=== PATIENT | female | born 1960 | race Caucasian/White ===

== ENCOUNTER 2016-09-04 21:39 | Emergency (ER) | payer MEDICARE, MEDICAID ==
[~2016-09-04] VITALS: Ht 165.1 cm; Wt 83.5 kg
[~2016-09-04 21:39] MED LIST: ALLERGY MED; BENZ0.5T3 PO; CEPH500C PO; HYDR-2856 PO; HYDR-2890 PO; LAMO100T69; MTF500T; MTF500T PO; NAPR-243 PO; PARO30TA74; PRD50T PO; PRX25T PO; RISP1TAB19 PO; RISP2TAB18; RISPERDAL; TRAZ50TA67; TRAZ50TA67 PO; [UNRECOGNIZED DRUG - CODE] IM
--- NOTE | 2016-09-04 22:32 | ED General ---
General Chief Complaint: General Problems/Pain Stated Complaint: SORE ON R BREAST, LEFT LEG/BACK PAIN, FACIAL CUTS Source of Information: Patient Exam Limitations: No Limitations History of Present Illness Time Seen by Provider: 22:24 Initial Comments Patient comes in with a 1 day history of sore on her right breast where she states she was cleaning her house and felt a sharp stinging pain and later while in the bath noticed a bright red spot on her right breast where she rest on it but it did not express anything. She states last time she had a mammogram was 1-2 years ago. She does not have a PCP. However she is seen by psychiatry here in [facility] on . She also notes she has a lump over her left back that she states causes pain that shoots down her leg and a sharp, intermittent, electric manner. Thirdly she has some light abrasions over her left cheek that she states have been there for a couple weeks and she picks at them says that they grow boils and she would like something to treat them. She also admits to recently feeling pain in her right nostril and on digging at it pulled a black beetle-like bug out of her nose. Allergies and Home Medications Allergies Coded Allergies: Bee Sting Kit *RETIRED-08/09/10 (Unverified Allergy, Mild, 11/02/08) Penicillins (Unverified Allergy, Mild, 11/02/08) Home Medications Aripiprazole 400 Mg Suser.vial, #1 (Reported) Gabapentin 600 Mg Tablet, #270 (Reported) Mupirocin 22 Gm Oint...g., #22 (Reported) Mupirocin Calcium 15 Gm Cream..g., 15 GM TP BID for 7 Days, #1 Ref 0 Prescribed by: ELIAN BARAKAT on 09/04/162246 Sulfamethoxazole/Trimethoprim 1 Each Tablet, 1 EACH PO BID for 10 Days, #20 Ref 0 Prescribed by: ELIAN BARAKAT on 09/04/162246 Trazodone HCl 100 Mg Tablet, #30 (Reported) Constitutional: No chills, No fever Respiratory: No phlegm, No short of breath, No wheezing Cardiovascular: No chest pain, No edema, No palpitations Gastrointestinal: No abdominal pain, No constipation Genitourinary: No discharge, No dysuria Skin: No pruritus, No rash Past Tchzjar-Kllcuj-Ggiyso Hx Patient Social History Alcohol Use: Occasionally Uses Recreational Drug Use: No Smoking Status: Current Everyday Smoker (3/4) Recent Foreign Travel: No Contact w/Someone Who Travel: No Surgeries HX Surgeries: Yes (perforated uterus, eye surgery) Respiratory Hx Respiratory Disorders: No Cardiovascular Hx Cardiac Disorders: No Physical Exam Vital Signs Vital Sign - Last 12Hours 09/04/16 22:20 Temp 97.9 Pulse 101 Resp 16 B/P (MAP) 117/106 Pulse Ox 96 Capillary Refill : General Appearance: No Apparent Distress, WD/WN Eyes: Bilateral Eye Normal Inspection, Bilateral Eye PERRL Neck: Full Range of Motion, Normal Inspection Respiratory: Chest Non Tender, Lungs Clear, Normal Breath Sounds Cardiovascular: Regular Rate, Rhythm, No Edema Gastrointestinal: Normal Bowel Sounds, No Organomegaly Back: Normal Inspection, No Vertebral Tenderness, Other (small 1 x 2 cm round mobile rubbery mass above left buttock consistent with lipoma) Neurologic/Psychiatric: Alert, Oriented x3, Normal Mood/Affect Skin: Warm/Dry, Other (12:00 position 3-4 cm superior to the areola there is a erythematous patch with a scab and scant purulent drainage without induration, orange peeling or retraction. No mass palpable) Lymphatic: No Adenopathy Progress/Results/Core Measures Results/Orders Vital Signs/I&O Vital Sign - Last 12Hours 09/04/16 09/04/16 22:20 23:00 Temp 97.9 Pulse 101 88 Resp 16 16 B/P (MAP) 117/106 Pulse Ox 96 96 Progress Note : Progress Note Bedside ultrasound probe applied to the right breast did not find loculation, fluid collection, cysts, mass. Departure Impression Impression: Primary Impression: Abscess of breast Additional Impressions: Sciatica Qualified Codes: M54.32 - Sciatica, left side Lipoma of buttock Impetigo Disposition: HOME, SELF-CARE Condition: Stable Departure-Patient Inst. Decision time for Depature: 22:41 Referrals: NO,LOCAL PHYSICIAN (PCP) Primary Care Physician Patient Instructions: ABSCESS Add. Discharge Instructions: You appear to have an abscess on right breast but it is still very [place] to establish with a primary care physician and get set up to do mammography this week if possible. You should apply warm compresses to the affected area 4 times a day until it resolves. You should also take the antibiotics twice daily until they are completed. You should return to the ER or establish with a primary care physician if you are not getting better or have new or worrisome symptoms such as nausea, fever, vomiting. All discharge instructions reviewed with patient and/or family. Voiced understanding. Scripts Mupirocin Calcium (Mupirocin) 15 Gm Cream..g. 15 GM TP BID for 7 Days, #1 TUBE 0 Refills Prov: ELIAN BARAKAT 09/04/16 Sulfamethoxazole/Trimethoprim (Bactrim Ds Tablet) 1 Each Tablet 1 EACH PO BID for 10 Days, #20 TAB 0 Refills Prov: ELIAN BARAKAT 09/04/16 ELIAN BARAKAT Sep 04, 2016 22:32
[2016-09-04] MEDS ORDERED: MUPI22OI2 (22:44)
[2016-09-04] MEDS ORDERED: TRAZ100T92 (22:44)
[2016-09-04] MEDS ORDERED: ARIP400S2 (22:44)
[2016-09-04] MEDS ORDERED: GABA600T2 (22:44)
[2016-09-04] MEDS ORDERED: SULF1TAB35 PO (22:47)
[2016-09-04] MEDS ORDERED: MUPI15CR11 TP (22:47)
[2016-09-04 23:00] VITALS: BP 118/84
== END 2016-09-04 23:00 | disposition home or self-care (01) ==
LOC: EDUNIT# 21:39 → ER 21:42
DX: N61.1 Abscess of the breast and nipple (principal); M54.42 Lumbago with sciatica, left side; L01.00 Impetigo, unspecified; D17.79 Benign lipomatous neoplasm of other sites; F17.210 Nicotine dependence, cigarettes, uncomplicated
CPT/HCPCS: 99281

== ENCOUNTER 2017-04-03 11:02 | Emergency (ER) | payer MEDICARE, MEDICAID ==
[~2017-04-03] VITALS: Ht 165.1 cm; Wt 83.5 kg
[~2017-04-03 11:02] MED LIST changes: +ARIP400S2; +GABA600T2; +MUPI15CR11 TP; +MUPI22OI2; +SULF1TAB35 PO; +TRAZ100T92
--- NOTE | 2017-04-03 11:12 | ED Lower Extremity ---
General Chief Complaint: Lower Extremity Stated Complaint: LT TOE PAIN, FELL OFF PORCH 1 WK AGO Source: patient Exam Limitations: no limitations History of Present Illness Time seen by provider: 11:11 Initial Comments To ER with left third fourth and fifth toe pain after falling off her porch one week ago. Onset: last week Severity: moderate Pain/Injury Location: left 3rd toe, left 4th toe, left 5th toe Method of Injury: fell Allergies and Home Medications Allergies Coded Allergies: Bee Sting Kit *RETIRED-08/09/10 (Unverified Allergy, Mild, 11/02/08) Penicillins (Unverified Allergy, Mild, 11/02/08) Home Medications Aripiprazole 400 Mg Suser.vial, #1 (Reported) Gabapentin 600 Mg Tablet, #270 (Reported) Mupirocin 22 Gm Oint...g., #22 (Reported) Mupirocin Calcium 15 Gm Cream..g., 15 GM TP BID for 7 Days, #1 Ref 0 Prescribed by: ELIAN BARAKAT on 09/04/167 Sulfamethoxazole/Trimethoprim 1 Each Tablet, 1 EACH PO BID for 10 Days, #20 Ref 0 Prescribed by: ELIAN BARAKAT on 09/04/16 2247 Trazodone HCl 100 Mg Tablet, #30 (Reported) Constitutional: see HPI EENTM: see HPI Respiratory: no symptoms reported Cardiovascular: no symptoms reported Genitourinary: no symptoms reported Musculoskeletal: see HPI Skin: no symptoms reported Psychiatric/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: No Symptoms Reported Past Ihaoakw-Ewqgzb-Qmnguc Hx Patient Social History Type Used: Cigarettes Recent Foreign Travel: No Contact w/Someone Who Travel: No Recent Hopitalizations: No Immunizations Up To Date Date of Pneumonia Vaccine: Oct 17, 2009 Psychosocial Behavioral Health Disorders: Anxiety, Bipolar, Personality Disorder Physical Exam Vital Signs Capillary Refill : General Appearance: WD/WN, no apparent distress HEENT: PERRL/EOMI, normal ENT inspection Neck: non-tender, full range of motion Respiratory: no respiratory distress, no accessory muscle use Gastrointestinal: normal bowel sounds, non tender Hips: bilateral hip non-tender, bilateral hip normal inspection, bilateral hip normal range of motion Legs: bilateral leg non-tender, bilateral leg normal inspection, bilateral leg normal range of motion Knees: bilateral knee non-tender, bilateral knee normal inspection, bilateral knee normal range of motion Ankles: bilateral ankle non-tender, bilateral ankle normal inspection, bilateral ankle normal range of motion, bilateral ankle no evidence of injury Feet: bilateral foot non-tender, bilateral foot normal inspection, bilateral foot normal range of motion, bilateral foot no evidence of injury, bilateral foot other (there is no swelling or ecchymosis or erythema or deformity) Neurologic/Psychiatric: alert, normal mood/affect, oriented x 3 Skin: normal color, warm/dry Progress/Results/Core Measures Results/Orders My Orders Orders - PEGGY JOHNSON APRN Foot, Left, 3 Views (04/03/17 11:07) Departure Impression Impression: Primary Impression: Toe fracture Disposition: HOME, SELF-CARE Condition: Stable Departure-Patient Inst. Decision time for Depature: 11:12 Referrals: [facility] (PCP) Primary Care Physician PERLA HOBSON MD (Family) Primary Care Physician Patient Instructions: Toe Fracture Add. Discharge Instructions: 1. Keep these 2 toes taped together for the next 2 weeks 2. Follow-up with your doctor 3. All discharge instructions reviewed with patient and/or family. Voiced understanding. Scripts Hydrocodone/Acetaminophen ([place] 5-325 Tablet) 1 Each Tablet 1 EACH PO Q4H Y for PAIN-SEVERE, #10 TAB Prov: PEGGY JOHNSON APRN 04/03/17 PEGGY JOHNSON APRN Apr 03, 2017 11:12
[2017-04-03] MEDS ORDERED: HYDR-757 PO (11:36)
[2017-04-03 11:45] VITALS: BP 145/89
[2017-04-03] MEDS ORDERED: HYDROcodone/APAP 5 MG/325 MG (LORTAB) TAB PO ONE (11:45)
--- NOTE | 2017-04-03 11:49 | Diagnostic Imaging Report ---
EXAMINATION: 3 views of the left foot. INDICATION: Left foot pain. FINDINGS: There is an oblique fracture through the shaft of the proximal phalanx of the little toe. The mid and distal phalanx in the little toe appears to be fused. The fracture does not have a definite extension into the proximal or distal joints which have a normal alignment. No radiopaque foreign body seen. IMPRESSION: Oblique nondisplaced fractures through the shafts of the proximal phalanx of the little toe. The findings were called to True Lindsey, the ER PA taking care of the patient at time of dictation. Dictated by: Dictated on workstation # [id number]
== END 2017-04-03 11:45 | disposition home or self-care (01) ==
LOC: EDUNIT# 11:02 → ER 11:04
DX: S92.515A Nondisplaced fracture of proximal phalanx of left lesser toe(s), initial encounter for closed fracture (principal); F41.9 Anxiety disorder, unspecified; F31.9 Bipolar disorder, unspecified; W13.8XXA Fall from, out of or through other building or structure, initial encounter
CPT/HCPCS: 73630; 99283

== ENCOUNTER 2017-06-08 21:14 | Emergency (ER) | payer MEDICARE, MEDICAID ==
[~2017-06-08] VITALS: Ht 165.1 cm; Wt 79.8 kg
[~2017-06-08 21:14] MED LIST changes: +HYDR-757 PO
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
--- OUTSIDE RECORDS SUMMARY | 2017-06-08 21:21 | XMS REPORT | Continuity of Care Document ---
Author Author [facility] Address Unknown Phone Unavailable Allergies There is no data. Medications There is no data. Problems There is no data. Procedures There is no data. Results There is no data. Encounters ACCT No. Visit Date/Time Discharge Status Pt. Type Provider Facility Loc./Unit Complaint [id number] 12/30/2011 09:34:00 12/30/2011 23:59:59 [facility] Outpatient ARCHIE BARON DDS
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
--- OUTSIDE RECORDS SUMMARY | 2017-06-08 21:21 | XMS REPORT ---
Author Author TIP VO Organization [facility] Address [address] [place] [address] Care Team Providers Care Obstetrics Teacher Name Role Phone TIP VO Unavailable PROBLEMS Type Condition ICD9-CM Code [id number] Code Onset Dates Condition Status SNOMED Code Problem Obesity (BMI 30-39.9) E66.9 Active 875733019 Problem Bipolar affective disorder in remission F31.70 Active 43895026 Problem Schizophrenia in remission F20.9 Active 8401205 Problem Chronic pain syndrome G89.4 Active 579221243 Problem Type 2 diabetes mellitus with diabetic neuropathy, without long-term current use of insulin E11.40 Active 02182611 Problem Breast pain in female N64.4 Active 75623970 ALLERGIES Substance Reaction Event Type Date Status Penicillin V Potassium anaphylaxis Drug Allergy May, Active bee stings swelling Non Drug Allergy May, Active SOCIAL HISTORY No smoking Hx information available PLAN OF CARE VITAL SIGNS MEDICATIONS Medication Instructions Dosage Frequency Start Date End Date Duration Status MetFORMIN HCl ER 500 MG Orally 2 times a day 1 tablet 12h 30 days Active Mobic 7.5 MG Orally Once a day 1 tablet 24h Active Trazodone HCl 100 MG Orally Once a day 1 tablet at bedtime 24h Active Gabapentin 100 mg Orally Once a day take with 300 mg tablet 1 tablet Active Abilify Maintena 400 MG Intramuscular every 28 days 2 ml Active Paroxetine HCl 20 MG Orally Once a day 1 tablet in the morning 24h Active RESULTS No Results PROCEDURES No Known procedures IMMUNIZATIONS No Known Immunizations
[2017-06-08] MEDS ORDERED: MELO7.5T46 (21:29)
[2017-06-08] MEDS ORDERED: DICL75TA2 (21:29)
[2017-06-08] MEDS ORDERED: METF500T4 (21:29)
[2017-06-08 21:42] LABS: BILIRUBIN,URINE NEGATIVE (NEGATIVE); CLARITY,URINE CLEAR; COLOR,URINE YELLOW; GLUCOSE, URINE (UA) NEGATIVE (NEGATIVE); KETONES,URINE NEGATIVE (NEGATIVE); LEUKOCYTE ESTERASE ,URINE 1+ (NEGATIVE); NITRITE,URINE NEGATIVE (NEGATIVE); PH,URINE 7 (5-9); PROTEIN,URINE NEGATIVE (NEGATIVE); UROBILINOGEN,URINE NORMAL (NORMAL)
[2017-06-08 21:52] LABS: BACTERIA,URINE NEGATIVE /HPF; SQUAMOUS EPITHELIAL CELL,UR 0-2 /HPF; WBC,URINE RARE /HPF
--- NOTE | 2017-06-08 21:57 | Diagnostic Imaging Report ---
INDICATION: Abdominal pain and nausea. COMPARISON: Chest radiograph performed concurrently. FINDINGS: Nonobstructive bowel gas pattern. No evidence of free intraperitoneal air. [id number] volume of colonic stool. Normal regional skeleton. IMPRESSION: Nonobstructive bowel gas pattern. Dictated by: Dictated on workstation # [id number]
--- NOTE | 2017-06-08 21:57 | Diagnostic Imaging Report ---
INDICATION: Abdominal pain and cough. COMPARISON: Abdominal radiograph performed concurrently. TECHNIQUE: Two views of the chest were obtained. FINDINGS: Retrocardiac ill-defined opacities are seen on the lateral radiograph. No pleural effusion or pneumothorax. Heart is normal in size. Normal pulmonary vasculature. IMPRESSION: Lower lobe retrocardiac opacities seen on the lateral radiograph could relate to infectious process in the appropriate setting. If patient does not have symptoms of infection, then this could represent summation shadow of normal pulmonary vasculature. Dictated by: Dictated on workstation # [id number]
[2017-06-08 22:11] LABS: BASOPHILS % (AUTO) 0 % (0-10); EOSINOPHILS # (AUTO) 0.3 10^3/uL (0.0-0.3); EOSINOPHILS % (AUTO) 2 % (0-10); HEMATOCRIT 42 % (35-52); HEMOGLOBIN 14.9 G/DL (11.5-16.0); LYMPHOCYTES # (AUTO) 3.7 X 10^3 (1.0-4.0); LYMPHOCYTES % (AUTO) 29 % (12-44); MEAN CORPUSCULAR HEMOGLOBIN 32 PG (25-34); MEAN CORPUSCULAR HGB CONC 35 G/DL (32-36); MEAN CORPUSCULAR VOLUME 92 FL (80-99); MEAN PLATELET VOLUME 9.8 FL (7.4-10.4); MONOCYTES # (AUTO) 0.9 X 10^3 (0.0-1.0); MONOCYTES % (AUTO) 7 % (0-12); NEUTROPHILS # (AUTO) 8.1 X 10^3 (1.8-7.8); NEUTROPHILS % (AUTO) 63 % (42-75); PLATELET COUNT 302 10^3/uL (130-400); RED BLOOD COUNT 4.62 10^6/uL (4.35-5.85); RED CELL DISTRIBUTION WIDTH 13.8 % (10.0-14.5); WHITE BLOOD COUNT 12.9 10^3/uL (4.3-11.0)
[2017-06-08 22:32] LABS: ALANINE AMINOTRANSFERASE 23 U/L (0-55); ALBUMIN 3.9 GM/DL (3.2-4.5); ALKALINE PHOSPHATASE 77 U/L (40-136); BILIRUBIN,TOTAL 0.2 MG/DL (0.1-1.0); BUN/CREATININE RATIO 13; CALCIUM 9.3 MG/DL (8.5-10.1); CARBON DIOXIDE 20 MMOL/L (21-32); CHLORIDE 105 MMOL/L (98-107); CREATININE SERUM 0.87 MG/DL (0.60-1.30); GFR ESTIMATED > 60; GLUCOSE 104 MG/DL (70-105); POTASSIUM 4.1 MMOL/L (3.6-5.0); SODIUM 138 MMOL/L (135-145); TOTAL PROTEIN 7.3 GM/DL (6.4-8.2)
--- NOTE | 2017-06-08 22:44 | ED General ---
General Chief Complaint: Chest Wall/Rib Pain Stated Complaint: COUGH CHEST PAIN NECK PAIN NOSE BLEED Nursing Triage Note: cough, chest wall pain, painful urination x2 weeks, nose bleed tonight. Nursing Sepsis Screen: No Definite Risk Allergies and Home Medications Allergies Coded Allergies: Bee Sting Kit *RETIRED-08/09/10 (Unverified Allergy, Mild, 11/02/08) Penicillins (Unverified Allergy, Mild, 11/02/08) Home Medications Diclofenac Sodium 75 Mg Tablet., (Reported) Gabapentin 600 Mg Tablet, #270 (Reported) Meloxicam 7.5 Mg Tablet, (Reported) Metformin HCl 500 Mg Tablet, (Reported) Trazodone HCl 100 Mg Tablet, #30 (Reported) Past Eymuofl-Hqkfrf-Vwdsoz Hx Patient Social History Alcohol Use: Denies Use Recreational Drug Use: No Type Used: Cigarettes 2nd Hand Smoke Exposure: Yes Recent Foreign Travel: No Contact w/Someone Who Travel: No Recent Infectious Disease Expo: No Recent Hopitalizations: No Immunizations Up To Date Tetanus Booster (TDap): Unknown Date of Pneumonia Vaccine: Oct 17, 2009 Seasonal Allergies Seasonal Allergies: No Surgeries History of Surgeries: Yes (perforated uterus, eye surgery) Respiratory History of Respiratory Disorde: No Cardiovascular History of Cardiac Disorders: No 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 History of 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 Disord: No 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 Genitourinary History of Genitourinary Disor: Yes Genitourinary Disorders: UTI-Chronic Gastrointestinal History of Gastrointestinal Di: No Musculoskeletal History of Musculoskeletal Dis: Yes (chronic neck pain, toe pain) Musculoskeletal Disorders: Arthritis Endocrine History of Endocrine Disorders: Yes Endocrine Disorders: Diabetes, Non-Insulin dep HEENT History of HEENT Disorders: Yes HEENT Disorders: Cataract Cancer History of Cancer: No Psychosocial History of Psychiatric Problem: Yes Behavioral Health Disorders: Anxiety, Bipolar, Personality Disorder Integumentary History of Skin or Integumenta: No Physical Exam Vital Signs Vital Sign - Last 12Hours 06/08/17 21:20 Temp 97.9 Pulse 104 Resp 18 B/P (MAP) 114/81 (92) Pulse Ox 95 O2 Delivery Room Air Capillary Refill : Less Than 3 Seconds Progress/Results/Core Measures Suspected Sepsis Recent Fever Within 48 Hours: No Infection Criteria Present: None New/Unexplained Altered Menta: No Sepsis Screen: No Definite Risk Sepsis Diagnosis: SIRS Temperature:97.9 Pulse: 104 Respiratory Rate: 18 Laboratory Tests 06/08/17 21:58: White Blood Count 12.9H Blood Pressure 114 /81 Mean: 92 Laboratory Tests 06/08/17 21:58: Creatinine 0.87, Platelet Count 302, Total Bilirubin 0.2 Results/Orders Lab Results Laboratory Tests Test 06/08/17 21:30 06/08/17 21:58 Range/Units Urine Color YELLOW Urine Clarity CLEAR Urine pH 7 5-9 Urine Specific [place] 1.010 L 1.016-1.022 Urine Protein NEGATIVE NEGATIVE Urine Glucose (UA) NEGATIVE NEGATIVE Urine Ketones NEGATIVE NEGATIVE Urine Nitrite NEGATIVE NEGATIVE Urine Bilirubin NEGATIVE NEGATIVE Urine Urobilinogen NORMAL NORMAL MG/DL Urine Leukocyte Esterase 1+ H NEGATIVE Urine RBC (Auto) NEGATIVE NEGATIVE Urine RBC NONE /HPF Urine WBC RARE /HPF Urine Squamous Epithelial Cells 0-2 /HPF Urine Crystals NONE /LPF Urine Bacteria NEGATIVE /HPF Urine Casts NONE /LPF Urine Mucus NEGATIVE /LPF Urine Culture Indicated NO White Blood Count 12.9 H 4.3-11.0 10^3/uL Red Blood Count 4.62 4.35-5.85 10^6/uL Hemoglobin 14.9 11.5-16.0 G/DL Hematocrit 42 35-52 % Mean Corpuscular Volume 92 80-99 FL Mean Corpuscular Hemoglobin 32 25-34 PG Mean Corpuscular Hemoglobin Concent 35 32-36 G/DL Red Cell Distribution Width 13.8 10.0-14.5 % Platelet Count 302 130-400 10^3/uL Mean Platelet Volume 9.8 7.4-10.4 FL Neutrophils (%) (Auto) 63 42-75 % Lymphocytes (%) (Auto) 29 12-44 % Monocytes (%) (Auto) 7 0-12 % Eosinophils (%) (Auto) 2 0-10 % Basophils (%) (Auto) 0 0-10 % Neutrophils # (Auto) 8.1 H 1.8-7.8 X 10^3 Lymphocytes # (Auto) 3.7 1.0-4.0 X 10^3 Monocytes # (Auto) 0.9 0.0-1.0 X 10^3 Eosinophils # (Auto) 0.3 0.0-0.3 10^3/uL Basophils # (Auto) 0.0 0.0-0.1 10^3/uL Sodium Level 138 135-145 MMOL/L Potassium Level 4.1 3.6-5.0 MMOL/L Chloride Level 105 98-107 MMOL/L Carbon Dioxide Level 20 L 21-32 MMOL/L Anion Gap 13 5-14 MMOL/L Blood Urea Nitrogen 11 7-18 MG/DL Creatinine 0.87 0.60-1.30 MG/DL Estimat Glomerular Filtration Rate > 60 BUN/Creatinine Ratio 13 Glucose Level 104 70-105 MG/DL Calcium Level 9.3 8.5-10.1 MG/DL Total Bilirubin 0.2 0.1-1.0 MG/DL Aspartate Amino Transf (AST/SGOT) 16 5-34 U/L Alanine Aminotransferase (ALT/SGPT) 23 0-55 U/L Alkaline Phosphatase 77 40-136 U/L Total Protein 7.3 6.4-8.2 GM/DL Albumin 3.9 3.2-4.5 GM/DL Micro Results Microbiology 06/08/17 Influenza Types A,B Antigen (VERENA) - Final, Complete My Orders Orders - RACHAEL SOTO MD Cbc With Automated Diff (06/08/17 21:21) Comprehensive Metabolic Panel (06/08/17 21:21) Ua Culture If Indicated (06/08/17 21:21) Influenza A And B Antigens (06/08/17 21:21) Saline Lock/Iv-Start (06/08/17 21:21) Chest Pa/Lat (2 View) (06/08/17 21:21) Abdomen/Kub 1view (06/08/17 21:32) Ketorolac Injection (Toradol Injection) (06/08/17 23:00) Azithromycin Tablet (Zithromax Tablet) (06/08/17 23:00) Vital Signs/I&O Vital Sign - Last 12Hours 06/08/17 21:20 Temp 97.9 Pulse 104 Resp 18 B/P (MAP) 114/81 (92) Pulse Ox 95 O2 Delivery Room Air Capillary Refill : Less Than 3 Seconds Blood Pressure Mean: 92 Progress Note : Time: 22:51 Progress Note Workup revealed leukocytosis and a left lower lobe lung infiltrate. This is suspicious for pneumonia. Patient was treated with azithromycin orally and provided a prescription to follow. Her abdominal pain and chest pain seemed to correlate with cough. However, patient describes a uterine mass identified 5 years ago for which she was to have a hysterectomy. She never followed up on that. I'm advising that she follow-up in the outpatient setting for further evaluation, possibly with outpatient imaging such as ultrasound. She was given Toradol emergency room for further treatment of her pain. I'm also recommending that she quit smoking and follow up on the chest x-ray in a week or 2 to document improvement. Diagnostic Imaging Diagonstic Imaging: Xray Plain Films/CT/US/NM/MRI: abdomen Comments Abdominal x-ray viewed by me and report reviewed. See report below: NAME: DEON URBINA [facility] REC#: [id number] PT STATUS: REG ER : 1960 PHYSICIAN: RACHAEL SOTO MD ADMIT DATE: 06/08/17/ER Signed Date of Exam:06/08/17 ABDOMEN/KUB 1VIEW INDICATION: Abdominal pain and nausea. COMPARISON: Chest radiograph performed concurrently. FINDINGS: Nonobstructive bowel gas pattern. No evidence of free intraperitoneal air. Dtjff-ru-iilvmptq volume of colonic stool. Normal regional skeleton. IMPRESSION: Nonobstructive bowel gas pattern. Dictated by: Dictated on workstation # [id number] Dict: 06/08/172151 Trans: 06/08/172157 [facility] [id number] Interpreted by: SELMA CARRERA MD Electronically signed by: SELMA CARRERA MD 06/08/172157 Diagonstic Imaging: Xray Plain Films/CT/US/NM/MRI: chest Comments Chest x-ray viewed by me and report reviewed. See report below: NAME: DEON URBINA [facility] REC#: [id number] PT STATUS: REG ER : 1960 PHYSICIAN: RACHAEL SOTO MD ADMIT DATE: 06/08/17/ER Draft Date of Exam:06/08/17 CHEST PA/LAT (2 VIEW) INDICATION: Abdominal pain and cough. COMPARISON: Abdominal radiograph performed concurrently. TECHNIQUE: Two views of the chest were obtained. FINDINGS: Retrocardiac ill-defined opacities are seen on the lateral radiograph. No pleural effusion or pneumothorax. Heart is normal in size. Normal pulmonary vasculature. IMPRESSION: Lower lobe retrocardiac opacities seen on the lateral radiograph could relate to infectious process in the appropriate setting. If patient does not have symptoms of infection, then this could represent summation shadow of normal pulmonary vasculature. Dictated on workstation # [id number] Dict: 06/08/172152 Trans: 06/08/172199 [facility] [id number] Interpreted by: SELMA CARRERA MD Departure Impression Impression: Primary Impression: Left lower lobe pneumonia Qualified Codes: J18.1 - Lobar pneumonia, unspecified organism Additional Impressions: Abdominal pain, left lower quadrant Pleuritic chest pain Disposition: HOME, SELF-CARE Condition: Improved Departure-Patient Inst. Decision time for Depature: 22:52 Referrals: [facility] (PCP) Primary Care Physician PERLA HOBSON MD (Family) Primary Care Physician Patient Instructions: Community-Acquired Pneumonia in Adults Add. Discharge Instructions: Drink plenty of clear liquids. Complete your antibiotics as prescribed. Follow -up with your primary care provider in 1 to 2 weeks. It is important that you follow-up on the chest x-ray with a repeat x-ray to document improvement. You also need to follow-up on the uterine mass you described was identified 5 years ago. Discussed this with your primary care provider. Reduce smoking is much as possible and work toward quitting. You may substitute nicotine with gum, patches, or lozenges. Do not replace with [id number] inhaled nicotine products. Return to care if symptoms worsen. For further short-term treatment of your pain, you may add ibuprofen up to 600 mg every 6 hours as needed. Ibuprofen should not be taken long-term in people with diabetes. All discharge instructions reviewed with patient and/or family. Voiced understanding. Scripts Azithromycin (Azithromycin) 250 Mg Tablet 250 MG PO DAILY, #4 TAB Prov: RACHAEL SOTO MD 06/08/17 Copy Copies To 1: PERLA HOBSON MD, JOSHUA T MD Jun 08, 2017 22:44
[2017-06-08] MEDS ORDERED: AZIT250T12 PO (22:52)
[2017-06-08] MEDS ORDERED: AZITHROMYCIN 250 MG TAB (ZITHROMAX) PO ONE (23:00)
[2017-06-08] MEDS ORDERED: KETOROLAC 30 MG/ML VIAL IVP ONE (23:00)
[2017-06-08 23:01] VITALS: BP 122/78
== END 2017-06-08 23:00 | disposition home or self-care (01) ==
LOC: EDUNIT# 21:14 → ER 21:16
DX: J18.1 Lobar pneumonia, unspecified organism (principal); R10.32 Left lower quadrant pain; E11.9 Type 2 diabetes mellitus without complications; F41.9 Anxiety disorder, unspecified; F31.9 Bipolar disorder, unspecified; F60.9 Personality disorder, unspecified; Z79.84 Long term (current) use of oral hypoglycemic drugs; Z77.22 Contact with and (suspected) exposure to environmental tobacco smoke (acute) (chronic)
CPT/HCPCS: 36415; 71046; 74018; 80053; 81000; 85025; 87804; 96374

== ENCOUNTER → 2017-06-30 | Outpatient (CLI) | payer MEDICARE, MEDICAID ==
[~2017-06-30] MED LIST changes: +AZIT250T12 PO; +DICL75TA2; +MELO7.5T46; +METF500T4
--- NOTE | 2017-06-30 15:42 | Diagnostic Imaging Report ---
INDICATION: Chronic pelvic pain. FINDINGS: Transabdominal and transvaginal pelvic sonography was performed. The uterus measures 5.3 x 3.5 x 2.4 cm. Endometrium is 3 mm in thickness. No myometrial mass is identified. The ovaries are not visualized. There is no free fluid. IMPRESSION: Nonvisualized ovaries. The study is otherwise unremarkable. Dictated by: Dictated on workstation # [id number]
--- NOTE | 2017-06-30 19:27 | Diagnostic Imaging Report ---
INDICATION: Routine screening. The current study was also evaluated with a Computer Aided Detection (CAD) system. Comparison is made with prior exam from 01/02/2005. Scattered fibroglandular densities are identified bilaterally. Overall breast density has decreased since prior examination from 2004. Small benign-appearing nodular densities are identified bilaterally. There are benign calcifications bilaterally. No malignant appearing microcalcifications are seen. The axillae are unremarkable. IMPRESSION: No mammographic features suspicious for malignancy are identified. ACR BI-RADS Category 2: Benign findings. Result letter will be mailed to the patient. Note: At least 10% of breast cancer is not imaged by mammography. Dictated by: Dictated on workstation # [id number]
== END ==
LOC: RAD 13:57
PROVIDERS: ATTEND Obstetrics & Gynecology
DX: Z12.31 Encounter for screening mammogram for malignant neoplasm of breast (principal); R10.2 Pelvic and perineal pain
CPT/HCPCS: 76830; 76856; 77067

== ENCOUNTER 2018-04-25 12:03 | Emergency (ER) | payer MEDICARE, MEDICAID ==
[~2018-04-25] VITALS: Ht 165.1 cm; Wt 83.9 kg
[~2018-04-25 12:03] MED LIST changes: +HYDR-4226 PO; -HYDR-757 PO; +METF-397; -METF500T4; +TRAZ-190; -TRAZ100T92
--- NOTE | 2018-04-25 12:33 | ED Cough/URI ---
General Chief Complaint: Cough/Cold/Flu Symptoms Stated Complaint: HOARSE THROAT/FACIAL SWELLING/COUGH Nursing Triage Note: PATIENT HERE FOR CONCERNS ABOUT THE FLU. SHE DID NOT GET HER SHOT THIS YEAR. SHE STATES SHE HAS BEEN HAVING SYMPTOMS FOR ABOUT 3 WEEKS. SHE HAS HAD A RUNNY NOSE , CHAPPED LIPS, BODY ACHES, DIARRHEA, EYE DRAINAGE AND A COUGH THAT HAS BEEN PRODUCTIVE ON AND OFF. Source: patient Exam Limitations: no limitations History of Present Illness Date Seen by Provider: Apr 25, 2018 Time Seen by Provider: 12:30 Initial Comments The patient reports that she has had upper respiratory symptoms for about 3 weeks which includes runny nose and cough and some hoarseness. There is also been body aches chapped lips. There has been no dyspnea. The cough has been productive at intervals. She denies fever or chills. She now apparently rues not getting a flu shot. Timing/Duration: other (3 weeks) Severity/Quality: moderate, severe, productive cough, sputum Associated Symptoms: muscle aches, sinus infection, sore throat Allergies and Home Medications Allergies Coded Allergies: Bee Sting Kit *RETIRED-08/09/10 (Unverified Allergy, Mild, 11/02/08) Penicillins (Unverified Allergy, Mild, 11/02/08) Home Medications Azithromycin 250 Mg Tablet, 250 MG PO DAILY Prescribed by: RACHAEL JOSEPH on 06/08/17 5935 Patient Home Medication List Home Medication List Reviewed: Yes Review of Systems Review of Systems Constitutional: see HPI EENTM: see HPI, hoarseness Respiratory: cough, dyspnea on exertion, phlegm Cardiovascular: no symptoms reported Gastrointestinal: no symptoms reported Genitourinary: no symptoms reported Musculoskeletal: no symptoms reported Skin: no symptoms reported Psychiatric/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: No Symptoms Reported Hematologic/Lymphatic: No Symptoms Reported Immunological/Allergic: no symptoms reported Past Ivrevqe-Nvbdpp-Ieyalq Hx Patient Social History Alcohol Use: Denies Use Recreational Drug Use: No Smoking Status: Current Everyday Smoker Type Used: Cigarettes 2nd Hand Smoke Exposure: Yes Recent Foreign Travel: No Contact w/Someone Who Travel: No Recent Infectious Disease Expo: No Recent Hopitalizations: No Immunizations Up To Date Tetanus Booster (TDap): Unknown Date of Pneumonia Vaccine: Oct 17, 2009 Seasonal Allergies Seasonal Allergies: No Past Medical History Surgeries: Yes (perforated uterus, eye surgery) Respiratory: No Cardiac: No 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: No 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 0oz. [id number]; 33.11 BMI Method:Stated General Appearance: mild distress, other (moderately hoarse) Eyes: Bilateral Eye Normal Inspection HEENT: normal ENT inspection Neck: non-tender, full range of motion, normal inspection Respiratory: other (basilar rhonchi in posterior lung field bilaterally) Cardiovascular: normal peripheral pulses, regular rate, rhythm, no edema, no gallop, no JVD, no murmur Gastrointestinal: normal bowel sounds, non tender, soft, no organomegaly, no pulsatile mass Extremities: normal range of motion, non-tender, normal inspection, no pedal edema, no calf tenderness, normal capillary refill, pelvis stable Neurologic/Psychiatric: 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 II-XII nml as tested, no motor/sensory deficits, alert, normal mood/affect, oriented x 3 Skin: normal color, warm/dry Lymphatic: no adenopathy Progress/Results/Core Measures Suspected Sepsis Recent Fever Within 48 Hours: No Infection Criteria Present: Suspected New Infection New/Unexplained Altered Menta: No Sepsis Screen: No Definite Risk SIRS Temperature:97.3 Pulse: 85 Respiratory Rate: 22 Laboratory Tests 04/25/18 12:34: White Blood Count 9.6 Blood Pressure 118 /75 Mean: 89 Laboratory Tests 04/25/18 12:34: Creatinine 0.81, Platelet Count 341, Total Bilirubin 0.3 Results/Orders Lab Results Laboratory Tests Test 04/25/18 12:34 Range/Units White Blood Count 9.6 4.3-11.0 10^3/uL Red Blood Count 4.86 4.35-5.85 10^6/uL Hemoglobin 15.0 11.5-16.0 G/DL Hematocrit 45 35-52 % Mean Corpuscular Volume 93 80-99 FL Mean Corpuscular Hemoglobin 31 25-34 PG Mean Corpuscular Hemoglobin Concent 33 32-36 G/DL Red Cell Distribution Width 13.2 10.0-14.5 % Platelet Count 341 130-400 10^3/uL Mean Platelet Volume 9.3 7.4-10.4 FL Neutrophils (%) (Auto) 67 42-75 % Lymphocytes (%) (Auto) 23 12-44 % Monocytes (%) (Auto) 9 0-12 % Eosinophils (%) (Auto) 2 0-10 % Basophils (%) (Auto) 0 0-10 % Neutrophils # (Auto) 6.4 1.8-7.8 X 10^3 Lymphocytes # (Auto) 2.2 1.0-4.0 X 10^3 Monocytes # (Auto) 0.8 0.0-1.0 X 10^3 Eosinophils # (Auto) 0.2 0.0-0.3 10^3/uL Basophils # (Auto) 0.0 0.0-0.1 10^3/uL Sodium Level 139 135-145 MMOL/L Potassium Level 4.5 3.6-5.0 MMOL/L Chloride Level 105 98-107 MMOL/L Carbon Dioxide Level 25 21-32 MMOL/L Anion Gap 9 5-14 MMOL/L Blood Urea Nitrogen 11 7-18 MG/DL Creatinine 0.81 0.60-1.30 MG/DL Estimat Glomerular Filtration Rate > 60 BUN/Creatinine Ratio 14 Glucose Level 74 70-105 MG/DL Calcium Level 10.0 8.5-10.1 MG/DL Corrected Calcium 9.8 8.5-10.1 MG/DL Total Bilirubin 0.3 0.1-1.0 MG/DL Aspartate Amino Transf (AST/SGOT) 17 5-34 U/L Alanine Aminotransferase (ALT/SGPT) 18 0-55 U/L Alkaline Phosphatase 76 40-136 U/L Total Protein 7.5 6.4-8.2 GM/DL Albumin 4.2 3.2-4.5 GM/DL Group A Streptococcus Screen NEGATIVE NEGATIVE Micro Results Microbiology 04/25/18 Throat Culture - Final, Complete No Beta Strep isolated 04/25/18 Influenza Types A,B Antigen (VERENA) - Final, Complete My Orders Orders - NAT CHARLES MD Cbc With Automated Diff (04/25/18 12:28) Comprehensive Metabolic Panel (04/25/18 12:28) Rapid Strep A Screen (04/25/18 12:28) Influenza A And B Antigens (04/25/18 12:28) Chest 1 View, Ap/Pa Only (04/25/18 12:28) Vital Signs/I&O Capillary Refill : Less Than 3 Seconds Blood Pressure Mean: 89 Departure Communication (Admissions) Laboratory and rapid strep are negative. Impression Primary Impression: viral URI Disposition: HOME, SELF-CARE Condition: Stable/Unchanged Departure-Patient Inst. Decision time for Depature: 12:15 Referrals: [facility] (PCP/Family) Primary Care Physician Patient Instructions: Cough, Adult (DC) Add. Discharge Instructions: All discharge instructions reviewed with patient and/or family. Voiced understanding. Symptomatic treatment which is to say plenty of rest, lots of liquids, cough medicine with guaifenesin, Tylenol 650 every 4 hours for Motrin 600 every 6 hours for fever aches and discomfort. NAT CHARLES MD Apr 25, 2018 12:33
[2018-04-25 12:44] LABS: BASOPHILS % (AUTO) 0 % (0-10); EOSINOPHILS # (AUTO) 0.2 10^3/uL (0.0-0.3); EOSINOPHILS % (AUTO) 2 % (0-10); HEMATOCRIT 45 % (35-52); LYMPHOCYTES # (AUTO) 2.2 X 10^3 (1.0-4.0); LYMPHOCYTES % (AUTO) 23 % (12-44); MEAN CORPUSCULAR HEMOGLOBIN 31 PG (25-34); MEAN CORPUSCULAR HGB CONC 33 G/DL (32-36); MEAN CORPUSCULAR VOLUME 93 FL (80-99); MEAN PLATELET VOLUME 9.3 FL (7.4-10.4); MONOCYTES # (AUTO) 0.8 X 10^3 (0.0-1.0); MONOCYTES % (AUTO) 9 % (0-12); NEUTROPHILS # (AUTO) 6.4 X 10^3 (1.8-7.8); NEUTROPHILS % (AUTO) 67 % (42-75); PLATELET COUNT 341 10^3/uL (130-400); RED BLOOD COUNT 4.86 10^6/uL (4.35-5.85); RED CELL DISTRIBUTION WIDTH 13.2 % (10.0-14.5); WHITE BLOOD COUNT 9.6 10^3/uL (4.3-11.0)
[2018-04-25 12:57] VITALS: BP 118/75
[2018-04-25 13:02] LABS: ALANINE AMINOTRANSFERASE 18 U/L (0-55); ALBUMIN 4.2 GM/DL (3.2-4.5); ALKALINE PHOSPHATASE 76 U/L (40-136); BILIRUBIN,TOTAL 0.3 MG/DL (0.1-1.0); BUN/CREATININE RATIO 14; CARBON DIOXIDE 25 MMOL/L (21-32); CHLORIDE 105 MMOL/L (98-107); CREATININE SERUM 0.81 MG/DL (0.60-1.30); GFR ESTIMATED > 60; GLUCOSE 74 MG/DL (70-105); POTASSIUM 4.5 MMOL/L (3.6-5.0); SODIUM 139 MMOL/L (135-145); TOTAL PROTEIN 7.5 GM/DL (6.4-8.2)
--- NOTE | 2018-04-25 13:17 | Diagnostic Imaging Report ---
PATIENT HISTORY: Cough. TECHNIQUE: Single frontal view of the chest. COMPARISON: 06/08/2017. FINDINGS: The lung volumes are normal. No focal consolidation is seen. No large pleural effusion or pneumothorax is seen. The cardiomediastinal silhouette is normal in size and contour. No acute osseous abnormality is seen. IMPRESSION: No acute pulmonary abnormality seen. Dictated by: Dictated on workstation # [id number]
== END 2018-04-25 12:57 | disposition left against medical advice (07) ==
LOC: EDUNIT# 12:03 → ER 12:04
DX: J06.9 Acute upper respiratory infection, unspecified (principal); E11.9 Type 2 diabetes mellitus without complications; F41.9 Anxiety disorder, unspecified; F31.9 Bipolar disorder, unspecified; F17.210 Nicotine dependence, cigarettes, uncomplicated; Z88.0 Allergy status to penicillin; Z87.440 Personal history of urinary (tract) infections
CPT/HCPCS: 36415; 71045; 80053; 85025; 87430; 87804

== ENCOUNTER 2018-11-04 21:16 | Emergency (ER) | payer MEDICARE, MEDICAID ==
[~2018-11-04] VITALS: Ht 165.1 cm; Wt 90.7 kg
[~2018-11-04 21:16] MED LIST changes: -GABA600T2; +GBPN600T
[2018-11-04] MEDS ORDERED: IBUPROFEN 800 MG (MOTRIN) TAB PO STA (22:12)
[2018-11-04] MEDS ORDERED: RX-CEPHALEXIN (KEFLEX) 250 MG CAP PPK#4 PO STA (22:12)
[2018-11-04] MEDS ORDERED: DEXAMETHASONE 10 MG/ML (DECADRON) 1 ML VIAL IM ONE (22:15)
[2018-11-04] MEDS ORDERED: CEPH500T PO (22:17)
--- NOTE | 2018-11-04 22:17 | ED General ---
General Chief Complaint: General Problems/Pain Stated Complaint: LUMPS ON HEAD Nursing Triage Note: Pt amb to triage w/o difficulty. a&ox4. c/o generalized ulcerations multile areas over bilat extremities and scalp. Pt states, "I slept on the wet grass last night, and I think something may have bit me!" Nursing Sepsis Screen: No Definite Risk History of Present Illness Date Seen by Provider: Nov 04, 2018 Time Seen by Provider: 20:00 Initial Comments 58 year old , homeless patient reports multiple areas of pruritus after sleeping in the grass and excoriated areas to her scalp. She also complains of a headache. Timing/Duration: 24 Hours Severity: Mild Associated Systoms: Denies Symptoms Allergies and Home Medications Allergies Coded Allergies: Bee Sting Kit *RETIRED-08/09/10 (Unverified Allergy, Mild, 11/02/08) Penicillins (Unverified Allergy, Mild, 11/02/08) Home Medications Azithromycin 250 Mg Tablet, 250 MG PO DAILY Prescribed by: RACHAEL JOSEPH on 06/08/172251 Cephalexin 500 Mg Tablet, 500 MG PO TID Prescribed by: MARVIN AHUMADA on 11/04/18 2217 Patient Home Medication List Home Medication List Reviewed: Yes Review of Systems Review of Systems Constitutional: no symptoms reported, see HPI Skin: lumps, pruritus, rash All Other Systems Reviewed Negative Unless Noted: Yes Past Eovwwna-Ngpvmf-Ddhrhg Hx Past Med/Social Hx: Reviewed Nursing Past Med/Soc Hx Patient Social History Alcohol Use: Rarely Uses Number of Drinks Today: 2 Alcohol Beverage of Choice: Vodka Recreational Drug Use: Yes Drug of Choice: hx: cocaine Smoking Status: Current Everyday Smoker Type Used: Cigarettes 2nd Hand Smoke Exposure: Yes Recent Foreign Travel: No Contact w/Someone Who Travel: No Recent Infectious Disease Expo: No Recent Hopitalizations: No Immunizations Up To Date Tetanus Booster (TDap): Unknown Date of Pneumonia Vaccine: Oct 17, 2009 Seasonal Allergies Seasonal Allergies: No Past Medical History Surgeries: Yes (perforated uterus, eye surgery) Respiratory: No Cardiac: No 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: No 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 0oz. 90.106383jl; 33.11 BMI Method:Estimated General Appearance: No Apparent Distress, WD/WN HEENT: TMs Normal, Normal ENT Inspection, Pharynx Normal, Other (two areas of folliculitis noted to the left occipital area and right temporal area, no induration or fluctuance noted.) Neck: Full Range of Motion, Normal Inspection, Non Tender, Supple; No Lymphadenopathy (L), No Lymphadenopathy (R) Respiratory: Chest Non Tender, Lungs Clear Cardiovascular: Regular Rate, Rhythm, Normal Peripheral Pulses Gastrointestinal: Normal Bowel Sounds, Non Tender, Soft Skin: Normal Color, Warm/Dry, Rash (Mild insect bites and excoriation noted to arms and legs, no erythema or cellulits. ) Lymphatic: No Adenopathy Progress/Results/Core Measures Suspected Sepsis Recent Fever Within 48 Hours: No Infection Criteria Present: None New/Unexplained Altered Menta: No Sepsis Screen: No Definite Risk SIRS Temperature:96.9 Pulse: 69 Respiratory Rate: 17 Blood Pressure 123 /78 Mean: 93 Results/Orders My Orders Orders - MARVIN AHUMAAD Ibuprofen Tablet (Motrin Tablet) (11/04/18 22:12) Dexamethasone Injection (Decadron Inject (11/04/18 22:15) Rx-Cephalexin Capsule (Rx-Keflex Capsule (11/04/18 22:12) Cephalexin Capsule (Keflex Capsule) (11/04/18 22:30) Medications Given in ED Current Medications Medications Dose Ordered Sig/Juanita Route Start Time Stop Time Status Last Admin Dose Admin Cephalexin HCl 500 mg ONCE ONCE PO 11/04/18 22:30 11/04/18 22:31 DC 11/04/18 22:30 500 MG Dexamethasone Sodium Phosphate 10 mg ONCE ONCE IM 11/04/18 22:15 11/04/18 22:16 DC 11/04/18 22:26 10 MG Vital Signs/I&O 11/04/18 11/04/18 21:35 22:35 Temp 96.9 96.9 Pulse 69 72 Resp 17 16 B/P (MAP) 123/78 (93) 123/78 (93) Pulse Ox 97 98 O2 Delivery Room Air Room Air Capillary Refill : Less Than 3 Seconds Blood Pressure Mean: 93 Departure Impression Primary Impression: Folliculitis Additional Impression: Head ache Qualified Codes: R51 - Headache Disposition: 01 HOME, SELF-CARE Condition: Improved Departure-Patient Inst. Decision time for Depature: 22:15 Referrals: [facility] (PCP/Family) Primary Care Physician Patient Instructions: Headache, Adult (DC), Folliculitis (DC) Add. Discharge Instructions: Take antibiotic as prescribed. Follow up at [facility]. Use Ibuprofen 600mg every 8 hours for headache. Keep skin clean and dry. Return to Emergency Dept for urgent health care needs. All discharge instructions reviewed with patient and/or family. Voiced understanding. Scripts Cephalexin (Cephalexin) 500 Mg Tablet 500 MG PO TID, #21 TAB 0 Refills Prov: MARVIN AHUMADA 11/04/18 MARVIN AHUMADA Nov 04, 2018 22:17
[2018-11-04] MEDS ORDERED: CEPHALEXIN 250 MG (KEFLEX) CAP PO ONE (22:30)
[2018-11-04 22:35] VITALS: BP 123/78
== END 2018-11-04 22:35 | disposition home or self-care (01) ==
LOC: EDUNIT# 21:16 → ER 21:17
DX: L73.9 Follicular disorder, unspecified (principal); R51 Headache; E11.9 Type 2 diabetes mellitus without complications; F41.9 Anxiety disorder, unspecified; F31.9 Bipolar disorder, unspecified; F60.9 Personality disorder, unspecified; F17.210 Nicotine dependence, cigarettes, uncomplicated; Z88.0 Allergy status to penicillin; Z87.440 Personal history of urinary (tract) infections
CPT/HCPCS: 96372; 99284

== ENCOUNTER 2018-11-22 22:00 | Emergency (ER) | payer MEDICARE, MEDICAID ==
[~2018-11-22] VITALS: Ht 165.1 cm; Wt 80.7 kg
[~2018-11-22 22:00] MED LIST changes: +CEPH500T PO
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
--- OUTSIDE RECORDS SUMMARY | 2018-11-22 22:10 | XMS REPORT | Continuity of Care Document ---
Author Organization Unknown Address Unknown Allergies There is no data. Medications There is no data. Problems There is no data. Procedures There is no data. Results Test Result Range LIPID PANEL - 02/27/17 12:04 Cholesterol, Total 195 mg/dL 100-199 Triglycerides 242 mg/dL 0-149 HDL Cholesterol 35 mg/dL >39 VLDL Cholesterol Andres 48 mg/dL 5-40 LDL Cholesterol Calc 112 mg/dL 0-99 Comment: NRG THYROID ANALYZER - 06/10/17 14:50 TSH 1.71 mIU/L 0.40-4.50 A1C - 06/10/17 14:50 HEMOGLOBIN A1c 5.7 % of total Hgb <5.7 Encounters ACCT No. Visit Date/Time Discharge Status Pt. Type Provider Facility Loc./Unit Complaint [id number] 11/05/2018 12:45:00 11/05/2018 23:59:59 CLS Outpatient MAXIMINO INIGUEZ [facility] WALK IN [facility] [id number] 06/10/2017 14:40:00 Document Registration [id number] 02/27/2017 11:20:00 Document Registration [id number] 12/30/2011 09:34:00 12/30/2011 23:59:59 CLS Outpatient ARCHIE BARON DDS
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
[2018-11-22 23:18] LABS: BILIRUBIN,URINE NEGATIVE (NEGATIVE); CLARITY,URINE CLEAR; COLOR,URINE YELLOW; GLUCOSE, URINE (UA) NEGATIVE (NEGATIVE); KETONES,URINE NEGATIVE (NEGATIVE); LEUKOCYTE ESTERASE ,URINE 2+ (NEGATIVE); NITRITE,URINE NEGATIVE (NEGATIVE); PH,URINE 6 (5-9); PROTEIN,URINE 2+ (NEGATIVE); UROBILINOGEN,URINE 1 MG/DL (NORMAL)
[2018-11-22 23:31] LABS: BACTERIA,URINE FEW /HPF; HYALINE CASTS, URINE 0-2 /LPF; WBC,URINE 0-2 /HPF
[2018-11-22 23:32] LABS: AMPHETAMINE SCREEN, URINE POSITIVE (NEGATIVE); BARBITURATE SCREEN URINE NEGATIVE (NEGATIVE); BENZODIAZEPINES SCREEN URINE NEGATIVE (NEGATIVE); CANNABINOID SCREEN, URINE NEGATIVE (NEGATIVE); COCAINE SCREEN URINE NEGATIVE (NEGATIVE); METHADONE STAT NEGATIVE (NEGATIVE); METHAMPHETAMINE SCREEN URINE S POSITIVE (NEGATIVE); OPIATE SCREEN URINE NEGATIVE (NEGATIVE); OXYCODONE STAT NEGATIVE (NEGATIVE); PROPOXYPHENE STAT NEGATIVE (NEGATIVE); TRICYCLIC ANTIDEPRESSANTS SCRE NEGATIVE (NEGATIVE)
[2018-11-23 00:40] LABS: BASOPHILS % (AUTO) 0 % (0-10); EOSINOPHILS # (AUTO) 0.2 10^3/uL (0.0-0.3); EOSINOPHILS % (AUTO) 3 % (0-10); HEMATOCRIT 40 % (35-52); HEMOGLOBIN 13.5 G/DL (11.5-16.0); LYMPHOCYTES # (AUTO) 2.2 X 10^3 (1.0-4.0); LYMPHOCYTES % (AUTO) 24 % (12-44); MEAN CORPUSCULAR HEMOGLOBIN 31 PG (25-34); MEAN CORPUSCULAR HGB CONC 34 G/DL (32-36); MEAN CORPUSCULAR VOLUME 92 FL (80-99); MEAN PLATELET VOLUME 9.7 FL (7.4-10.4); MONOCYTES # (AUTO) 0.7 X 10^3 (0.0-1.0); MONOCYTES % (AUTO) 8 % (0-12); NEUTROPHILS # (AUTO) 5.9 X 10^3 (1.8-7.8); NEUTROPHILS % (AUTO) 65 % (42-75); PLATELET COUNT 330 10^3/uL (130-400); RED CELL DISTRIBUTION WIDTH 13.5 % (10.0-14.5)
[2018-11-23 01:01] LABS: ALANINE AMINOTRANSFERASE 20 U/L (0-55); ALBUMIN 3.9 GM/DL (3.2-4.5); ALKALINE PHOSPHATASE 75 U/L (40-136); BILIRUBIN,TOTAL 0.5 MG/DL (0.1-1.0); BUN/CREATININE RATIO 7; CALCIUM 9.4 MG/DL (8.5-10.1); CARBON DIOXIDE 23 MMOL/L (21-32); CHLORIDE 106 MMOL/L (98-107); CREATININE SERUM 0.83 MG/DL (0.60-1.30); GFR ESTIMATED > 60; GLUCOSE 161 MG/DL (70-105); POTASSIUM 3.2 MMOL/L (3.6-5.0); SALICYLATE < 5.0 MG/DL (5.0-20.0); SODIUM 139 MMOL/L (135-145); TOTAL PROTEIN 6.5 GM/DL (6.4-8.2)
[2018-11-23 01:05] LABS: ACETAMINOPHEN < 10 UG/ML (10-30)
[2018-11-23] MEDS ORDERED: metFORMIN 500 MG (GLUCOPHAGE) TAB PO ONE (02:30)
[2018-11-23] MEDS ORDERED: KCL 10 MEQ TAB (MICRO K) PO ONE (02:30)
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
[2018-11-23 03:45] VITALS: BP 112/76
== END 2018-11-23 03:45 | disposition home or self-care (01) ==
LOC: EDUNIT# 22:00 → ER 22:02
DX: T14.8XXA Other injury of unspecified body region, initial encounter (principal); R45.851 Suicidal ideations; F14.10 Cocaine abuse, uncomplicated; F12.10 Cannabis abuse, uncomplicated; F17.210 Nicotine dependence, cigarettes, uncomplicated; E11.9 Type 2 diabetes mellitus without complications; F31.9 Bipolar disorder, unspecified; F60.9 Personality disorder, unspecified; Z87.440 Personal history of urinary (tract) infections; Z88.0 Allergy status to penicillin; Z91.030 Bee allergy status; Z59.0 Homelessness; W57.XXXA Bitten or stung by nonvenomous insect and other nonvenomous arthropods, initial encounter
CPT/HCPCS: 36415; 80053; 80306; 80320; 80329; 81000; 84443; 85025; 93005; 93041

== ENCOUNTER 2019-05-06 11:07 | Emergency (ER) | payer MEDICARE, MEDICAID ==
[~2019-05-06] VITALS: Ht 165.1 cm; Wt 84.7 kg
[2019-05-06] MEDS ORDERED: KETOROLAC 60 MG/2 ML VIAL IM ONE (11:45)
--- NOTE | 2019-05-06 11:48 | ED Integumentary General ---
General Chief Complaint: Skin/Wound Problems Stated Complaint: SPIDER BITE, ARM PAIN Source: patient Exam Limitations: no limitations History of Present Illness Date Seen by Provider: May 06, 2019 Time Seen by Provider: 11:35 Initial Comments Patient presents to ER by private conveyance with chief complaint of last week she has had a spot show up on her right breast that she was able to squeeze some pink fluid out of. She has a history of abscesses. She does not have a history of any constitutional symptoms weight loss weight gain. She is diabetic with good blood sugars on metformin. She also has complaints of black stools last couple days and she noted spiders crawling out of her stool today. She takes Zyprexa 5 mg up to twice a day as necessary for hallucinations secondary to her schizoaffective disorder. She has also been asked couple days on her right ear. She is followed by [facility] at [facility]. She follows with psychiatry Dr. Ibrahim. Allergies and Home Medications Allergies Coded Allergies: Bee Sting Kit *RETIRED-08/09/10 (Unverified Allergy, Mild, 11/02/08) Penicillins (Unverified Allergy, Mild, 11/02/08) Home Medications Azithromycin 250 Mg Tablet, 250 MG PO DAILY Prescribed by: RACHAEL JOSEPH on 06/08/172251 Cephalexin 500 Mg Tablet, 500 MG PO TID Prescribed by: MARVIN AHUMADA on 11/04/18 2217 Patient Home Medication List Home Medication List Reviewed: Yes Review of Systems Review of Systems Constitutional: No chills, No fever EENTM: No ear discharge, No ear pain Respiratory: No cough, No short of breath Cardiovascular: No chest pain, No edema Gastrointestinal: see HPI; No abdominal pain, No constipation, No diarrhea, No nausea, No vomiting Genitourinary: No discharge, No dysuria Musculoskeletal: No back pain, No joint pain Past Pydyzun-Ngkucx-Uvjnwr Hx Patient Social History Alcohol Use: Regular Use Alcohol Beverage of Choice: Vodka Recreational Drug Use: Yes Drug of Choice: hx: cocaine, MARIJUANA, UNSPECIFIED "UPPERS" Smoking Status: Current Everyday Smoker Type Used: Cigarettes 2nd Hand Smoke Exposure: Yes Recent Foreign Travel: No Contact w/Someone Who Travel: No Recent Hopitalizations: No Immunizations Up To Date Tetanus Booster (TDap): Unknown PED Vaccines UTD: Yes Date of Pneumonia Vaccine: Oct 17, 2009 Seasonal Allergies Seasonal Allergies: No Past Medical History Surgeries: Yes (perforated uterus, eye surgery) Respiratory: No Cardiac: No 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 Genitourinary: Yes UTI-Chronic Gastrointestinal: No Musculoskeletal: Yes (chronic neck pain, toe pain) Arthritis Endocrine: Yes Diabetes, Non-Insulin dep HEENT: Yes Cataract Cancer: No Psychosocial: Yes (Substance abuse) Anxiety, Bipolar, Personality Disorder Integumentary: No Physical Exam Vital Signs Vital Signs - First Documented 05/06/19 11:25 Temp 36.9 Pulse 88 Resp 15 B/P (MAP) 112/69 (83) Pulse Ox 100 O2 Delivery Room Air Capillary Refill : General Appearance: WD/WN, no apparent distress HEENT: normal ENT inspection, pharynx normal Neck: full range of motion, normal inspection Cardiovascular: normal peripheral pulses, regular rate, rhythm Respiratory: lungs clear, normal breath sounds, no respiratory distress, no accessory muscle use Gastrointestinal: normal bowel sounds, non tender, soft Neurologic/Psychiatric: alert, normal mood/affect, oriented x 3 Skin: other (abscess, right proximal breast approximately 9:00 erythematous with mild induration and no fluctuance. Dried drainage. Right tragus has a scaly pearlescent looking abrasion) Comments Rectal exam showed some few dried remnants of dark brown to black stool no gross blood. No arachnid's. Rectal vault with a small amount of stool formed. No mass palpated. Progress/Results/Core Measures Results/Orders My Orders Orders - ELIAN BARAKAT Fecal Occult Bedside (05/06/19 11:43) Ketorolac Injection (Toradol Injection) (05/06/19 11:45) Medications Given in ED Current Medications Medications Dose Ordered Sig/Juanita Route Start Time Stop Time Status Last Admin Dose Admin Ketorolac Tromethamine 60 mg ONCE ONCE IM 05/06/19 11:45 05/06/19 11:46 DC 05/06/19 12:03 60 MG Vital Signs/I&O 05/06/19 11:25 Temp 36.9 Pulse 88 Resp 15 B/P (MAP) 112/69 (83) Pulse Ox 100 O2 Delivery Room Air Progress Progress Note #1: Time: 12:37 Progress Note The right ear lesion has only been there for about a week according to her however she does have hallucinations of spiders coming out of her rectum so we are going to recommend she follow up with primary care as it could represent a squamous cell carcinoma. The abscess on her right breast appears to be drained and will put on Bactrim to help you. Toradol for her pain. Progress Note #2: Time: 12:43 Progress Note Fecal occult blood test negative. Departure Impression Primary Impression: Abscess Additional Impression: Earlobe lesion Qualified Codes: H61.91 - Disorder of right external ear, unspecified Disposition: HOME, SELF-CARE Condition: Stable Departure-Patient Inst. Decision time for Depature: 12:43 Referrals: NO,LOCAL PHYSICIAN (PCP/Family) Primary Care Physician Patient Instructions: Boil (DC) Add. Discharge Instructions: Warm compresses every hour as needed for pain relief of the breast. Tylenol 1000 mg every 8 hours as needed for pain. Naproxen 500 mg 1 tablet up to twice a day as needed for pain. Follow-up with your primary care doctor in the next 1-2 weeks for reexamination of the lesion on your ear. It may need to be biopsied. All discharge instructions reviewed with patient and/or family. Voiced understanding. ELIAN BARAKAT May 06, 2019 11:48
[2019-05-06 12:46] VITALS: BP 112/69
[2019-05-06] MEDS ORDERED: SULF1TAB35 PO (12:47)
[2019-05-06] MEDS ORDERED: NAPR-1071 PO (12:47)
== END 2019-05-06 12:47 | disposition home or self-care (01) ==
LOC: EDUNIT# 11:07 → ER 11:08
DX: N61.1 Abscess of the breast and nipple (principal); H61.91 Disorder of right external ear, unspecified; E11.9 Type 2 diabetes mellitus without complications; F41.9 Anxiety disorder, unspecified; F31.9 Bipolar disorder, unspecified; F60.9 Personality disorder, unspecified; F17.210 Nicotine dependence, cigarettes, uncomplicated; Z87.440 Personal history of urinary (tract) infections; Z79.84 Long term (current) use of oral hypoglycemic drugs; Z88.0 Allergy status to penicillin
CPT/HCPCS: 82274; 96372

== ENCOUNTER 2019-05-26 08:51 | Emergency (ER) | payer MEDICARE, MEDICAID ==
[~2019-05-26] VITALS: Ht 162 cm; Wt 68.0 kg
[~2019-05-26 08:51] MED LIST changes: +NAPR-1071 PO
--- NOTE | 2019-05-26 09:24 | ED General ---
General Chief Complaint: General Problems/Pain Stated Complaint: PELVIS PAIN-FELL Source of Information: Patient Exam Limitations: No Limitations History of Present Illness Date Seen by Provider: May 26, 2019 Time Seen by Provider: 09:18 Initial Comments This 58-year-old female presents with several complaints. Patient fell 2 weeks ago while practicing martial arts on her porch and hit her low back and upper pelvis. She is complaining of continued pain in the area without paresthesias or weakness to her lower extremities. She denies urinary or bowel problems. She denies saddle anesthesia. Patient is complaining of a right shoulder pain without history of trauma. The patient denies loss of sensation or range of motion of the right upper extremity. She denies other joint pain. The patient has skin lesions to the outer aspect of her right ear and scalp. She is complaining of pain in the areas. She denies evaluation by dermatology to this point. She was referred that has not had an opportunity to follow through. Patient is in need of a refill of her metformin for her diabetes. The patient takes 500 mg twice a day metformin. Allergies and Home Medications Allergies Coded Allergies: Bee Sting Kit *RETIRED-08/09/10 (Unverified Allergy, Mild, 11/02/08) Penicillins (Unverified Allergy, Mild, 11/02/08) Patient Home Medication List Home Medication List Reviewed: Yes Review of Systems Review of Systems Constitutional: No chills, No fever EENTM: ear pain Respiratory: no symptoms reported; No cough Cardiovascular: no symptoms reported Gastrointestinal: no symptoms reported Genitourinary: no symptoms reported Musculoskeletal: see HPI, back pain, joint pain Skin: see HPI, other (lesions over the outer right ear and frontal parietal region of the scalp in the midline) Psychiatric/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: No Symptoms Reported Hematologic/Lymphatic: No Symptoms Reported Immunological/Allergic: no symptoms reported Past Fofklgt-Neilyf-Baqtwa Hx Past Med/Social Hx: Reviewed Nursing Past Med/Soc Hx Patient Social History Alcohol Beverage of Choice: Vodka Drug of Choice: hx: cocaine, MARIJUANA, UNSPECIFIED "UPPERS" Type Used: Cigarettes 2nd Hand Smoke Exposure: Yes Recent Foreign Travel: No Contact w/Someone Who Travel: No Recent Hopitalizations: No Immunizations Up To Date Tetanus Booster (TDap): Unknown PED Vaccines UTD: Yes Date of Pneumonia Vaccine: Oct 17, 2009 Seasonal Allergies Seasonal Allergies: No Past Medical History Surgeries: Yes (perforated uterus, eye surgery) Respiratory: No Cardiac: No 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 0oz. 80.210087sp; 31.00 BMI Method:Estimated General Appearance: No Apparent Distress, WD/WN HEENT: Other (there are lesions over the outer ear near the pinna and the parietal juncture of the scalp suggestive of pre-cancerous skin lesions.) Neck: Full Range of Motion, Normal Inspection, Supple Respiratory: Chest Non Tender, Lungs Clear, Normal Breath Sounds Cardiovascular: Regular Rate, Rhythm, No Murmur Gastrointestinal: Normal Bowel Sounds, Non Tender, Soft Back: Other (there is tenderness to palpation over the lumbar region and the right side of the pelvis posteriorly) Extremity: Normal Capillary Refill ( no crepitus or instability was noted), Normal Inspection Neurologic/Psychiatric: Oriented x3, No Motor/Sensory Deficits, Normal Mood/Affect Skin: Other (apparent precancerous skin lesions over the right ear and scalp.) Progress/Results/Core Measures Suspected Sepsis SIRS Temperature: Pulse: Respiratory Rate: Blood Pressure / Mean: Results/Orders Lab Results Laboratory Tests Test 05/26/19 09:25 Range/Units Urine Color YELLOW Urine Clarity CLEAR Urine pH 7.0 5-9 Urine Specific [place] 1.020 1.016-1.022 Urine Protein NEGATIVE NEGATIVE Urine Glucose (UA) NEGATIVE NEGATIVE Urine Ketones NEGATIVE NEGATIVE Urine Nitrite NEGATIVE NEGATIVE Urine Bilirubin NEGATIVE NEGATIVE Urine Urobilinogen 0.2 < = 1.0 MG/DL Urine Leukocyte Esterase NEGATIVE NEGATIVE Urine RBC (Auto) NEGATIVE NEGATIVE Urine RBC NONE /HPF Urine WBC NONE /HPF Urine Squamous Epithelial Cells 0-2 /HPF Urine Crystals NONE /LPF Urine Bacteria NEGATIVE /HPF Urine Casts NONE /LPF Urine Mucus NEGATIVE /LPF Urine Culture Indicated NO My Orders Orders - KUNAL GALICIA MD Lumbar Spine - 2-3 Views (05/26/19 09:17) Shoulder, Right, 3 Views (05/26/19 09:17) Ua Culture If Indicated (05/26/19 09:26) Ketorolac Injection (Toradol Injection) (05/26/19 10:00) Medications Given in ED Current Medications Medications Dose Ordered Sig/Juanita Route Start Time Stop Time Status Last Admin Dose Admin Ketorolac Tromethamine 60 mg ONCE ONCE IM 05/26/19 10:00 05/26/19 10:01 DC 05/26/19 10:11 60 MG Vital Signs/I&O 05/26/19 09:10 Temp 37.0 Pulse 91 Resp 16 B/P (MAP) 133/88 (103) Pulse Ox 96 O2 Delivery Room Air Capillary Refill : Progress Note : Time: 10:14 Progress Note X-rays of the right shoulder and lumbosacral spine demonstrate degenerative changes of the right shoulder and a compression fracture of L2. Urinalysis was unremarkable. The patient was given Toradol 60 mg IM for pain. Departure Impression Primary Impression: Arthritis Additional Impression: Compression fracture of L2 Qualified Codes: S32.020A - Wedge compression fracture of second lumbar vertebra, initial encounter for closed fracture Disposition: HOME, SELF-CARE Condition: Improved Departure-Patient Inst. Decision time for Depature: 10:15 Referrals: [facility] (PCP/Family) Primary Care Physician Patient Instructions: Vertebral Compression Fracture (DC) Add. Discharge Instructions: Toradol and Flexeril for pain and spasm. Follow-up with [facility] by calling them today. Come back for any problems or questions. All discharge instructions reviewed with patient and/or family. Voiced understanding. Scripts Tramadol HCl (Ultram) 50 Mg Tablet 100 MG PO Q6H for Pain, #30 TAB Prov: KUNAL GALICIA MD 05/26/19 Cyclobenzaprine HCl (Cyclobenzaprine HCl) 10 Mg Tablet 10 MG PO TID for Spasms, #20 TAB Prov: KUNAL GALICIA MD 05/26/19 KUNAL GALICIA MD May 26, 2019 09:23
[2019-05-26 09:39] LABS: BILIRUBIN,URINE NEGATIVE (NEGATIVE); CLARITY,URINE CLEAR; COLOR,URINE YELLOW; GLUCOSE, URINE (UA) NEGATIVE (NEGATIVE); KETONES,URINE NEGATIVE (NEGATIVE); LEUKOCYTE ESTERASE ,URINE NEGATIVE (NEGATIVE); NITRITE,URINE NEGATIVE (NEGATIVE); PROTEIN,URINE NEGATIVE (NEGATIVE)
--- NOTE | 2019-05-26 09:39 | NUR ---
NOTIFIED OF PT REQUESTING PAIN MEDS.
[2019-05-26 09:46] LABS: BACTERIA,URINE NEGATIVE /HPF; SQUAMOUS EPITHELIAL CELL,UR 0-2 /HPF
--- NOTE | 2019-05-26 09:55 | Diagnostic Imaging Report ---
INDICATION: Fall 2 weeks ago with pain in the right shoulder. Time of exam: 9:50 AM 3 views of the right shoulder were obtained. Glenohumeral and acromioclavicular alignment are normal. Acromiohumeral space is normal. No fracture or dislocation is seen. There is some minimal spurring at the humeral head neck junction. IMPRESSION: Mild degenerative changes. No acute bony abnormality is detected. Dictated by: Dictated on workstation # [id number]
--- NOTE | 2019-05-26 09:56 | Diagnostic Imaging Report ---
INDICATION: Fall and low back pain. Time of exam: 9:51 AM 3 views lumbar spine were obtained. Curvature and alignment is normal. There is some superior and inferior endplate compression involving L2 vertebral body, age indeterminate. No retropulsion is seen. Remaining lumbar vertebrae show normal stature. Generalized degenerative disc disease with variable disc space narrowing and marginal spurring is noted. IMPRESSION: Superior and inferior endplate compression of L2 vertebral body, age indeterminate. MRI would be useful to evaluate acuity. Dictated by: Dictated on workstation # [id number]
[2019-05-26] MEDS ORDERED: KETOROLAC 60 MG/2 ML VIAL IM ONE (10:00)
[2019-05-26] MEDS ORDERED: TRAM-42 PO (10:19)
[2019-05-26] MEDS ORDERED: CYCL10TA9 PO (10:19)
[2019-05-26 10:31] VITALS: BP 133/88
== END 2019-05-26 10:31 | disposition home or self-care (01) ==
LOC: EDUNIT# 08:51 → ER 08:52
DX: S32.020A Wedge compression fracture of second lumbar vertebra, initial encounter for closed fracture (principal); M19.011 Primary osteoarthritis, right shoulder; E11.9 Type 2 diabetes mellitus without complications; F41.9 Anxiety disorder, unspecified; F31.9 Bipolar disorder, unspecified; F60.9 Personality disorder, unspecified; Z87.440 Personal history of urinary (tract) infections; Z79.84 Long term (current) use of oral hypoglycemic drugs; Z91.030 Bee allergy status; Z88.0 Allergy status to penicillin; Z77.22 Contact with and (suspected) exposure to environmental tobacco smoke (acute) (chronic); W17.89XA Other fall from one level to another, initial encounter; Y93.75 Activity, martial arts
CPT/HCPCS: 72100; 73030; 81000; 96372

== ENCOUNTER 2019-06-20 16:11 | Emergency (ER) | payer MEDICARE, MEDICAID ==
[~2019-06-20] VITALS: Ht 165 cm; Wt 82.0 kg
[~2019-06-20 16:11] MED LIST changes: +CYCL10TA9 PO; +TRAM-42 PO
[2019-06-20 16:39] VITALS: BP 97/65
== END 2019-06-20 17:18 | disposition left against medical advice (07) ==
LOC: EDUNIT# 16:11 → ER 16:12
DX: M54.9 Dorsalgia, unspecified (principal); C44.202 Unspecified malignant neoplasm of skin of right ear and external auricular canal; C44.201 Unspecified malignant neoplasm of skin of unspecified ear and external auricular canal; Z87.828 Personal history of other (healed) physical injury and trauma
CPT/HCPCS: 99281

== ENCOUNTER 2019-08-26 00:09 | Emergency (ER) | payer MEDICARE, MEDICAID ==
[~2019-08-26] VITALS: Ht 165.1 cm; Wt 84.1 kg
[~2019-08-26 00:09] MED LIST changes: -TRAZ-190; +TRAZ-227
--- OUTSIDE RECORDS SUMMARY | 2019-08-26 00:17 | XMS REPORT | Continuity of Care Document ---
Author Organization Unknown Address Unknown Phone Unavailable Allergies Active Description Code Type Severity Reaction Onset Reported/Identified Relationship to Patient Clinical Status Yes Bee Sting Kit [id number] Chente g Allergy Mild N/A 11/02/2008 Yes Penicillins [id number] Drug Aller gy Mild N/A 11/02/2008 Medications There is no data. Problems Date Dx Coded Attending Type Code Diagnosis Diagnosed By 11/06/2011 Ot 784.0 HEAD ACHE 11/22/2011 Ot 698.9 PRUR ITIC DISORDER NOS 11/22/2011 Ot 791.9 ABN URINE FINDINGS NEC 06/09/2012 Ot 346.90 RUPESH DELIA UNSPECIFIED W/O INTRACT MGRN W/ 06/09/2012 Ot 784.0 HEAD ACHE 09/04/2016 ELIAN BARAKAT MD Ot D17. 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 00 IMPETIGO, UNSPECIFIED 09/04/2016 ELIAN BARAKAT MD Ot M54. 42 LUMBAGO WITH SCIATICA, LEFT SIDE 09/04/2016 ELIAN BARAKAT MD Ot N61. 1 ABSCESS OF THE BREAST AND NIPPLE 09/05/2016 ELIAN BARAKAT MD Ot D17. 79 BENIGN LIPOMATOUS NEOPLASM OF OTHER SITE 09/05/2016 ELIAN BARAKAT MD Ot F17.210 NICOTINE DEPENDENCE, CIGARETTES, UNCOMPL 09/05/2016 ELIAN BARAKAT MD Ot L01. 00 IMPETIGO, UNSPECIFIED 09/05/2016 ELIAN BARAKAT MD Ot M54. 42 LUMBAGO WITH SCIATICA, LEFT SIDE 09/05/2016 ELIAN BARAKAT MD Ot N61. 1 ABSCESS OF THE BREAST AND NIPPLE 04/03/2017 PEGGY JOHNSON APRN Ot F31 .9 BIPOLAR DISORDER, UNSPECIFIED 04/03/2017 PEGGY JOHNSON LIBRARY HISTORIAN Ot F41 .9 ANXIETY DISORDER, UNSPECIFIED 04/03/2017 PEGGY JOHNSON LIBRARY HISTORIAN Ot M79.675 PAIN IN LEFT TOE(S) 04/03/2017 PEGGY JOHNSON LIBRARY HISTORIAN Ot S92.515A NONDISP FX OF PROXIMAL PHALANX OF LEFT L 04/03/2017 PEGGY JOHNSON LIBRARY HISTORIAN Ot W13.8XXA FALL FROM, OUT OF OR THROUGH [facility] 06/08/2017 BRITTANY PINEDO, RACHAEL Lee Ot E11.9 TYPE 2 DIABETES MELLITUS WITHOUT COMPLIC 06/08/2017 RACHAEL SOTO MD Ot F31.9 BIPOLAR DISORDER, UNSPECIFIED 06/08/2017 RACHAEL SOTO MD Ot F41.9 ANXIETY DISORDER, UNSPECIFIED 06/08/2017 RACHAEL SOTO MD Ot F60.9 PERSONALITY DISORDER, UNSPECIFIED 06/08/2017 RACHAEL SOTO MD Ot J18.1 LOBAR PNEUMONIA, UNSPECIFIED ORGANISM 06/08/2017 RACHAEL SOTO MD Ot R05 COUGH 06/08/2017 RACHAEL SOTO MD Ot R10.32 LEFT LOWER QUADRANT PAIN 06/08/2017 RACHAEL SOTO MD Ot Z77.22 CNTCT W AND EXPSR TO ENVIRON TOBACCO SMO 06/08/2017 RACHAEL SOTO MD Ot Z79.84 SEAMSTRESS FITTER (CURRENT) USE OF ORAL HYPOGLYC 06/10/2017 RACHAEL SOTO MD Ot E11.9 TYPE 2 DIABETES MELLITUS WITHOUT COMPLIC 06/10/2017 RACHAEL SOTO MD Ot F31.9 BIPOLAR DISORDER, UNSPECIFIED 06/10/2017 RACHAEL SOTO MD Ot F41.9 ANXIETY DISORDER, UNSPECIFIED 06/10/2017 RACHAEL SOTO MD Ot F60.9 PERSONALITY DISORDER, UNSPECIFIED 06/10/2017 RACHAEL SOTO MD Ot J18.1 LOBAR PNEUMONIA, UNSPECIFIED ORGANISM 06/10/2017 RACHAEL SOTO MD Ot R05 COUGH 06/10/2017 RACHAEL SOTO MD Ot R10.32 LEFT LOWER QUADRANT PAIN 06/10/2017 BRITTANY PINEDO, RACHAEL Lee Ot Z77.22 CNTCT W AND EXPSR TO ENVIRON TOBACCO SMO 06/10/2017 BRITTANY PINEDO, RACHAEL Lee Ot Z79.84 SEAMSTRESS FITTER (CURRENT) USE OF ORAL HYPOGLYC 06/27/2017 FENECH DO, MONA S Ot Z12.31 ENCNTR SCREEN MAMMOGRAM FOR MALIGNANT NE 06/30/2017 FENECH DO, MONA S Ot Z12.31 ENCNTR SCREEN MAMMOGRAM FOR MALIGNANT NE 07/01/2017 FENECH DO, MONA S Ot R10.2 PELVIC AND PERINEAL PAIN 07/01/2017 FENECH DO, MONA S Ot Z12.31 ENCNTR SCREEN MAMMOGRAM FOR MALIGNANT NE 07/06/2017 FENECH DO, MONA S Ot R10.2 PELVIC AND PERINEAL PAIN 07/06/2017 FENECH DO, MONA S Ot Z12.31 ENCNTR SCREEN MAMMOGRAM FOR MALIGNANT NE 07/22/2017 FENECH DO, MONA S Ot R10.2 PELVIC AND PERINEAL PAIN 07/22/2017 FENECH DO, MONA S Ot Z12.31 ENCNTR SCREEN MAMMOGRAM FOR MALIGNANT NE 08/01/2017 FENECH DO, MONA S Ot R10.2 PELVIC AND PERINEAL PAIN 08/01/2017 FENECH DO, MONA S Ot Z12.31 ENCNTR SCREEN MAMMOGRAM FOR MALIGNANT NE 04/25/2018 NAT CHARLES MD Ot E11 .9 TYPE 2 DIABETES MELLITUS WITHOUT COMPLIC 04/25/2018 NAT CHARLES MD Ot F17.210 NICOTINE DEPENDENCE, CIGARETTES, UNCOMPL 04/25/2018 NAT CHARLES MD Ot F31 .9 BIPOLAR DISORDER, UNSPECIFIED 04/25/2018 NAT CHARLES MD Ot F41 .9 ANXIETY DISORDER, UNSPECIFIED 04/25/2018 NAT CHARLES MD Ot J06 .9 ACUTE UPPER RESPIRATORY INFECTION, UNSPE 04/25/2018 NAT CHARLES MD Ot R05 COUGH 04/25/2018 NAT CHARLES MD Ot Z87.440 PERSONAL HISTORY OF URINARY (TRACT) INFE 04/25/2018 NAT CHARLES MD Ot Z88 .0 ALLERGY STATUS TO PENICILLIN 05/20/2018 NAT CHARLES MD Ot E11 .9 TYPE 2 DIABETES MELLITUS WITHOUT COMPLIC 05/20/2018 NAT CHARLES MD Ot F17.210 NICOTINE DEPENDENCE, CIGARETTES, UNCOMPL 05/20/2018 NAT CHARLES MD Ot F31 .9 BIPOLAR DISORDER, UNSPECIFIED 05/20/2018 NAT CHARLES MD Ot F41 .9 ANXIETY DISORDER, UNSPECIFIED 05/20/2018 NAT CHARLES MD Ot J06 .9 ACUTE UPPER RESPIRATORY INFECTION, UNSPE 05/20/2018 ODNAT EM MD Ot R05 COUGH 05/20/2018 NAT CHARLES MD Ot Z87.440 PERSONAL HISTORY OF URINARY (TRACT) INFE 05/20/2018 NAT CHARLES MD Ot Z88 .0 ALLERGY STATUS TO PENICILLIN 05/20/2018 NAT CHARLES MD Ot E11 .9 TYPE 2 DIABETES MELLITUS WITHOUT COMPLIC 05/20/2018 NAT CHARLES MD Ot F17.210 NICOTINE DEPENDENCE, CIGARETTES, UNCOMPL 05/20/2018 NAT CHARLES MD Ot F31 .9 BIPOLAR DISORDER, UNSPECIFIED 05/20/2018 NAT CHARLES MD Ot F41 .9 ANXIETY DISORDER, UNSPECIFIED 05/20/2018 NAT CHARLES MD Ot J06 .9 ACUTE UPPER RESPIRATORY INFECTION, UNSPE 05/20/2018 ODNAT EM MD Ot R05 COUGH 05/20/2018 NAT CHARLES MD Ot Z87.440 PERSONAL HISTORY OF URINARY (TRACT) INFE 05/20/2018 NAT CHARLES MD Ot Z88 .0 ALLERGY STATUS TO PENICILLIN 05/30/2018 FENMONA PETERSON DO S Ot R10.2 PELVIC AND PERINEAL PAIN 05/30/2018 MONA ANDRADE DO S Ot Z12.31 ENCNTR SCREEN MAMMOGRAM FOR MALIGNANT NE 11/04/2018 FENNICHOLAS OJEDA MONA S Ot R10.2 PELVIC AND PERINEAL PAIN 11/04/2018 FENECH MONA OJEDA S Ot Z12.31 ENCNTR SCREEN MAMMOGRAM FOR MALIGNANT NE 11/04/2018 MARVIN AHUMADAP Ot E11.9 TYPE 2 DIABETES MELLITUS WITHOUT COMPLIC 11/04/2018 MARVIN AHUMADAP Ot F17.210 NICOTINE DEPENDENCE, CIGARETTES, UNCOMPL 11/04/2018 MARVIN AHUMADAP Ot F31.9 BIPOLAR DISORDER, UNSPECIFIED 11/04/2018 ZITA, MARVIN MULTI PURPOSE MACHINE OPERATOR Ot F41.9 ANXIETY DISORDER, UNSPECIFIED 11/04/2018 ZITA, MARVIN MULTI PURPOSE MACHINE OPERATOR Ot F60.9 PERSONALITY DISORDER, UNSPECIFIED 11/04/2018 ZITA, MARVIN MULTI PURPOSE MACHINE OPERATOR Ot L73.9 FOLLICULAR DISORDER, UNSPECIFIED 11/04/2018 ZITA, MARVIN MULTI PURPOSE MACHINE OPERATOR Ot R22.0 LOCALIZED SWELLING, MASS AND LUMP, HEAD 11/04/2018 ZITA, MARVIN MULTI PURPOSE MACHINE OPERATOR Ot R51 HEADACHE 11/04/2018 ZITA, MARVIN MULTI PURPOSE MACHINE OPERATOR Ot Z87.440 PERSONAL HISTORY OF URINARY (TRACT) INFE 11/04/2018 ZITA, MARVIN MULTI PURPOSE MACHINE OPERATOR Ot Z88.0 ALLERGY STATUS TO PENICILLIN 11/06/2018 ZITA, MARVIN MULTI PURPOSE MACHINE OPERATOR Ot E11.9 TYPE 2 DIABETES MELLITUS WITHOUT COMPLIC 11/06/2018 ZITA, MARVIN MULTI PURPOSE MACHINE OPERATOR Ot F17.210 NICOTINE DEPENDENCE, CIGARETTES, UNCOMPL 11/06/2018 ZITA, MARVIN MULTI PURPOSE MACHINE OPERATOR Ot F31.9 BIPOLAR DISORDER, UNSPECIFIED 11/06/2018 ZITA, MARVIN MULTI PURPOSE MACHINE OPERATOR Ot F41.9 ANXIETY DISORDER, UNSPECIFIED 11/06/2018 ZITA, MARVIN MULTI PURPOSE MACHINE OPERATOR Ot F60.9 PERSONALITY DISORDER, UNSPECIFIED 11/06/2018 ZITA, MARVIN MULTI PURPOSE MACHINE OPERATOR Ot L73.9 FOLLICULAR DISORDER, UNSPECIFIED 11/06/2018 ZITA, MARVIN MULTI PURPOSE MACHINE OPERATOR Ot R22.0 LOCALIZED SWELLING, MASS AND LUMP, HEAD 11/06/2018 ZITA, MARVIN MULTI PURPOSE MACHINE OPERATOR Ot R51 HEADACHE 11/06/2018 ZITA, MARIVN MULTI PURPOSE MACHINE OPERATOR Ot Z87.440 PERSONAL HISTORY OF URINARY (TRACT) INFE 11/06/2018 ZITA, MARVIN MULTI PURPOSE MACHINE OPERATOR Ot Z88.0 ALLERGY STATUS TO PENICILLIN 11/10/2018 ZITA, MARVIN MULTI PURPOSE MACHINE OPERATOR Ot E11.9 TYPE 2 DIABETES MELLITUS WITHOUT COMPLIC 11/10/2018 ZITA, MARVIN MULTI PURPOSE MACHINE OPERATOR Ot F17.210 NICOTINE DEPENDENCE, CIGARETTES, UNCOMPL 11/10/2018 ZITA, MARVIN MULTI PURPOSE MACHINE OPERATOR Ot F31.9 BIPOLAR DISORDER, UNSPECIFIED 11/10/2018 ZITA, MARVIN MULTI PURPOSE MACHINE OPERATOR Ot F41.9 ANXIETY DISORDER, UNSPECIFIED 11/10/2018 ZITA, MARVIN MULTI PURPOSE MACHINE OPERATOR Ot F60.9 PERSONALITY DISORDER, UNSPECIFIED 11/10/2018 ZITA, MARVIN MULTI PURPOSE MACHINE OPERATOR Ot L73.9 FOLLICULAR DISORDER, UNSPECIFIED 11/10/2018 ZITA, MARVIN MULTI PURPOSE MACHINE OPERATOR Ot R22.0 LOCALIZED SWELLING, MASS AND LUMP, HEAD 11/10/2018 ZITA MARVIN JARRELL Ot R51 HEADACHE 11/10/2018 ZITA MARVIN WESLY Ot Z87.440 PERSONAL HISTORY OF URINARY (TRACT) INFE 11/10/2018 MARVIN AHUMADA WESLY Ot Z88.0 ALLERGY STATUS TO PENICILLIN 11/23/2018 BRITTANY PINEDO, RACHAEL Lee Ot E11.9 TYPE 2 DIABETES MELLITUS WITHOUT COMPLIC 11/23/2018 RACHAEL SOTO MD Ot F12.10 CANNABIS ABUSE, UNCOMPLICATED 11/23/2018 BRITTANY PINEDO, RACHAEL Lee Ot F14.10 COCAINE ABUSE, UNCOMPLICATED 11/23/2018 RACHAEL SOTO MD Ot F17.210 NICOTINE DEPENDENCE, CIGARETTES, UNCOMPL 11/23/2018 RACHAEL SOTO MD Ot F31.9 BIPOLAR DISORDER, UNSPECIFIED 11/23/2018 RACHAEL SOTO MD Ot F60.9 PERSONALITY DISORDER, UNSPECIFIED 11/23/2018 RACHAEL SOTO MD Ot R45.851 SUICIDAL IDEATIONS 11/23/2018 RACHAEL SOTO MD Ot T14.8XXA OTHER INJURY OF UNSPECIFIED BODY REGION, 11/23/2018 RACHAEL SOTO MD Ot W57.XXXA BIT/STUNG BY NONVENOM INSECT OTH NONVE 11/23/2018 RACHAEL SOTO MD Ot Z59.0 HOMELESSNESS 11/23/2018 RACHAEL SOTO MD, Ot Z87.440 PERSONAL HISTORY OF URINARY (TRACT) INFE 11/23/2018 RACHAEL SOTO MD Ot Z88.0 ALLERGY STATUS TO PENICILLIN 11/23/2018 RACHAEL SOTO MD Ot Z91.030 BEE ALLERGY STATUS 11/23/2018 FENECH DO MONA S Ot R10.2 PELVIC AND PERINEAL PAIN 11/23/2018 AMARILISECH MONA OJEDA S Ot Z12.31 ENCNTR SCREEN MAMMOGRAM FOR MALIGNANT NE 11/24/2018 AMARILISECH DO MONA S Ot R10.2 PELVIC AND PERINEAL PAIN 11/24/2018 FENECH MONA OJEDA S Ot Z12.31 ENCNTR SCREEN MAMMOGRAM FOR MALIGNANT NE 11/28/2018 RACHAEL SOTO MD Ot E11.9 TYPE 2 DIABETES MELLITUS WITHOUT COMPLIC 11/28/2018 RACHAEL SOTO MD Ot F12.10 CANNABIS ABUSE, UNCOMPLICATED 11/28/2018 RACHAEL SOTO MD Ot F14.10 COCAINE ABUSE, UNCOMPLICATED 11/28/2018 RACHAEL SOTO MD Ot F17.210 NICOTINE DEPENDENCE, CIGARETTES, UNCOMPL 11/28/2018 RACHAEL SOTO MD Ot F31.9 BIPOLAR DISORDER, UNSPECIFIED 11/28/2018 RACHAEL SOTO MD Ot F60.9 PERSONALITY DISORDER, UNSPECIFIED 11/28/2018 RACHAEL SOTO MD Ot R45.851 SUICIDAL IDEATIONS 11/28/2018 RACHAEL SOTO MD, Ot T14.8XXA OTHER INJURY OF UNSPECIFIED BODY REGION, 11/28/2018 RACHAEL SOTO MD Ot W57.XXXA BIT/STUNG BY NONVENOM INSECT OTH NONVE 11/28/2018 RACHAEL SOTO MD Ot Z59.0 HOMELESSNESS 11/28/2018 RACHAEL SOTO MD Ot Z87.440 PERSONAL HISTORY OF URINARY (TRACT) INFE 11/28/2018 RACHAEL SOTO MD Ot Z88.0 ALLERGY STATUS TO PENICILLIN 11/28/2018 RACHAEL SOTO MD Ot Z91.030 BEE ALLERGY STATUS 05/06/2019 ELIAN BARAKAT MD Ot E11. 9 TYPE 2 DIABETES MELLITUS WITHOUT COMPLIC 05/06/2019 ELIAN BARAKAT MD Ot F17.210 NICOTINE DEPENDENCE, CIGARETTES, UNCOMPL 05/06/2019 ELIAN BARAKAT MD Ot F31. 9 BIPOLAR DISORDER, UNSPECIFIED 05/06/2019 ELIAN BARAKAT MD Ot F41. 9 ANXIETY DISORDER, UNSPECIFIED 05/06/2019 ELIAN BARAKAT MD Ot F60. 9 PERSONALITY DISORDER, UNSPECIFIED 05/06/2019 ELIAN BARAKAT MD Ot H61. 91 DISORDER OF RIGHT EXTERNAL EAR, UNSPECIF 05/06/2019 ELIAN BARAKAT MD Ot N61. 1 ABSCESS OF THE BREAST AND NIPPLE 05/06/2019 ELIAN BARAKAT MD Ot Z79. 84 SEAMSTRESS FITTER (CURRENT) USE OF ORAL HYPOGLYC 05/06/2019 ELIAN BARAKAT MD Ot Z87.440 PERSONAL HISTORY OF URINARY (TRACT) INFE 05/06/2019 ELIAN BARAKAT MD Ot Z88. 0 ALLERGY STATUS TO PENICILLIN 05/06/2019 FENECH DO, MONA S Ot R10.2 PELVIC AND PERINEAL PAIN 05/06/2019 FENECH DO, MONA S Ot Z12.31 ENCNTR SCREEN MAMMOGRAM FOR MALIGNANT NE 05/16/2019 FENECH DO, MONA S Ot R10.2 PELVIC AND PERINEAL PAIN 05/16/2019 FENECH DO, MONA S Ot Z12.31 ENCNTR SCREEN MAMMOGRAM FOR MALIGNANT NE 05/26/2019 FRIDA PINEDO, KUNAL Garner Ot E11. 9 TYPE 2 DIABETES MELLITUS WITHOUT COMPLIC 05/26/2019 FRIDA PINEDO, KUNAL Garner Ot F31. 9 BIPOLAR DISORDER, UNSPECIFIED 05/26/2019 FRIDA PINEDO, KUNAL Garner Ot F41. 9 ANXIETY DISORDER, UNSPECIFIED 05/26/2019 FRIDA PINEDO, KUNAL Garner Ot F60. 9 PERSONALITY DISORDER, UNSPECIFIED 05/26/2019 FRIDA PINEDO, KUNAL Garner Ot M19.011 PRIMARY OSTEOARTHRITIS, RIGHT SHOULDER 05/26/2019 FRIDA PINEDO, KUNAL Garner Ot M54. 5 LOW BACK PAIN 05/26/2019 FRIDA PINEDO, KUNAL Garner Ot S32.020A WEDGE COMPRESSION FRACTURE OF SECOND LUM 05/26/2019 FRIDA PINEDO, KUNAL Garner Ot W17.89XA OTHER FALL FROM ONE LEVEL TO ANOTHER, IN 05/26/2019 FRIDA PINEDO, KUNAL Garner Ot Y93. 75 ACTIVITY, MARTIAL ARTS 05/26/2019 FRIDA PINEDO, KUNAL Garner Ot Z77. 22 CNTCT W AND EXPSR TO ENVIRON TOBACCO SMO 05/26/2019 KUNAL GALICIA MD Ot Z79. 84 SEAMSTRESS FITTER (CURRENT) USE OF ORAL HYPOGLYC 05/26/2019 KUNAL GALICIA MD Ot Z87.440 PERSONAL HISTORY OF URINARY (TRACT) INFE 05/26/2019 KUNAL GALICIA MD Ot Z88. 0 ALLERGY STATUS TO PENICILLIN 05/26/2019 KUNAL GALICIA MD Ot Z91.030 BEE ALLERGY STATUS 06/01/2019 KUNAL GALICIA MD Ot E11. 9 TYPE 2 DIABETES MELLITUS WITHOUT COMPLIC 06/01/2019 FRIDA PINEDO, KUNAL Patsy Ot F31. 9 BIPOLAR DISORDER, UNSPECIFIED 06/01/2019 FRIDA PINEDO, KUNAL Patsy Ot F41. 9 ANXIETY DISORDER, UNSPECIFIED 06/01/2019 FRIDA PINEDO, KUNAL Garner Ot F60. 9 PERSONALITY DISORDER, UNSPECIFIED 06/01/2019 FRIDA PINEDO, KUNAL Garner Ot M19.011 PRIMARY OSTEOARTHRITIS, RIGHT SHOULDER 06/01/2019 FRIDA PINEDO, KUNAL Garner Ot M54. 5 LOW BACK PAIN 06/01/2019 FRIDA PINEDO, KUNAL Garner Ot S32.020A WEDGE COMPRESSION FRACTURE OF SECOND LUM 06/01/2019 FRIDA PINEDO, KUNAL Patsy Ot W17.89XA OTHER FALL FROM ONE LEVEL TO ANOTHER, IN 06/01/2019 KUNAL GALICIA MD Ot Y93. 75 ACTIVITY, MARTIAL ARTS 06/01/2019 FRIDA PINEDO, KUNAL Patsy Ot Z77. 22 CNTCT W AND EXPSR TO ENVIRON TOBACCO SMO 06/01/2019 FRIDA PINEDO, KUNAL Garner Ot Z79. 84 SENIOR CARE (CURRENT) USE OF ORAL HYPOGLYC 06/01/2019 FRIDA PINEDO, KUNAL Patsy Ot Z87.440 PERSONAL HISTORY OF URINARY (TRACT) INFE 06/01/2019 FRIDA PINEDO, KUNAL Patsy Ot Z88. 0 ALLERGY STATUS TO PENICILLIN 06/01/2019 KUNAL GALICIA MD Ot Z91.030 BEE ALLERGY STATUS Procedures There is no data. Results Test Result Range LIPID PANEL - 02/27/17 12:04 Cholesterol, Total 195 mg/dL 100-199 Triglycerides 242 mg/dL 0-149 HDL Cholesterol 35 mg/dL >39 VLDL Cholesterol Andres 48 mg/dL 5-40 LDL Cholesterol Calc 112 mg/dL 0-99 Comment: NRG Complete urinalysis with reflex to cultu re - 06/08/17 21:30 Urine color determination YELLOW NRG Urine clarity determination CLEAR NR G Urine pH measurement by test strip 7 5-9 Specific gravity of urine by test strip 1.010 1.016-1.022 Urine protein assay by test strip, semi-quantitative NEGATIVE NEGATIVE Urine glucose detection by automated test strip NE GATIVE NEGATIVE Erythrocytes detection in urine sediment by light micr oscopy NEGATIVE NEGATIVE Urine ketones detection by automated test strip NE GATIVE NEGATIVE Urine nitrite detection by test strip NEGATIVE NEGATIVE Urine total bilirubin detection by test strip NEGA TIVE NEGATIVE Urine urobilinogen measurement by automated test strip (mass/volume) NORMAL NORMAL Urine leukocyte esterase detection by dipstick 1+ NEGATIVE Automated urine sediment erythrocyte cou nt by microscopy (number/high power field) NONE NRG Automated urine sediment leukocyte count by microscopy (number/high power field) RARE NRG Bacteria detection in urine sediment by light microsco py NEGATIVE NRG Squamous epithelial cells detection in u rine sediment by light microscopy 0-2 NRG Crystals detection in urine sediment by light microsco py NONE NRG Casts detection in urine sediment by light microscopy NONE NRG Mucus detection in urine sediment by light microscopy NEGATIVE NRG Complete urinalysis with reflex to culture NO NRG Influenza virus A and B antigen detectio n - 06/08/17 21:30 FLU RESULT NEGATIVE FOR INFLUENZA A AND B ANTIGENS BY IA NRG Complete blood count (CBC) with automate d white blood cell (WBC) differential - 06/08/17 21:58 Blood leukocytes automated count (number/volume) 12.9 10*3/uL 4.3-11.0 Blood erythrocytes automated count (number/volume) 4.62 10*6/uL 4.35-5.85 Venous blood hemoglobin measurement (mass/volume) 14.9 g/dL 11.5-16.0 Blood hematocrit (volume fraction) 42 % 35-52 Automated erythrocyte mean corpuscular volume 92 [ foz_us] 80-99 Automated erythrocyte mean corpuscular h emoglobin (mass per erythrocyte) 32 pg 25-34 Automated erythrocyte mean corpuscular h emoglobin concentration measurement (mass/volume) 35 g/dL 32-36 Automated erythrocyte distribution width ratio 13. 8 % 10.0- 14.5 Automated blood platelet count (count/volume) 302 10*3/uL 130-400 Automated blood platelet mean volume measurement 9.8 [foz_us] 7.4-10.4 Automated blood neutrophils/100 leukocytes 63 % 42-75 Automated blood lymphocytes/100 leukocytes 29 % 12-44 Blood monocytes/100 leukocytes 7 % 0-12 Automated blood eosinophils/100 leukocytes 2 % 0-10 Automated blood basophils/100 leukocytes 0 % 0-10 Blood neutrophils automated count (number/volume) 8.1 10*3 1.8-7.8 Blood lymphocytes automated count (number/volume) 3.7 10*3 1.0-4.0 Blood monocytes automated count (number/volume) 0. 9 10*3 0.0-1.0 Automated eosinophil count 0.3 10*3/uL 0 .0-0.3 Automated blood basophil count (count/volume) 0.0 10*3/uL 0.0-0.1 Comprehensive metabolic panel - 06/08/17 21:58 Serum or plasma sodium measurement (moles/volume) 138 mmol/L 135-145 Serum or plasma potassium measurement (moles/volume) 4.1 mmol/L 3.6-5.0 Serum or plasma chloride measurement (moles/volume) 105 mmol/L 98-107 Carbon dioxide 20 mmol/L 21-32 Serum or plasma anion gap determination (moles/volume) 13 mmol/L 5-14 Serum or plasma urea nitrogen measurement (mass/volume ) 11 mg/dL 7-18 Serum or plasma creatinine measurement (mass/volume) 0.87 mg/dL 0.60-1.30 Serum or plasma urea nitrogen/creatinine mass ratio 13 NRG Serum or plasma creatinine measurement w ith calculation of estimated glomerular filtration rate > NRG Serum or plasma glucose measurement (mass/volume) 104 mg/dL 70-105 Serum or plasma calcium measurement (mass/volume) 9.3 mg/dL 8.5-10.1 Serum or plasma total bilirubin measurement (mass/volu me) 0.2 mg/dL 0.1-1.0 Serum or plasma alkaline phosphatase emmanuel surement (enzymatic activity/volume) 77 U/L 40-136 Serum or plasma aspartate aminotransfera se measurement (enzymatic activity/volume) 16 U/L 5-34 Serum or plasma alanine aminotransferase measurement (enzymatic activity/volume) 23 U/L 0-55 Serum or plasma protein measurement (mass/volume) 7.3 g/dL 6.4-8.2 Serum or plasma albumin measurement (mass/volume) 3.9 g/dL 3.2-4.5 THYROID ANALYZER - 06/10/17 14:50 TSH 1.71 mIU/L 0.40-4.50 A1C - 06/10/17 14:50 HEMOGLOBIN A1c 5.7 % of total Hgb <5.7 Complete blood count (CBC) with automate d white blood cell (WBC) differential - 04/25/18 12:34 Blood leukocytes automated count (number/volume) 9.6 10*3/uL 4.3-11.0 Blood erythrocytes automated count (number/volume) 4.86 10*6/uL 4.35-5.85 Venous blood hemoglobin measurement (mass/volume) 15.0 g/dL 11.5-16.0 Blood hematocrit (volume fraction) 45 % 35-52 Automated erythrocyte mean corpuscular volume 93 [ foz_us] 80-99 Automated erythrocyte mean corpuscular h emoglobin (mass per erythrocyte) 31 pg 25-34 Automated erythrocyte mean corpuscular h emoglobin concentration measurement (mass/volume) 33 g/dL 32-36 Automated erythrocyte distribution width ratio 13. 2 % 10.0- 14.5 Automated blood platelet count (count/volume) 341 10*3/uL 130-400 Automated blood platelet mean volume measurement 9.3 [foz_us] 7.4-10.4 Automated blood neutrophils/100 leukocytes 67 % 42-75 Automated blood lymphocytes/100 leukocytes 23 % 12-44 Blood monocytes/100 leukocytes 9 % 0-12 Automated blood eosinophils/100 leukocytes 2 % 0-10 Automated blood basophils/100 leukocytes 0 % 0-10 Blood neutrophils automated count (number/volume) 6.4 10*3 1.8-7.8 Blood lymphocytes automated count (number/volume) 2.2 10*3 1.0-4.0 Blood monocytes automated count (number/volume) 0. 8 10*3 0.0-1.0 Automated eosinophil count 0.2 10*3/uL 0 .0-0.3 Automated blood basophil count (count/volume) 0.0 10*3/uL 0.0-0.1 Streptococcus pyogenes antigen detection - 04/25/18 12:34 Streptococcus pyogenes antigen detection NEGATIVE NEGATIVE Influenza virus A and B antigen detectio n - 04/25/18 12:34 FLU RESULT NEGATIVE FOR INFLUENZA A AND B ANTIGENS BY IA NRG Comprehensive metabolic panel - 04/25/18 12:34 Serum or plasma sodium measurement (moles/volume) 139 mmol/L 135-145 Serum or plasma potassium measurement (moles/volume) 4.5 mmol/L 3.6-5.0 Serum or plasma chloride measurement (moles/volume) 105 mmol/L 98-107 Carbon dioxide 25 mmol/L 21-32 Serum or plasma anion gap determination (moles/volume) 9 mmol/L 5-14 Serum or plasma urea nitrogen measurement (mass/volume ) 11 mg/dL 7-18 Serum or plasma creatinine measurement (mass/volume) 0.81 mg/dL 0.60-1.30 Serum or plasma urea nitrogen/creatinine mass ratio 14 NRG Serum or plasma creatinine measurement w ith calculation of estimated glomerular filtration rate > NRG Serum or plasma glucose measurement (mass/volume) 74 mg/dL 70-105 Serum or plasma calcium measurement (mass/volume) 10.0 mg/dL 8.5-10.1 Serum or plasma total bilirubin measurement (mass/volu me) 0.3 mg/dL 0.1-1.0 Serum or plasma alkaline phosphatase emmanuel surement (enzymatic activity/volume) 76 U/L 40-136 Serum or plasma aspartate aminotransfera se measurement (enzymatic activity/volume) 17 U/L 5-34 Serum or plasma alanine aminotransferase measurement (enzymatic activity/volume) 18 U/L 0-55 Serum or plasma protein measurement (mass/volume) 7.5 g/dL 6.4-8.2 Serum or plasma albumin measurement (mass/volume) 4.2 g/dL 3.2-4.5 CALCIUM CORRECTED 9.8 mg/dL 8.5-10.1 Bacterial throat culture - 04/25/18 12:3 4 Bacterial throat culture NBS NRG Complete urinalysis with reflex to cultu re - 11/22/18 23:01 Urine color determination YELLOW NRG Urine clarity determination CLEAR NR G Urine pH measurement by test strip 6 5-9 Specific gravity of urine by test strip 1.020 1.016-1.022 Urine protein assay by test strip, semi-quantitative 2+ NEGATIVE Urine glucose detection by automated test strip NE GATIVE NEGATIVE Erythrocytes detection in urine sediment by light micr oscopy NEGATIVE NEGATIVE Urine ketones detection by automated test strip NE GATIVE NEGATIVE Urine nitrite detection by test strip NEGATIVE NEGATIVE Urine total bilirubin detection by test strip NEGA TIVE NEGATIVE Urine urobilinogen measurement by automated test strip (mass/volume) 1 mg/dL NORMAL Urine leukocyte esterase detection by dipstick 2+ NEGATIVE Automated urine sediment erythrocyte cou nt by microscopy (number/high power field) NONE NRG Automated urine sediment leukocyte count by microscopy (number/high power field) [HPF] NRG Bacteria detection in urine sediment by light microsco py FEW NRG Squamous epithelial cells detection in u rine sediment by light microscopy 2-5 NRG Crystals detection in urine sediment by light microsco py NONE NRG Casts detection in urine sediment by light microscopy PRESENT NRG Mucus detection in urine sediment by light microscopy SMALL NRG Complete urinalysis with reflex to culture NO NRG Hyaline casts detection in urine sediment by light scar roscopy 0-2 NRG Urine drug screening test - 11/22/18 23: 01 Urine phencyclidine detection by screening method NEGATIVE NEGATIVE Urine benzodiazepines detection by screening method NEGATIVE NEGATIVE Urine cocaine detection NEGATIVE NEGATI VE Urine amphetamines detection by screening method P OSITIVE NEGATIVE Urine methamphetamine detection by screening method POSITIVE NEGATIVE Urine cannabinoids detection by screening method N EGATIVE NEGATIVE Urine opiates detection by screening method NEGATI VE NEGATIVE Urine barbiturates detection NEGATIVE N EGATIVE Screening urine tricyclic antidepressants detection NEGATIVE NEGATIVE Urine methadone detection by screening method NEGA TIVE NEGATIVE Urine oxycodone detection NEGATIVE NEGA TIVE Urine propoxyphene detection NEGATIVE N EGATIVE Complete blood count (CBC) with automate d white blood cell (WBC) differential - 11/23/18 00:08 Blood leukocytes automated count (number/volume) 9.0 10*3/uL 4.3-11.0 Blood erythrocytes automated count (number/volume) 4.34 10*6/uL 4.35-5.85 Venous blood hemoglobin measurement (mass/volume) 13.5 g/dL 11.5-16.0 Blood hematocrit (volume fraction) 40 % 35-52 Automated erythrocyte mean corpuscular volume 92 [ foz_us] 80-99 Automated erythrocyte mean corpuscular h emoglobin (mass per erythrocyte) 31 pg 25-34 Automated erythrocyte mean corpuscular h emoglobin concentration measurement (mass/volume) 34 g/dL 32-36 Automated erythrocyte distribution width ratio 13. 5 % 10.0- 14.5 Automated blood platelet count (count/volume) 330 10*3/uL 130-400 Automated blood platelet mean volume measurement 9.7 [foz_us] 7.4-10.4 Automated blood neutrophils/100 leukocytes 65 % 42-75 Automated blood lymphocytes/100 leukocytes 24 % 12-44 Blood monocytes/100 leukocytes 8 % 0-12 Automated blood eosinophils/100 leukocytes 3 % 0-10 Automated blood basophils/100 leukocytes 0 % 0-10 Blood neutrophils automated count (number/volume) 5.9 10*3 1.8-7.8 Blood lymphocytes automated count (number/volume) 2.2 10*3 1.0-4.0 Blood monocytes automated count (number/volume) 0. 7 10*3 0.0-1.0 Automated eosinophil count 0.2 10*3/uL 0 .0-0.3 Automated blood basophil count (count/volume) 0.0 10*3/uL 0.0-0.1 Comprehensive metabolic panel - 11/23/18 00:08 Serum or plasma sodium measurement (moles/volume) 139 mmol/L 135-145 Serum or plasma potassium measurement (moles/volume) 3.2 mmol/L 3.6-5.0 Serum or plasma chloride measurement (moles/volume) 106 mmol/L 98-107 Carbon dioxide 23 mmol/L 21-32 Serum or plasma anion gap determination (moles/volume) 10 mmol/L 5-14 Serum or plasma urea nitrogen measurement (mass/volume ) 6 mg/dL 7-18 Serum or plasma creatinine measurement (mass/volume) 0.83 mg/dL 0.60-1.30 Serum or plasma urea nitrogen/creatinine mass ratio 7 NRG Serum or plasma creatinine measurement w ith calculation of estimated glomerular filtration rate > NRG Serum or plasma glucose measurement (mass/volume) 161 mg/dL 70-105 Serum or plasma calcium measurement (mass/volume) 9.4 mg/dL 8.5-10.1 Serum or plasma total bilirubin measurement (mass/volu me) 0.5 mg/dL 0.1-1.0 Serum or plasma alkaline phosphatase emmanuel surement (enzymatic activity/volume) 75 U/L 40-136 Serum or plasma aspartate aminotransfera se measurement (enzymatic activity/volume) 20 U/L 5-34 Serum or plasma alanine aminotransferase measurement (enzymatic activity/volume) 20 U/L 0-55 Serum or plasma protein measurement (mass/volume) 6.5 g/dL 6.4-8.2 Serum or plasma albumin measurement (mass/volume) 3.9 g/dL 3.2-4.5 CALCIUM CORRECTED 9.5 mg/dL 8.5-10.1 Serum or plasma salicylates measurement (mass/volume) - 11/23/18 00:08 Serum or plasma salicylates measurement (mass/volume) < mg/dL 5.0-20.0 Serum or plasma acetaminophen measuremen t (mass/volume) - 11/23/18 00:08 Serum or plasma acetaminophen measurement (mass/volume ) < ug/mL 10-30 Serum or plasma ethanol measurement (mas s/volume) - 11/23/18 00:08 Serum or plasma ethanol measurement (mass/volume) < mg/dL <10 Serum or plasma thyrotropin measurement by detection limit <=0.05 miu/l (units/volume) - 11/23/18 00:08 Serum or plasma thyrotropin measurement by detection limit <=0.05 miu/l (units/volume) 1.10 u[iU]/mL 0.35-4.94 Complete urinalysis with reflex to cultu re - 05/26/19 09:25 Urine color determination YELLOW NRG Urine clarity determination CLEAR NR G Urine pH measurement by test strip 7.0 5-9 Specific gravity of urine by test strip 1.020 1.016-1.022 Urine protein assay by test strip, semi-quantitative NEGATIVE NEGATIVE Urine glucose detection by automated test strip NE GATIVE NEGATIVE Erythrocytes detection in urine sediment by light micr oscopy NEGATIVE NEGATIVE Urine ketones detection by automated test strip NE GATIVE NEGATIVE Urine nitrite detection by test strip NEGATIVE NEGATIVE Urine total bilirubin detection by test strip NEGA TIVE NEGATIVE Urine urobilinogen measurement by automated test strip (mass/volume) 0.2 mg/dL < = 1.0 Urine leukocyte esterase detection by dipstick NEG ATIVE NEGATIVE Automated urine sediment erythrocyte cou nt by microscopy (number/high power field) NONE NRG Automated urine sediment leukocyte count by microscopy (number/high power field) NONE NRG Bacteria detection in urine sediment by light microsco py NEGATIVE NRG Squamous epithelial cells detection in u rine sediment by light microscopy 0-2 NRG Crystals detection in urine sediment by light microsco py NONE NRG Casts detection in urine sediment by light microscopy NONE NRG Mucus detection in urine sediment by light microscopy NEGATIVE NRG Complete urinalysis with reflex to culture NO NRG Encounters ACCT No. Visit Date/Time Discharge Status Pt. Type Provider Facility Loc./Unit Complaint [id number] 11/05/2018 12:45:00 11/05/2018 23:59: 59 CLS Outpatient MAXIMINO INIGUEZ [facility] [id number] 06/10/2017 14:40:00 Document Registration [id number] 02/27/2017 11:20:00 Document Registration [id number] 06/20/2019 16:12:00 020 17:18:00 DIS Emergency YUVAL PINEDO, ELIAN Reddy [facility] ER BACK PAIN/CANCER IN EAR S W/ PAIN [id number] 05/26/2019 08:52:00 020 10:31:00 DIS Emergency FRIDA PINEDO, KUNAL S [facility] ER PELVIS PAIN-FELL [id number] 05/06/2019 11:08:00 019 12:47:00 DIS Emergency YUVAL PINEDO, ELIAN Reddy [facility] ER SPIDER BITE, ARM PAIN [id number] 11/22/2018 22:02:00 019 03:45:00 DIS Emergency BRITTANY PINEDO, RACHAEL Lee [facility] ER MENTAL HEALTH I SSUES, DIABETES CONCERN [id number] 11/04/2018 21:17:00 019 22:35:00 DIS Emergency MARVIN AHUMADA [facility] ER LUMPS ON HEAD [id number] 04/25/2018 12:04:00 018 12:57:00 DIS Emergency ARACELI PINEDO, NAT Palacios [facility] ER HOARSE THROAT/FACIAL SW ELLING/COUGH [id number] 06/30/2017 13:57:00 018 23:59:59 [facility] Outpatient FENNICHOLAS DOMONA S [facility] RAD R10.2,Z12.31 [id number] 06/08/2017 21:16:00 018 23:00:00 DIS Emergency BRITTANY PINEDO, RACHAEL Lee [facility] ER COUGH CHEST TRENT N NECK PAIN NOSE BLEED [id number] 04/03/2017 11:04:00 017 11:45:00 DIS Emergency PEGGY JOHNSON APRN [facility] ER LT TOE PAIN, FELL OFF P ORCH 1 WK AGO [id number] 09/04/2016 21:42:00 017 23:00:00 DIS Emergency ELIAN BARAKAT MD [facility] ER SORE ON R BREAST, LEFT LEG/BACK PAIN, FACIAL CUTS [id number] 07/01/2019 11:31:00 Document Registration [id number] 09/04/2016 21:44:00 Document Registration [id number] 06/09/2012 16:13:00 Document Registration [id number] 11/22/2011 22:13:00 Document Registration [id number] 11/05/2011 22:47:00 Document Registration [id number] 12/30/2011 09:34:00 12/30/2011 23:59: 59 [facility] Outpatient TOD KAUFMAN, ARCHIE Desai
--- NOTE | 2019-08-26 00:23 | ED Psychosocial ---
General Stated Complaint: SUICIDAL Source: patient, EMS Exam Limitations: no limitations History of Present Illness Date Seen by Provider: Aug 26, 2019 Time Seen by Provider: 00:10 Initial Comments Patient presents to the ER by EMS from the police department where she walked up to get help. She's been off her meds for little over a week or 2 because she did not have transportation to go pick them up. She sees Dr. Ibrahim [place]. She says for the past 2-3 weeks she's had suicidal ideation with a plan to slit her wrists. She has had lifelong depression and says she wants to get help get back on her medicines. She says she does not think he'll be safe for her to go home tonight. She has not done anything or taken anything to harm herself. She's had no fevers chills or productive cough. She is a daily smoker cigarettes. She says she did use of methamphetamines by smoking it yesterday which was new to her. She says she's never used methamphetamine before. She says she has stayed for a week or 2 at [facility] as well as on fifth floor inpatient psychiatric hospitalization in [place] when it still existed but nothing recently. The patient states she has a history of back pain related to back fractures and after her labs are back she would like some Tylenol. History of schizoaffective disorder with hallucinations on Zyprexa. She follows Dr. Rodríguez at [facility]. Allergies and Home Medications Allergies Coded Allergies: Bee Sting Kit *RETIRED-08/09/10 (Unverified Allergy, Mild, 11/02/08) Penicillins (Unverified Allergy, Mild, 11/02/08) Home Medications Cyclobenzaprine HCl 10 Mg Tablet, 10 MG PO TID Prescribed by: KUNAL GALICIA MD on 05/26/19 1019 Tramadol HCl 50 Mg Tablet, 100 MG PO Q6H Prescribed by: KUNAL GALICIA MD on 05/26/19 1019 Patient Home Medication List Home Medication List Reviewed: Yes Review of Systems Constitutional: No chills, No diaphoresis EENTM: No ear discharge, No hearing loss Respiratory: No cough, No short of breath Cardiovascular: No chest pain, No edema Gastrointestinal: No abdominal pain, No constipation, No diarrhea, No nausea Genitourinary: No discharge, No dysuria Musculoskeletal: see HPI, back pain; No joint pain Psychiatric/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: See HPI, Depressed All Other Systems Reviewed Negative Unless Noted: Yes Past Lzepopm-Pqfgnn-Tslcma Hx Patient Social History Alcohol Use: Denies Use Alcohol Beverage of Choice: Vodka Recreational Drug Use: Yes Drug of Choice: hx: cocaine, MARIJUANA, UNSPECIFIED "UPPERS"; methamphetamines smoked Smoking Status: Current Everyday Smoker Type Used: Cigarettes 2nd Hand Smoke Exposure: Yes Recent Hopitalizations: No Immunizations Up To Date Tetanus Booster (TDap): Unknown PED Vaccines UTD: Yes Date of Pneumonia Vaccine: Oct 17, 2009 Seasonal Allergies Seasonal Allergies: No Past Medical History Surgeries: Yes Eye Surgery Respiratory: No Cardiac: No 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: 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 /Migraines 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 0oz. [id number]; 30.00 BMI Method:Estimated General Appearance: WD/WN, mild distress HEENT: PERRL/EOMI, pharynx normal Neck: full range of motion, normal inspection Respiratory: no respiratory distress, no accessory muscle use Cardiovascular: normal peripheral pulses, regular rate, rhythm Peripheral Pulses: 2+ Radial Pulses (R), 2+ Radial Pulses (L) Gastrointestinal: non tender, soft Neurologic/Psychiatric: alert, oriented x 3 Appearance/Memory: appropriate appearance, no memory impairment Behavior/Eye Contact: cooperative, good eye contact, normal speech Thoughts/Hallucinations: no apparent hallucination, other (suicidal ideation) Skin: normal color, warm/dry Progress/Results/Core Measures Results/Orders Lab Results Laboratory Tests Test 08/26/19 00:23 08/26/19 00:50 08/26/19 00:59 Range/Units Urine Color YELLOW Urine Clarity CLEAR Urine pH 6.5 5-9 Urine Specific [place] <=1.005 1.016-1.022 Urine Protein NEGATIVE NEGATIVE Urine Glucose (UA) NEGATIVE NEGATIVE Urine Ketones NEGATIVE NEGATIVE Urine Nitrite NEGATIVE NEGATIVE Urine Bilirubin NEGATIVE NEGATIVE Urine Urobilinogen 0.2 < = 1.0 MG/DL Urine Leukocyte Esterase TRACE H NEGATIVE Urine RBC (Auto) NEGATIVE NEGATIVE Urine RBC NONE /HPF Urine WBC RARE /HPF Urine Squamous Epithelial Cells RARE /HPF Urine Crystals NONE /LPF Urine Bacteria TRACE /HPF Urine Casts NONE /LPF Urine Mucus NEGATIVE /LPF Urine Culture Indicated NO Urine Opiates Screen NEGATIVE NEGATIVE Urine Oxycodone Screen NEGATIVE NEGATIVE Urine Methadone Screen NEGATIVE NEGATIVE Urine Propoxyphene Screen NEGATIVE NEGATIVE Urine Barbiturates Screen NEGATIVE NEGATIVE Ur Tricyclic Antidepressants Screen NEGATIVE NEGATIVE Urine Phencyclidine Screen NEGATIVE NEGATIVE Urine Amphetamines Screen POSITIVE H NEGATIVE Urine Methamphetamines Screen POSITIVE H NEGATIVE Urine Benzodiazepines Screen NEGATIVE NEGATIVE Urine Cocaine Screen NEGATIVE NEGATIVE Urine Cannabinoids Screen NEGATIVE NEGATIVE Sodium Level 136 135-145 MMOL/L Potassium Level 3.8 3.6-5.0 MMOL/L Chloride Level 103 98-107 MMOL/L Carbon Dioxide Level 21 21-32 MMOL/L Anion Gap 12 5-14 MMOL/L Blood Urea Nitrogen 11 7-18 MG/DL Creatinine 0.70 0.60-1.30 MG/DL Estimat Glomerular Filtration Rate > 60 BUN/Creatinine Ratio 16 Glucose Level 106 H 70-105 MG/DL Calcium Level 9.3 8.5-10.1 MG/DL Corrected Calcium 9.2 8.5-10.1 MG/DL Total Bilirubin 0.2 0.1-1.0 MG/DL Aspartate Amino Transf (AST/SGOT) 19 5-34 U/L Alanine Aminotransferase (ALT/SGPT) 18 0-55 U/L Alkaline Phosphatase 92 40-136 U/L Total Protein 7.2 6.4-8.2 GM/DL Albumin 4.1 3.2-4.5 GM/DL Salicylates Level < 5.0 L 5.0-20.0 MG/DL Acetaminophen Level < 10 L 10-30 UG/ML Serum Alcohol < 10 <10 MG/DL White Blood Count 13.1 H 4.3-11.0 10^3/uL Red Blood Count 4.54 4.35-5.85 10^6/uL Hemoglobin 13.7 11.5-16.0 G/DL Hematocrit 41 35-52 % Mean Corpuscular Volume 90 80-99 FL Mean Corpuscular Hemoglobin 30 25-34 PG Mean Corpuscular Hemoglobin Concent 34 32-36 G/DL Red Cell Distribution Width 12.6 10.0-14.5 % Platelet Count 326 130-400 10^3/uL Mean Platelet Volume 9.0 7.4-10.4 FL Neutrophils (%) (Auto) 72 42-75 % Lymphocytes (%) (Auto) 20 12-44 % Monocytes (%) (Auto) 7 0-12 % Eosinophils (%) (Auto) 1 0-10 % Basophils (%) (Auto) 0 0-10 % Neutrophils # (Auto) 9.4 H 1.8-7.8 X 10^3 Lymphocytes # (Auto) 2.7 1.0-4.0 X 10^3 Monocytes # (Auto) 0.9 0.0-1.0 X 10^3 Eosinophils # (Auto) 0.1 0.0-0.3 10^3/uL Basophils # (Auto) 0.0 0.0-0.1 10^3/uL My Orders Orders - ELIAN BARAKAT Ua Culture If Indicated (08/26/19 00:18) Cbc With Automated Diff (08/26/19 00:18) Comprehensive Metabolic Panel (08/26/19 00:18) Alcohol (08/26/19 00:18) Drug Screen Stat (Urine) (08/26/19 00:18) Acetaminophen (08/26/19 00:18) Salicylate (08/26/19 00:18) Ekg Tracing (08/26/19 00:18) Bh Status Checks/Observation Q15M (08/26/19 00:18) Acetaminophen Tablet (Tylenol Tablet) (08/26/19 01:30) Olanzapine Orally Dissolve Tab (Zyprexa (08/26/19 03:30) Medications Given in ED Current Medications Medications Dose Ordered Sig/Juanita Route Start Time Stop Time Status Last Admin Dose Admin Olanzapine 5 mg ONCE ONCE PO 08/26/19 03:30 08/26/19 03:31 DC 08/26/19 03:29 5 MG Vital Signs/I&O 08/26/19 00:09 Temp 35.2 Pulse 100 Resp 20 B/P (MAP) 144/108 (120) Pulse Ox 98 O2 Delivery Room Air Progress Progress Note #1: Time: 00:50 Progress Note I agree with the patient that she would probably not be a good candidate to go home and follow up outpatient. Regarding to complete a medical screening and if she is cleared medically then we will pursue inpatient treatment. Progress Note #2: Time: 02:01 Progress Note Went to explain to the patient her lab results and the patient became very agitated stating that she just wanted to go home and that she prayed to God and no longer had any problems or concerns. Patient states she's no longer suicidal. She became very belligerent demanding a brother closed and send her on her way. We asked if she would be willing to really speak to the screener from [facility] to set up a safety plan she will to go home and the patient said that she doesn't want to talk to anybody any more. She is alert, oriented to person place and time but very agitated. We offered the Tylenol that she asked for earlier and she declined. We attempted to offer her to refill some of her medications but the patient was very agitated and insisted on leaving that she wanted to leave. Earlier the patient stated she had the refills at the pharmacy just no transportation to get them. We encouraged her to discuss the case with the [facility] screener and see if they could help her set up transportation to get her medications. Patient said she would just walk to the pharmacy in the morning and get him herself. Because the patient's no longer wanting to cooperate or set up a safety plan either with us or with [facility] screener's and we have asked the police department, out and talk to her. The officers who responded with the ones who made initial contact with her at the police department so were hoping that they'll be able to build rapport and develop a safety plan. Progress Note #3: Time: 03:00 Progress Note [facility] screener called and we discussed the case briefly and then put her on the portable phone with the patient. Progress Note #4: Time: 03:10 Progress Note [facility] screener called back stating that they had become disconnected. I went in and the phone was laying on the floor across the room a nd the patient says "It dropped". The patient said that she did not hang up on the screener so we reconnected phone call and then the patient screamed that she would not be talking to anybody on the phone and slammed the door. She then said that she wants her 72 hours. Screener said that she attempted to talk to the patient but the patient refused to really answer any questions. Because the patient would not cooperate this screener was unable to establish any kind of a safety plan. The patient continues to refuse to cooperate with either an inpatient or outpatient plan. She's used Zyprexa in the past so we have offered her a dose of Zyprexa and then we can readdress her in a little bit. Progress Note #5: Time: 04:20 Progress Note After a dose of Zyprexa the patient has rested feels much better and we discussed a safety plan. She is in agreement. She is going to go to the pharmacy today and hop picker her medications and resume them. She declines suicidal ideation at this time. Initial ECG Impression Date: Aug 26, 2019 Initial ECG Impression Time: 00:32 Initial ECG Rate: 88 Initial ECG Rhythm: Normal Sinus Initial ECG Intervals: Normal Initial ECG Impression: Normal Comment Normal sinus rhythm without clinically relevant ST elevation or depression. Departure Impression Primary Impression: Suicidal ideation Additional Impression: Methamphetamine abuse Disposition: 01 HOME, SELF-CARE Condition: Stable Departure-Patient Inst. Decision time for Depature: 04:20 Referrals: [facility] (PCP/Family) Primary Care Physician Patient Instructions: Suicide Prevention, OUTPT MENTAL HEALTH SERVICES, Depression, Adult (DC) Add. Discharge Instructions: Please hop picker your medications and take them as prescribed. Call your primary care provider or Dr. Ibrahim and schedule an appointment. Return to the ER. Having worsening symptoms, return thoughts of suicide or other concerns. ELIAN BARAKAT Aug 26, 2019 00:23
[2019-08-26 00:34] LABS: BILIRUBIN,URINE NEGATIVE (NEGATIVE); CLARITY,URINE CLEAR; COLOR,URINE YELLOW; GLUCOSE, URINE (UA) NEGATIVE (NEGATIVE); KETONES,URINE NEGATIVE (NEGATIVE); LEUKOCYTE ESTERASE ,URINE TRACE (NEGATIVE); NITRITE,URINE NEGATIVE (NEGATIVE); PH,URINE 6.5 (5-9); PROTEIN,URINE NEGATIVE (NEGATIVE)
[2019-08-26 00:51] LABS: BACTERIA,URINE TRACE /HPF; SQUAMOUS EPITHELIAL CELL,UR RARE /HPF; WBC,URINE RARE /HPF
[2019-08-26 01:05] LABS: ALBUMIN 4.1 GM/DL (3.2-4.5); CHLORIDE 103 MMOL/L (98-107); POTASSIUM 3.8 MMOL/L (3.6-5.0); SODIUM 136 MMOL/L (135-145)
[2019-08-26 01:05] LABS: AMPHETAMINE SCREEN, URINE POSITIVE (NEGATIVE); BARBITURATE SCREEN URINE NEGATIVE (NEGATIVE); BENZODIAZEPINES SCREEN URINE NEGATIVE (NEGATIVE); CANNABINOID SCREEN, URINE NEGATIVE (NEGATIVE); COCAINE SCREEN URINE NEGATIVE (NEGATIVE); METHADONE STAT NEGATIVE (NEGATIVE); METHAMPHETAMINE SCREEN URINE S POSITIVE (NEGATIVE); OPIATE SCREEN URINE NEGATIVE (NEGATIVE); OXYCODONE STAT NEGATIVE (NEGATIVE); PROPOXYPHENE STAT NEGATIVE (NEGATIVE); TRICYCLIC ANTIDEPRESSANTS SCRE NEGATIVE (NEGATIVE)
[2019-08-26 01:06] LABS: CALCIUM 9.3 MG/DL (8.5-10.1)
[2019-08-26 01:07] LABS: BASOPHILS % (AUTO) 0 % (0-10); EOSINOPHILS # (AUTO) 0.1 10^3/uL (0.0-0.3); EOSINOPHILS % (AUTO) 1 % (0-10); HEMATOCRIT 41 % (35-52); HEMOGLOBIN 13.7 G/DL (11.5-16.0); LYMPHOCYTES # (AUTO) 2.7 X 10^3 (1.0-4.0); LYMPHOCYTES % (AUTO) 20 % (12-44); MEAN CORPUSCULAR HEMOGLOBIN 30 PG (25-34); MEAN CORPUSCULAR HGB CONC 34 G/DL (32-36); MEAN CORPUSCULAR VOLUME 90 FL (80-99); MONOCYTES # (AUTO) 0.9 X 10^3 (0.0-1.0); MONOCYTES % (AUTO) 7 % (0-12); NEUTROPHILS # (AUTO) 9.4 X 10^3 (1.8-7.8); NEUTROPHILS % (AUTO) 72 % (42-75); PLATELET COUNT 326 10^3/uL (130-400); RED CELL DISTRIBUTION WIDTH 12.6 % (10.0-14.5); WHITE BLOOD COUNT 13.1 10^3/uL (4.3-11.0)
[2019-08-26 01:08] LABS: GLUCOSE 106 MG/DL (70-105); TOTAL PROTEIN 7.2 GM/DL (6.4-8.2)
[2019-08-26 01:09] LABS: BILIRUBIN,TOTAL 0.2 MG/DL (0.1-1.0); CARBON DIOXIDE 21 MMOL/L (21-32)
[2019-08-26 01:11] LABS: ALKALINE PHOSPHATASE 92 U/L (40-136); GFR ESTIMATED > 60
[2019-08-26 01:13] LABS: BUN/CREATININE RATIO 16
[2019-08-26 01:14] LABS: ALANINE AMINOTRANSFERASE 18 U/L (0-55); SALICYLATE < 5.0 MG/DL (5.0-20.0)
[2019-08-26 01:18] LABS: ACETAMINOPHEN < 10 UG/ML (10-30)
[2019-08-26] MEDS ORDERED: ACETAMINOPHEN 500 MG TAB (TYLENOL) PO ONE (01:30)
--- NOTE | 2019-08-26 02:00 | NUR ---
PD CONTACTED D/T PT BECOMING VERBALLY ABUSIVE WITH STAFF WHILE TRYING TO DISCUSS PT'S TREATMENT OPTIONS.
--- NOTE | 2019-08-26 02:08 | NUR ---
PD ON SCENE
--- NOTE | 2019-08-26 03:15 | NUR ---
PT REFUSED TO ANSWER MENTAL HEALTH STAFF SCREENING QUESTIONS VIA THE PHONE. PT STATES SHE REFUSES TO ANSWER ANY QUESTIONS TO "SOME BITCH SHE DOESNT KNOW."
[2019-08-26] MEDS ORDERED: OLANZapine 5 MG ODT (ZyPREXA ZYDIS) PO ONE (03:30)
[2019-08-26 04:24] VITALS: BP 144/108
== END 2019-08-26 04:24 | disposition home or self-care (01) ==
LOC: EDUNIT# 00:09 → ER 00:11
DX: R45.851 Suicidal ideations (principal); F15.10 Other stimulant abuse, uncomplicated; E11.9 Type 2 diabetes mellitus without complications; F17.210 Nicotine dependence, cigarettes, uncomplicated; Z88.0 Allergy status to penicillin
CPT/HCPCS: 36415; 80053; 80306; 80320; 80329; 81000; 85025; 93005

== ENCOUNTER 2020-03-07 19:37 | Emergency (ER) | payer MEDICARE, MEDICAID ==
[~2020-03-07] VITALS: Ht 165.1 cm; Wt 75.0 kg
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
--- NOTE | 2020-03-07 21:24 | Diagnostic Imaging Report ---
INDICATION: Shortness of breath and cough EXAM: Portable chest at 9:04 PM FINDINGS: The heart size and pulmonary vascularity are normal. There is patchy infiltrate at the left lung base. There is no effusion. IMPRESSION: Faint patchy infiltrate left lung base could be developing pneumonia. Dictated by: Dictated on workstation # [id number]
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
[2020-03-07] MEDS ORDERED: DOXYCYCLINE 100 MG (VIBRAMYCIN) TABLET PO ONE (21:30)
[2020-03-07] MEDS ORDERED: metFORMIN 500 MG (GLUCOPHAGE) TAB PO ONE (21:45)
[2020-03-07] MEDS ORDERED: traZODone 150 MG (DESYREL) TABLET PO ONE (21:45)
[2020-03-07] MEDS ORDERED: PARO40TA3 PO (21:46)
[2020-03-07] MEDS ORDERED: DOXY100T2 PO (21:46)
[2020-03-07] MEDS ORDERED: TRAZ150T72 PO (21:46)
[2020-03-07] MEDS ORDERED: METF-760 PO (21:46)
[2020-03-07 22:00] VITALS: BP 128/99
== END 2020-03-07 22:00 | disposition home or self-care (01) ==
LOC: EDUNIT# 19:37 → ER 19:38
DX: S09.93XA Unspecified injury of face, initial encounter (principal); R91.8 Other nonspecific abnormal finding of lung field; F17.210 Nicotine dependence, cigarettes, uncomplicated; E11.9 Type 2 diabetes mellitus without complications; F41.9 Anxiety disorder, unspecified; Z60.9 Problem related to social environment, unspecified; Z76.0 Encounter for issue of repeat prescription; Z20.828 Contact with and (suspected) exposure to other viral communicable diseases; Z85.828 Personal history of other malignant neoplasm of skin; Z88.0 Allergy status to penicillin; Z91.030 Bee allergy status; Z79.84 Long term (current) use of oral hypoglycemic drugs; Y04.2XXA Assault by strike against or bumped into by another person, initial encounter
CPT/HCPCS: 70450; 70486; 71045; 72125; 82962; 87804; 99283; U0002; 87635

== ENCOUNTER 2020-12-25 14:48 | Emergency (ER) | payer MEDICARE, MEDICAID ==
[~2020-12-25] VITALS: Ht 165.1 cm; Wt 86.0 kg
[~2020-12-25 14:48] MED LIST changes: +DOXY100T2 PO; +METF-845 PO; +PARO40TA3 PO; -SULF1TAB35 PO; +SULF1TAB38 PO; +TRAZ150T72 PO
[2020-12-25 15:06] LABS: BASOPHILS # (AUTO) 0.1 10^3/uL (0.0-0.1); BASOPHILS % (AUTO) 0 % (0-10); EOSINOPHILS # (AUTO) 0.2 10^3/uL (0.0-0.3); EOSINOPHILS % (AUTO) 2 % (0-10); HEMATOCRIT 42 % (35-52); LYMPHOCYTES # (AUTO) 3.1 10^3/uL (1.0-4.0); LYMPHOCYTES % (AUTO) 22 % (12-44); MEAN CORPUSCULAR HEMOGLOBIN 30 pg (25-34); MEAN CORPUSCULAR HGB CONC 33 g/dL (32-36); MEAN CORPUSCULAR VOLUME 91 fL (80-99); MONOCYTES # (AUTO) 0.9 10^3/uL (0.0-1.0); MONOCYTES % (AUTO) 6 % (0-12); NEUTROPHILS # (AUTO) 9.8 10^3/uL (1.8-7.8); NEUTROPHILS % (AUTO) 69 % (42-75); PLATELET COUNT 341 10^3/uL (130-400); WHITE BLOOD COUNT 14.2 10^3/uL (4.3-11.0)
[2020-12-25 15:15] LABS: INR 0.9 (0.8-1.4); PROTHROMBIN TIME PATIENT 12.8 SEC (12.2-14.7)
[2020-12-25 15:23] LABS: ALBUMIN 3.6 GM/DL (3.2-4.5); CHLORIDE 99 MMOL/L (98-107); POTASSIUM 4.1 MMOL/L (3.6-5.0); SODIUM 137 MMOL/L (135-145)
[2020-12-25 15:25] LABS: CALCIUM 9.7 MG/DL (8.5-10.1)
[2020-12-25 15:26] LABS: GLUCOSE 102 MG/DL (70-105); TOTAL PROTEIN 7.3 GM/DL (6.4-8.2)
[2020-12-25 15:27] LABS: BILIRUBIN,TOTAL 0.1 MG/DL (0.1-1.0); CARBON DIOXIDE 27 MMOL/L (21-32)
[2020-12-25 15:29] LABS: ALKALINE PHOSPHATASE 84 U/L (40-136); CREATININE SERUM 0.76 MG/DL (0.60-1.30); GFR ESTIMATED 78
[2020-12-25 15:30] LABS: BUN/CREATININE RATIO 20
[2020-12-25 15:32] LABS: ALANINE AMINOTRANSFERASE 23 U/L (0-55); MAGNESIUM 1.9 MG/DL (1.6-2.4)
[2020-12-25 15:33] LABS: EOSINOPHILS % (MANUAL) 3 %; LYMPHOCYTES % (MANUAL) 13 %; MONOCYTES % (MANUAL) 11 %; NEUTROPHILS % (MANUAL) 73 %; RBC MORPH NORMAL
--- NOTE | 2020-12-25 15:41 | Diagnostic Imaging Report ---
INDICATION: Chest pain. TIME OF EXAM: 03:23 p.m. COMPARISON: Correlation is made with prior chest from 03/07/2020. The heart size is normal. The pulmonary vascularity is unremarkable. The lungs are clear. No infiltrate, effusion or pneumothorax is detected. IMPRESSION: No acute cardiopulmonary process is detected. Dictated by: Dictated on workstation # [id number]
--- NOTE | 2020-12-25 16:25 | ED Chest Pain ---
General Chief Complaint: Chest Pain Stated Complaint: CHEST PAIN Source: old records, other (nursing notes) Exam Limitations: no limitations Allergies and Home Medications Allergies Coded Allergies: Bee Sting Kit *RETIRED-08/09/10 (Unverified Allergy, Mild, 11/02/08) Penicillins (Unverified Allergy, Mild, 11/02/08) Home Medications Cyclobenzaprine HCl 10 Mg Tablet, 10 MG PO TID Prescribed by: KUNAL GALICIA MD on 05/26/19 101 Doxycycline Hyclate 100 Mg Tablet, 100 MG PO BID Prescribed by: RACHAEL JOSEPH on 03/07/202145 Metformin HCl 500 Mg Dhrqfij46u, 500 MG PO BID Prescribed by: RACHAEL JOSEPH on 03/07/202145 Paroxetine HCl 40 Mg Tablet, 40 MG PO DAILY Prescribed by: RACHAEL JOSEPH on 03/07/202145 Tramadol HCl 50 Mg Tablet, 100 MG PO Q6H Prescribed by: KUNAL GALICIA MD on 05/26/191018 Trazodone HCl 150 Mg Tablet, 150 MG PO HS Prescribed by: RACHAEL JOSEPH on 03/07/202145 Past Ihgtypv-Azrvmw-Qaejth Hx Patient Social History Tobacco Use?: Yes Tobacco type used: Cigarettes Smoking Status: Current Everyday Smoker Substance use?: Yes Substance type: Amphetamines, Methamphetamine Additional substance use comme: Pt denies use. 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00" Weight: 178lbs. 0oz. 80.562183km; 27.00 BMI Method:Estimated Progress/Results/Core Measures Results/Orders Lab Results Laboratory Tests Test 12/25/20 14:50 Range/Units White Blood Count 14.2 H 4.3-11.0 10^3/uL Red Blood Count 4.63 3.80-5.11 10^6/uL Hemoglobin 14.0 11.5-16.0 g/dL Hematocrit 42 35-52 % Mean Corpuscular Volume 91 80-99 fL Mean Corpuscular Hemoglobin 30 25-34 pg Mean Corpuscular Hemoglobin Concent 33 32-36 g/dL Red Cell Distribution Width 13.0 10.0-14.5 % Platelet Count 341 130-400 10^3/uL Mean Platelet Volume 9.0 9.0-12.2 fL Immature Granulocyte % (Auto) 1 % Neutrophils (%) (Auto) 69 42-75 % Lymphocytes (%) (Auto) 22 12-44 % Monocytes (%) (Auto) 6 0-12 % Eosinophils (%) (Auto) 2 0-10 % Basophils (%) (Auto) 0 0-10 % Neutrophils # (Auto) 9.8 H 1.8-7.8 10^3/uL Lymphocytes # (Auto) 3.1 1.0-4.0 10^3/uL Monocytes # (Auto) 0.9 0.0-1.0 10^3/uL Eosinophils # (Auto) 0.2 0.0-0.3 10^3/uL Basophils # (Auto) 0.1 0.0-0.1 10^3/uL Immature Granulocyte # (Auto) 0.1 0.0-0.1 10^3/uL Neutrophils % (Manual) 73 % Lymphocytes % (Manual) 13 % Monocytes % (Manual) 11 % Eosinophils % (Manual) 3 % Blood Morphology Comment NORMAL Prothrombin Time 12.8 12.2-14.7 SEC INR Comment 0.9 0.8-1.4 Activated Partial Thromboplast Time 27 24-35 SEC Sodium Level 137 135-145 MMOL/L Potassium Level 4.1 3.6-5.0 MMOL/L Chloride Level 99 98-107 MMOL/L Carbon Dioxide Level 27 21-32 MMOL/L Anion Gap 11 5-14 MMOL/L Blood Urea Nitrogen 15 7-18 MG/DL Creatinine 0.76 0.60-1.30 MG/DL Estimat Glomerular Filtration Rate 78 BUN/Creatinine Ratio 20 Glucose Level 102 70-105 MG/DL Calcium Level 9.7 8.5-10.1 MG/DL Corrected Calcium 10.0 8.5-10.1 MG/DL Magnesium Level 1.9 1.6-2.4 MG/DL Total Bilirubin 0.1 0.1-1.0 MG/DL Aspartate Amino Transf (AST/SGOT) 21 5-34 U/L Alanine Aminotransferase (ALT/SGPT) 23 0-55 U/L Alkaline Phosphatase 84 40-136 U/L Myoglobin 67.0 10.0-92.0 NG/ML Troponin I < 0.028 <0.028 NG/ML Total Protein 7.3 6.4-8.2 GM/DL Albumin 3.6 3.2-4.5 GM/DL My Orders Orders - RACHAEL SOTO MD Cbc With Automated Diff (12/25/20 14:55) Magnesium (12/25/20 14:55) Chest 1 View, Ap/Pa Only (12/25/20 14:55) Ekg Tracing (12/25/20 14:55) Comprehensive Metabolic Panel (12/25/20 14:55) Myoglobin Serum (12/25/20 14:55) Protime With Inr (12/25/20 14:55) Partial Thromboplastin Time (12/25/20 14:55) O2 (12/25/20 14:55) Monitor-Rhythm Ecg Trace Only (12/25/20 14:55) Ed Iv/Invasive Line Start (12/25/20 14:55) Manual Differential (12/25/20 14:50) Troponin I (12/25/20 14:50) Vital Signs/I&O 12/25/20 12/25/20 12/25/20 14:48 14:48 16:26 Temp 37.0 Pulse 104 100 Resp 26 19 B/P (MAP) 131/92 (105) 135/90 Pulse Ox 96 99 O2 Delivery Room Air Room Air Initial ECG Impression Date: Dec 25, 2020 Initial ECG Impression Time: 14:50 Initial ECG Rate: 97 Initial ECG Rhythm: Normal Sinus Comment Sinus rhythm with borderline tachycardia. No ST elevation or depression. No abnormal intervals or axis deviation. Departure Impression Disposition: 07 AGAINST MEDICAL ADVICE Departure-Patient Inst. Referrals: [facility] (PCP) Primary Care Physician RACHAEL SOTO MD Dec 25, 2020 16:25
[2020-12-25 16:26] VITALS: BP 135/90
== END 2020-12-25 15:54 | disposition left against medical advice (07) ==
LOC: EDUNIT# 14:48 → ER 14:49
DX: R07.9 Chest pain, unspecified (principal); E11.9 Type 2 diabetes mellitus without complications; F41.9 Anxiety disorder, unspecified; F17.210 Nicotine dependence, cigarettes, uncomplicated; Z79.84 Long term (current) use of oral hypoglycemic drugs; Z79.899 Other long term (current) drug therapy
CPT/HCPCS: 36415; 71045; 80053; 83735; 83874; 84484; 85007; 85027; 85610; 85730; 93005; 93041

== ENCOUNTER 2021-02-21 11:43 | Emergency (ER) | payer MEDICARE, MEDICAID ==
[~2021-02-21] VITALS: Ht 65 cm; Wt 81.2 kg
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
[2021-02-21] MEDS ORDERED: ORPHENADRINE 60 MG/2 ML (NORFLEX) AMP (ED ONLY) IM ONE (12:15)
[2021-02-21] MEDS ORDERED: KETOROLAC 30 MG/ML VIAL IM ONE (12:15)
--- NOTE | 2021-02-21 13:50 | Diagnostic Imaging Report ---
INDICATION: Shortness of breath, fall. COMPARISON: 12/25/2020. FINDINGS: Single view of the chest demonstrates clear lungs bilaterally. The heart is normal. There is no pneumothorax. Osseous structures are normal. IMPRESSION: Negative chest. Dictated by: Dictated on workstation # [id number]
[2021-02-21] MEDS ORDERED: COVID-19 VACC, MRNA(PFIZER)/PF 30 MCG/0.3 ML VIAL IM ONE (14:00)
[2021-02-21 15:08] VITALS: BP 113/58
== END 2021-02-21 15:12 | disposition home or self-care (01) ==
LOC: ER 11:44
DX: S20.211A Contusion of right front wall of thorax, initial encounter (principal); M54.50 Low back pain, unspecified; E11.9 Type 2 diabetes mellitus without complications; F41.9 Anxiety disorder, unspecified; Z20.822 Contact with and (suspected) exposure to COVID-19; Z72.0 Tobacco use; Z23 Encounter for immunization; Z79.84 Long term (current) use of oral hypoglycemic drugs; Z79.899 Other long term (current) drug therapy; W22.8XXA Striking against or struck by other objects, initial encounter
CPT/HCPCS: 71045; 82947; 87636; 91300

== ENCOUNTER 2021-10-15 20:35 | Emergency (ER) | payer MEDICARE, MEDICAID ==
[~2021-10-15] VITALS: Ht 165 cm; Wt 80.0 kg
[~2021-10-15 20:35] MED LIST changes: +CYCL10TA25 PO; -CYCL10TA9 PO
[2021-10-15 20:45] VITALS: BP 124/85
[2021-10-15] MEDS ORDERED: CEPH500T PO (20:54)
[2021-10-15] MEDS ORDERED: METF-397 PO (20:54)
[2021-10-15] MEDS ORDERED: PARO20TA5 PO (20:55)
--- NOTE | 2021-10-15 20:55 | ED General ---
General Stated Complaint: PRODUCTIVE COUGH/NO RX FOR DIABETES Source of Information: Patient Exam Limitations: No Limitations History of Present Illness Date Seen by Provider: October 15, 2021 Time Seen by Provider: 20:50 Initial Comments To ER with a 1 month history of productive cough of white sputum. She was formerly on metformin 500 mg twice a day for diabetes and paroxetine for anxiety. 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 She is not undergoing any treatment currently nor does she have an oncologist as she is homeless. Timing/Duration: 1-2 Days Severity: Moderate Associated Systoms: Denies Symptoms Allergies and Home Medications Allergies Coded Allergies: Bee Sting Kit (Unverified Allergy, Mild, 11/02/08) Penicillins (Unverified Allergy, Mild, 11/02/08) Patient Home Medication List Home Medication List Reviewed: Yes Cephalexin (Cephalexin) 500 Mg Tablet, 500 MG PO TID Prescribed by: PEGGY JOHNSON on 10/15/212053 Cyclobenzaprine HCl (Cyclobenzaprine HCl) 10 Mg Tablet, 10 MG PO TID Prescribed by: KUNAL GALICIA MD on 05/26/19 101 Doxycycline Hyclate (Doxycycline Hyclate) 100 Mg Tablet, 100 MG PO BID Prescribed by: RACHAEL JOSEPH on 03/07/202145 Metformin HCl (Metformin HCl ER) 500 Mg [id number], 500 MG PO BID Prescribed by: RACHAEL JOSEPH on 03/07/202145 Metformin HCl (Metformin HCl) 500 Mg Tablet, 500 MG PO BID Prescribed by: PEGGY JOHNSON on 10/15/212053 Paroxetine HCl (Paroxetine HCl) 40 Mg Tablet, 40 MG PO DAILY Prescribed by: RACHAEL JOSEPH on 03/07/202145 Paroxetine HCl (Paroxetine HCl) 20 Mg Tablet, 20 MG PO DAILY Prescribed by: PEGGY JOHNSON on 10/15/212054 Tramadol HCl (Ultram) 50 Mg Tablet, 100 MG PO Q6H Prescribed by: KUNAL GALICIA MD on 05/26/191018 Trazodone HCl (Trazodone HCl) 150 Mg Tablet, 150 MG PO HS Prescribed by: RACHAEL JOSEPH on 03/07/202145 Review of Systems Review of Systems Constitutional: see HPI EENTM: see HPI Respiratory: see HPI, cough Cardiovascular: no symptoms reported Genitourinary: no symptoms reported Musculoskeletal: no symptoms reported Skin: no symptoms reported Psychiatric/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: No Symptoms Reported Hematologic/Lymphatic: No Symptoms Reported Past Qliejro-Ltatow-Immrht Hx Immunizations Up To Date Tetanus Booster (TDap): Unknown PED Vaccines UTD: Yes Seasonal Allergies Seasonal Allergies: No Past Medical History Surgeries: Yes (UTERINE SX, FOOT SX) Eye Surgery Respiratory: No Cardiac: No 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: 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 /Migraines [employer] History: Menopausal Genitourinary: Yes UTI-Chronic Gastrointestinal: No Musculoskeletal: Yes Back Injury, Chronic Back Pain, Fractures Endocrine: Yes Diabetes, Non-Insulin dep HEENT: No Cataract Hearing Impairment: Denies Cancer: Yes Skin Did You Recieve Any Treatments: Yes What Type of Treatment Did You: Surgical Intervention Psychosocial: No Anxiety, Bipolar, Personality Disorder Integumentary: Yes (EAR LESIONS) Recent Skin Changes Blood Disorders: No Adverse Reaction/Blood Tranf: No Physical Exam Vital Signs Vital Signs - First Documented 10/15/21 20:45 Temp 36.6 Pulse 98 Resp 16 B/P (MAP) 124/85 (98) Pulse Ox 95 O2 Delivery Room Air Capillary Refill : Height, Weight, BMI Height: 5'5.00" Weight: 178lbs. 0oz. 80.651911ir; 192.00 BMI Method:Estimated General Appearance: No Apparent Distress, WD/WN, Other (Sores across her face consistent with a skin picking behavior) Eyes: Bilateral Eye Normal Inspection, Bilateral Eye PERRL, Bilateral Eye EOMI Neck: Full Range of Motion, Normal Inspection Respiratory: No Accessory Muscle Use, No Respiratory Distress Cardiovascular: Regular Rate, Rhythm, Normal Peripheral Pulses Gastrointestinal: Normal Bowel Sounds, Non Tender, Soft Extremity: Normal Capillary Refill, Normal Inspection Neurologic/Psychiatric: Alert, Oriented x3 Skin: Normal Color, Warm/Dry Progress/Results/Core Measures Suspected Sepsis SIRS Temperature: Pulse: Respiratory Rate: Laboratory Tests 10/15/21 20:56: White Blood Count 11.5H Blood Pressure / Mean: Laboratory Tests 10/15/21 20:56: Creatinine 0.83, Platelet Count 361 Results/Orders Lab Results Laboratory Tests Test 10/15/21 20:56 Range/Units White Blood Count 11.5 H 4.3-11.0 10^3/uL Red Blood Count 4.60 3.80-5.11 10^6/uL Hemoglobin 13.5 11.5-16.0 g/dL Hematocrit 41 35-52 % Mean Corpuscular Volume 89 80-99 fL Mean Corpuscular Hemoglobin 29 25-34 pg Mean Corpuscular Hemoglobin Concent 33 32-36 g/dL Red Cell Distribution Width 12.7 10.0-14.5 % Platelet Count 361 130-400 10^3/uL Mean Platelet Volume 8.7 L 9.0-12.2 fL Immature Granulocyte % (Auto) 1 % Neutrophils (%) (Auto) 65 42-75 % Lymphocytes (%) (Auto) 25 12-44 % Monocytes (%) (Auto) 7 0-12 % Eosinophils (%) (Auto) 2 0-10 % Basophils (%) (Auto) 0 0-10 % Neutrophils # (Auto) 7.4 1.8-7.8 10^3/uL Lymphocytes # (Auto) 2.9 1.0-4.0 10^3/uL Monocytes # (Auto) 0.8 0.0-1.0 10^3/uL Eosinophils # (Auto) 0.2 0.0-0.3 10^3/uL Basophils # (Auto) 0.1 0.0-0.1 10^3/uL Immature Granulocyte # (Auto) 0.1 0.0-0.1 10^3/uL Sodium Level 136 135-145 MMOL/L Potassium Level 4.0 3.6-5.0 MMOL/L Chloride Level 101 98-107 MMOL/L Carbon Dioxide Level 21 21-32 MMOL/L Anion Gap 14 5-14 MMOL/L Blood Urea Nitrogen 9 7-18 MG/DL Creatinine 0.83 0.60-1.30 MG/DL Estimat Glomerular Filtration Rate 80 BUN/Creatinine Ratio 11 Glucose Level 188 H 70-105 MG/DL Calcium Level 9.1 8.5-10.1 MG/DL My Orders Orders - PEGGY JOHNSON APRN Cbc With Automated Diff (10/15/21 20:49) Basic Metabolic Panel (10/15/21 20:49) Chest 1 View, Ap/Pa Only (10/15/21 20:49) Cephalexin Capsule (Keflex Capsule) (10/15/21 21:00) Metformin Tablet (Glucophage Tablet) (10/15/21 21:00) Vital Signs/I&O 10/15/21 20:45 Temp 36.6 Pulse 98 Resp 16 B/P (MAP) 124/85 (98) Pulse Ox 95 O2 Delivery Room Air Capillary Refill : Departure Communication (Admissions) Family Conversation [id number]-patient walked briskly out of the room and left the hospital without even saying goodbye. Not ready for discharge yet NAME: DEON URBINA [facility] REC#: [id number] PT STATUS: REG ER : 1960 PHYSICIAN: PEGGY JOHNSON APRN ADMIT DATE: 10/15/21/ER Signed Date of Exam:10/15/21 CHEST 1 VIEW, AP/PA ONLY CHEST 1 VIEW, AP/PA ONLY Indication: Cough Comparison: 02/21/2021 Findings: No focal airspace disease in the visualized lungs. Please note that the posterior lower lobes are poorly evaluated by portable radiography. No pleural effusion or pneumothorax. Normal cardiomediastinal silhouette. Impression: 1. No acute cardiopulmonary process by portable radiography. Dictated by: Dictated on workstation # [id number] Dict: 10/15/212108 Trans: 10/15/212108 [facility] [id number] Interpreted by: SELMA CARRERA MD Electronically signed by: SELMA CARRERA MD 10/15/212108 Impression Primary Impression: Bronchitis Additional Impression: Homelessness Disposition: 07 AGAINST MEDICAL ADVICE Condition: Against Medical Advice Departure-Patient Inst. Decision time for Depature: 20:52 Referrals: [facility] [place] (PCP/Family) Primary Care Physician Patient Instructions: Acute Bronchitis PEGGY JOHNSON APRN October 15, 2021 20:55
[2021-10-15] MEDS ORDERED: metFORMIN 500 MG (GLUCOPHAGE) TAB PO SCH (21:00)
[2021-10-15] MEDS ORDERED: CEPHALEXIN 250 MG (KEFLEX) CAP PO SCH (21:00)
[2021-10-15 21:03] LABS: BASOPHILS # (AUTO) 0.1 10^3/uL (0.0-0.1); BASOPHILS % (AUTO) 0 % (0-10); EOSINOPHILS # (AUTO) 0.2 10^3/uL (0.0-0.3); EOSINOPHILS % (AUTO) 2 % (0-10); HEMATOCRIT 41 % (35-52); HEMOGLOBIN 13.5 g/dL (11.5-16.0); LYMPHOCYTES # (AUTO) 2.9 10^3/uL (1.0-4.0); LYMPHOCYTES % (AUTO) 25 % (12-44); MEAN CORPUSCULAR HEMOGLOBIN 29 pg (25-34); MEAN CORPUSCULAR HGB CONC 33 g/dL (32-36); MEAN CORPUSCULAR VOLUME 89 fL (80-99); MEAN PLATELET VOLUME 8.7 fL (9.0-12.2); MONOCYTES # (AUTO) 0.8 10^3/uL (0.0-1.0); MONOCYTES % (AUTO) 7 % (0-12); NEUTROPHILS # (AUTO) 7.4 10^3/uL (1.8-7.8); NEUTROPHILS % (AUTO) 65 % (42-75); PLATELET COUNT 361 10^3/uL (130-400); WHITE BLOOD COUNT 11.5 10^3/uL (4.3-11.0)
--- NOTE | 2021-10-15 21:11 | Diagnostic Imaging Report ---
CHEST 1 VIEW, AP/PA ONLY Indication: Cough Comparison: 02/21/2021 Findings: No focal airspace disease in the visualized lungs. Please note that the posterior lower lobes are poorly evaluated by portable radiography. No pleural effusion or pneumothorax. Normal cardiomediastinal silhouette. Impression: 1. No acute cardiopulmonary process by portable radiography. Dictated by: Dictated on workstation # [id number]
[2021-10-15 21:17] LABS: CALCIUM 9.1 MG/DL (8.5-10.1)
[2021-10-15 21:21] LABS: CREATININE SERUM 0.83 MG/DL (0.60-1.30)
== END 2021-10-15 21:23 | disposition left against medical advice (07) ==
LOC: EDUNIT# 20:35 → ER 20:36
DX: J40 Bronchitis, not specified as acute or chronic (principal); E11.9 Type 2 diabetes mellitus without complications; F41.9 Anxiety disorder, unspecified; T43.226A Underdosing of selective serotonin reuptake inhibitors, initial encounter; T38.3X6A Underdosing of insulin and oral hypoglycemic [antidiabetic] drugs, initial encounter; C43.9 Malignant melanoma of skin, unspecified; C78.89 Secondary malignant neoplasm of other digestive organs; Z91.120 Patient's intentional underdosing of medication regimen due to financial hardship; Z59.00 Homelessness unspecified
CPT/HCPCS: 36415; 71045; 80048; 85025

== ENCOUNTER 2021-10-26 15:52 | Emergency (ER) | payer MEDICARE, MEDICAID ==
[~2021-10-26] VITALS: Ht 165.1 cm; Wt 81.4 kg
[~2021-10-26 15:52] MED LIST changes: +METF-397 PO; +PARO20TA5 PO
[2021-10-26 16:13] VITALS: BP 134/82
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
[2021-10-26 16:40] LABS: BASOPHILS # (AUTO) 0.1 10^3/uL (0.0-0.1); BASOPHILS % (AUTO) 1 % (0-10); HEMATOCRIT 40 % (35-52); MEAN CORPUSCULAR VOLUME 91 fL (80-99); MONOCYTES # (AUTO) 0.9 10^3/uL (0.0-1.0)
[2021-10-26 16:42] LABS: EOSINOPHILS # (AUTO) 0.3 10^3/uL (0.0-0.3); EOSINOPHILS % (AUTO) 3 % (0-10); HEMOGLOBIN 13.1 g/dL (11.5-16.0); LYMPHOCYTES # (AUTO) 2.4 10^3/uL (1.0-4.0); LYMPHOCYTES % (AUTO) 24 % (12-44); MEAN CORPUSCULAR HEMOGLOBIN 30 pg (25-34); MEAN CORPUSCULAR HGB CONC 33 g/dL (32-36); MEAN PLATELET VOLUME 9.3 fL (9.0-12.2); MONOCYTES % (AUTO) 9 % (0-12); NEUTROPHILS # (AUTO) 6.5 10^3/uL (1.8-7.8); NEUTROPHILS % (AUTO) 64 % (42-75); PLATELET COUNT 332 10^3/uL (130-400)
[2021-10-26 16:53] LABS: ALBUMIN 3.5 GM/DL (3.2-4.5); CHLORIDE 103 MMOL/L (98-107); POTASSIUM 4.1 MMOL/L (3.6-5.0); SODIUM 134 MMOL/L (135-145)
[2021-10-26 16:55] LABS: CALCIUM 8.7 MG/DL (8.5-10.1)
[2021-10-26 16:56] LABS: GLUCOSE 102 MG/DL (70-105); TOTAL PROTEIN 6.9 GM/DL (6.4-8.2)
[2021-10-26 16:57] LABS: CARBON DIOXIDE 22 MMOL/L (21-32)
[2021-10-26 16:58] LABS: BILIRUBIN,TOTAL 0.2 MG/DL (0.1-1.0)
[2021-10-26 16:59] LABS: ALKALINE PHOSPHATASE 82 U/L (40-136)
[2021-10-26 17:00] LABS: CREATININE SERUM 0.65 MG/DL (0.60-1.30); GFR ESTIMATED 100
[2021-10-26 17:01] LABS: BUN/CREATININE RATIO 18
[2021-10-26 17:02] LABS: ALANINE AMINOTRANSFERASE 18 U/L (0-55)
== END 2021-10-26 16:45 | disposition left against medical advice (07) ==
LOC: EDUNIT# 15:52 → ER 15:54
DX: R07.89 Other chest pain (principal); F45.0 Somatization disorder; E11.9 Type 2 diabetes mellitus without complications; C43.39 Malignant melanoma of other parts of face; C78.89 Secondary malignant neoplasm of other digestive organs; F17.210 Nicotine dependence, cigarettes, uncomplicated; Z79.84 Long term (current) use of oral hypoglycemic drugs; Z28.311 Partially vaccinated for COVID-19; Z79.899 Other long term (current) drug therapy
CPT/HCPCS: 36415; 80053; 84484; 85025; 93005

== ENCOUNTER 2021-12-31 13:58 | Emergency (ER) | payer MEDICARE, MEDICAID ==
[~2021-12-31] VITALS: Ht 165 cm; Wt 74.8 kg
--- NOTE | 2021-12-31 14:02 | ED General ---
General Chief Complaint: Cough/Cold/Flu Symptoms Stated Complaint: N/V - COUGHING UP BLOOD Source of Information: Patient Exam Limitations: No Limitations History of Present Illness Date Seen by Provider: Dec 31, 2021 Time Seen by Provider: 14:02 Initial Comments to ER by EMS. She is homeless, uses meth most recently 4 days ago. She also claims to be "full of cancer". She states that she started vomiting blood this morning. She does have some nausea. She also has right knee pain. She also has some sores on her face that she is worried about. She also has low back pain. Timing/Duration: 1-2 Days Severity: Moderate Associated Systoms: Denies Symptoms Allergies and Home Medications Allergies Coded Allergies: Bee Sting Kit (Unverified Allergy, Mild, 11/02/08) Penicillins (Unverified Allergy, Mild, 11/02/08) Patient Home Medication List Home Medication List Reviewed: Yes Cyclobenzaprine HCl (Cyclobenzaprine HCl) 10 Mg Tablet, 10 MG PO TID Prescribed by: KUNAL GALICIA MD on 05/26/191018 Doxycycline Hyclate (Doxycycline Hyclate) 100 Mg Tablet, 100 MG PO BID Prescribed by: RACHAEL JOSEPH on 03/07/202145 Metformin HCl (Metformin HCl ER) 500 Mg [id number], 500 MG PO BID Prescribed by: RACHAEL JOSEPH on 03/07/202145 Paroxetine HCl (Paroxetine HCl) 40 Mg Tablet, 40 MG PO DAILY Prescribed by: RACHAEL JOSEPH on 03/07/202145 Tramadol HCl (Ultram) 50 Mg Tablet, 100 MG PO Q6H Prescribed by: KUNAL GALICIA MD on 05/26/191018 Trazodone HCl (Trazodone HCl) 150 Mg Tablet, 150 MG PO HS Prescribed by: RACHAEL JOSEPH on 03/07/202145 Review of Systems Review of Systems Constitutional: see HPI EENTM: see HPI Respiratory: no symptoms reported Cardiovascular: no symptoms reported Gastrointestinal: abdominal pain Genitourinary: no symptoms reported Musculoskeletal: no symptoms reported Skin: no symptoms reported Psychiatric/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: No Symptoms Reported Hematologic/Lymphatic: No Symptoms Reported Immunological/Allergic: no symptoms reported Past Rpamafd-Rmrlox-Eyknjm Hx Immunizations Up To Date Tetanus Booster (TDap): Unknown PED Vaccines UTD: Yes First/Initial COVID19 Vaccinat: 2020 Seasonal Allergies Seasonal Allergies: No Past Medical History Surgery/Hospitalization HX: 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, DM2 Surgeries: Yes (UTERINE SX, FOOT SX) Eye Surgery Respiratory: No Cardiac: No 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: 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 /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 Genitourinary: Yes UTI-Chronic Gastrointestinal: No Musculoskeletal: Yes Back Injury, Chronic Back Pain, Fractures Endocrine: Yes Diabetes, Non-Insulin dep HEENT: No Cataract Hearing Impairment: Denies Cancer: Yes Skin Did You Recieve Any Treatments: Yes What Type of Treatment Did You: Surgical Intervention Psychosocial: No Anxiety, Bipolar, Personality Disorder Integumentary: Yes (EAR LESIONS) Recent Skin Changes Blood Disorders: No Adverse Reaction/Blood Tranf: No Physical Exam Vital Signs Vital Signs - First Documented 12/31/21 14:02 Temp 36.8 Pulse 105 Resp 18 B/P (MAP) 123/83 (96) Pulse Ox 95 O2 Delivery Room Air Capillary Refill : Height, Weight, BMI Height: 5'5.00" Weight: 178lbs. 0oz. [id number]; 29.00 BMI Method:Estimated General Appearance: No Apparent Distress, WD/WN, Other (Alert. Oriented. Little tachycardic with a heart rate of 105. Blood pressure is fine. She is unable to sit still, constantly moving. Superficial sores on her face consistent with a skin picking behavior. Bilateral lower extremities are pink warm and well-perfused and without any edema or erythema.) Eyes: Bilateral Eye Normal Inspection, Bilateral Eye PERRL Neck: Full Range of Motion, Normal Inspection Respiratory: No Accessory Muscle Use, No Respiratory Distress Cardiovascular: Regular Rate, Rhythm, Normal Peripheral Pulses Gastrointestinal: Normal Bowel Sounds, Non Tender, Soft Extremity: Normal Capillary Refill, Normal Inspection Neurologic/Psychiatric: Alert, Oriented x3 Skin: Normal Color, Warm/Dry Progress/Results/Core Measures Suspected Sepsis SIRS Temperature: Pulse: Respiratory Rate: Laboratory Tests 12/31/21 14:03: White Blood Count 11.1H Blood Pressure / Mean: Laboratory Tests 12/31/21 14:03: Creatinine 0.86, INR Comment 0.9, Platelet Count 362, Total Bilirubin 0.2 Results/Orders Lab Results Laboratory Tests Test 12/31/21 14:03 Range/Units White Blood Count 11.1 H 4.3-11.0 10^3/uL Red Blood Count 4.50 3.80-5.11 10^6/uL Hemoglobin 13.3 11.5-16.0 g/dL Hematocrit 40 35-52 % Mean Corpuscular Volume 88 80-99 fL Mean Corpuscular Hemoglobin 30 25-34 pg Mean Corpuscular Hemoglobin Concent 33 32-36 g/dL Red Cell Distribution Width 13.3 10.0-14.5 % Platelet Count 362 130-400 10^3/uL Mean Platelet Volume 8.9 L 9.0-12.2 fL Immature Granulocyte % (Auto) 1 % Neutrophils (%) (Auto) 68 42-75 % Lymphocytes (%) (Auto) 21 12-44 % Monocytes (%) (Auto) 7 0-12 % Eosinophils (%) (Auto) 3 0-10 % Basophils (%) (Auto) 1 0-10 % Neutrophils # (Auto) 7.5 1.8-7.8 10^3/uL Lymphocytes # (Auto) 2.4 1.0-4.0 10^3/uL Monocytes # (Auto) 0.8 0.0-1.0 10^3/uL Eosinophils # (Auto) 0.3 0.0-0.3 10^3/uL Basophils # (Auto) 0.1 0.0-0.1 10^3/uL Immature Granulocyte # (Auto) 0.1 0.0-0.1 10^3/uL Prothrombin Time 12.5 12.2-14.7 SEC INR Comment 0.9 0.8-1.4 Sodium Level 140 135-145 MMOL/L Potassium Level 3.3 L 3.6-5.0 MMOL/L Chloride Level 105 98-107 MMOL/L Carbon Dioxide Level 24 21-32 MMOL/L Anion Gap 11 5-14 MMOL/L Blood Urea Nitrogen 8 7-18 MG/DL Creatinine 0.86 0.60-1.30 MG/DL Estimat Glomerular Filtration Rate 77 BUN/Creatinine Ratio 9 Glucose Level 139 H 70-105 MG/DL Calcium Level 9.0 8.5-10.1 MG/DL Corrected Calcium 9.3 8.5-10.1 MG/DL Total Bilirubin 0.2 0.1-1.0 MG/DL Aspartate Amino Transf (AST/SGOT) 16 5-34 U/L Alanine Aminotransferase (ALT/SGPT) 19 0-55 U/L Alkaline Phosphatase 71 40-136 U/L Troponin I < 0.028 <0.028 NG/ML B-Type Natriuretic Peptide 14.9 <100.0 PG/ML Total Protein 6.8 6.4-8.2 GM/DL Albumin 3.6 3.2-4.5 GM/DL Lipase 44 8-78 U/L My Orders Orders - PEGGY JOHNSON APRN Cbc With Automated Diff (12/31/21 14:00) Comprehensive Metabolic Panel (12/31/21 14:00) Protime With Inr (12/31/21 14:00) Chest 1 View, Ap/Pa Only (12/31/21 14:00) Ekg Tracing (12/31/21 14:00) Troponin I Broderick (12/31/21 14:00) Bnp Broderick (12/31/21 14:00) Antacid Suspension (Mylanta Suspension (12/31/21 14:15) Lidocaine 2% Viscous 15 Ml (Xylocaine Vi (12/31/21 14:15) Ondansetron Injection (Zofran Injectio (12/31/21 14:15) Lipase (12/31/21 14:10) Lorazepam Tablet (Ativan Tablet) (12/31/21 14:10) Medications Given in ED Current Medications Medications Dose Ordered Sig/Juanita Route Start Time Stop Time Status Last Admin Dose Admin Al Hydrox/Mg Hydrox/Simethicone 30 ml ONCE ONCE PO 12/31/21 14:15 12/31/21 14:16 DC 12/31/21 14:24 30 ML Lidocaine HCl 15 ml ONCE ONCE PO 12/31/21 14:15 12/31/21 14:16 DC 12/31/21 14:24 15 ML Ondansetron HCl 4 mg ONCE ONCE IVP 12/31/21 14:15 12/31/21 14:16 DC 12/31/21 14:21 4 MG Vital Signs/I&O 12/31/21 12/31/21 14:02 14:02 Temp 36.8 Pulse 105 Resp 18 B/P (MAP) 123/83 (96) Pulse Ox 95 O2 Delivery Room Air Capillary Refill : Departure Impression Primary Impression: Multiple somatic complaints Additional Impression: Homelessness Disposition: 01 HOME, SELF-CARE Condition: Stable Departure-Patient Inst. Decision time for Depature: 14:13 Referrals: [facility] (PCP/Family) Primary Care Physician Patient Instructions: NO INSTRUCTIONS GIVEN Add. Discharge Instructions: All discharge instructions reviewed with patient and/or family. Voiced understanding. PEGGY JOHNSON APRN Dec 31, 2021 14:02
[2021-12-31] MEDS ORDERED: LORazepam 0.5 MG (ATIVAN) TABLET PO STA (14:10)
[2021-12-31 14:11] LABS: BASOPHILS # (AUTO) 0.1 10^3/uL (0.0-0.1); BASOPHILS % (AUTO) 1 % (0-10); EOSINOPHILS # (AUTO) 0.3 10^3/uL (0.0-0.3); EOSINOPHILS % (AUTO) 3 % (0-10); HEMATOCRIT 40 % (35-52); HEMOGLOBIN 13.3 g/dL (11.5-16.0); LYMPHOCYTES # (AUTO) 2.4 10^3/uL (1.0-4.0); LYMPHOCYTES % (AUTO) 21 % (12-44); MEAN CORPUSCULAR HEMOGLOBIN 30 pg (25-34); MEAN CORPUSCULAR HGB CONC 33 g/dL (32-36); MEAN CORPUSCULAR VOLUME 88 fL (80-99); MEAN PLATELET VOLUME 8.9 fL (9.0-12.2); MONOCYTES # (AUTO) 0.8 10^3/uL (0.0-1.0); MONOCYTES % (AUTO) 7 % (0-12); NEUTROPHILS # (AUTO) 7.5 10^3/uL (1.8-7.8); NEUTROPHILS % (AUTO) 68 % (42-75); PLATELET COUNT 362 10^3/uL (130-400); WHITE BLOOD COUNT 11.1 10^3/uL (4.3-11.0)
[2021-12-31] MEDS ORDERED: ONDANSETRON 4 MG/2 ML (SDV) Z0FRAN IVP ONE (14:15)
[2021-12-31 14:18] LABS: ALBUMIN 3.6 GM/DL (3.2-4.5)
[2021-12-31 14:19] LABS: CHLORIDE 105 MMOL/L (98-107); POTASSIUM 3.3 MMOL/L (3.6-5.0); SODIUM 140 MMOL/L (135-145)
[2021-12-31 14:20] LABS: INR 0.9 (0.8-1.4); PROTHROMBIN TIME PATIENT 12.5 SEC (12.2-14.7)
[2021-12-31 14:21] LABS: GLUCOSE 139 MG/DL (70-105); TOTAL PROTEIN 6.8 GM/DL (6.4-8.2)
[2021-12-31] MEDS: ANTACID SUSP 30 ML UDC (MYLANTA) PO ONE ×2 (14:21→14:24)
[2021-12-31] MEDS: LIDOCAINE 2% VISCOUS 15 ML UDC PO ONE ×2 (14:21→14:24)
[2021-12-31 14:22] LABS: CARBON DIOXIDE 24 MMOL/L (21-32)
[2021-12-31 14:23] LABS: BILIRUBIN,TOTAL 0.2 MG/DL (0.1-1.0)
[2021-12-31 14:24] LABS: ALKALINE PHOSPHATASE 71 U/L (40-136)
[2021-12-31 14:25] LABS: CREATININE SERUM 0.86 MG/DL (0.60-1.30); GFR ESTIMATED 77
[2021-12-31 14:26] LABS: BUN/CREATININE RATIO 9
[2021-12-31 14:27] LABS: ALANINE AMINOTRANSFERASE 19 U/L (0-55)
--- NOTE | 2021-12-31 14:49 | Diagnostic Imaging Report ---
INDICATION: Chest pain, hemoptysis, nausea and vomiting. TECHNIQUE: Single view chest 2:23 PM. CORRELATION STUDY: 10/15/2021 FINDINGS: Heart size is borderline enlarged. Vasculature within normal limits. The lungs are clear with no consolidating infiltrate. There is no significant effusion or pneumothorax. IMPRESSION: 1. Negative for acute abnormality of the chest. Given presenting symptoms and no identifiable source, if indicated, CT imaging of the chest recommended. Dictated by: Dictated on workstation # [id number]
[2021-12-31 14:52] VITALS: BP 141/87
== END 2021-12-31 14:52 | disposition home or self-care (01) ==
LOC: ER 13:58 → EDUNIT# 13:58 → ER 14:52
DX: L98.9 Disorder of the skin and subcutaneous tissue, unspecified (principal); R00.0 Tachycardia, unspecified; Z59.00 Homelessness unspecified; Z28.311 Partially vaccinated for COVID-19
CPT/HCPCS: 36415; 71045; 80053; 83690; 83880; 84484; 85025; 85610; 93005

== ENCOUNTER 2022-02-11 10:04 | Emergency (ER) | payer MEDICARE, MEDICAID ==
[~2022-02-11] VITALS: Ht 165.1 cm; Wt 72.2 kg
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
[2022-02-11] MEDS ORDERED: TETANUS,DIPTH,PERTUSS P/F (BOOSTRIX) 0.5 ML VIAL IM ONE (10:45)
[2022-02-11] MEDS ORDERED: NS IV 1000 ML 1,000 ML IV ONE (10:45)
[2022-02-11] MEDS ORDERED: KETOROLAC 30 MG/ML VIAL IVP ONE (10:45)
[2022-02-11 11:13] LABS: BASOPHILS % (AUTO) 0 % (0-10); EOSINOPHILS # (AUTO) 0.2 10^3/uL (0.0-0.3); EOSINOPHILS % (AUTO) 2 % (0-10); HEMATOCRIT 43 % (35-52); HEMOGLOBIN 14.3 g/dL (11.5-16.0); LYMPHOCYTES # (AUTO) 2.1 10^3/uL (1.0-4.0); LYMPHOCYTES % (AUTO) 19 % (12-44); MEAN CORPUSCULAR HEMOGLOBIN 30 pg (25-34); MEAN CORPUSCULAR HGB CONC 33 g/dL (32-36); MEAN CORPUSCULAR VOLUME 89 fL (80-99); MONOCYTES # (AUTO) 0.7 10^3/uL (0.0-1.0); MONOCYTES % (AUTO) 6 % (0-12); NEUTROPHILS # (AUTO) 8.1 10^3/uL (1.8-7.8); NEUTROPHILS % (AUTO) 73 % (42-75); PLATELET COUNT 339 10^3/uL (130-400); WHITE BLOOD COUNT 11.1 10^3/uL (4.3-11.0)
[2022-02-11 11:29] LABS: ALBUMIN 3.9 GM/DL (3.2-4.5); POTASSIUM 3.5 MMOL/L (3.6-5.0)
[2022-02-11 11:30] LABS: CALCIUM 9.5 MG/DL (8.5-10.1)
[2022-02-11 11:32] LABS: TOTAL PROTEIN 7.4 GM/DL (6.4-8.2)
[2022-02-11 11:33] LABS: BILIRUBIN,TOTAL 0.3 MG/DL (0.1-1.0)
[2022-02-11 11:35] LABS: CREATININE SERUM 0.75 MG/DL (0.60-1.30)
--- NOTE | 2022-02-11 12:00 | Diagnostic Imaging Report ---
EXAMINATION: Right knee radiographs. EXAM DATE: 02/11/2022 11:36 AM. COMPARISON: None available. HISTORY: Right knee pain. TECHNIQUE: Three views. FINDINGS: There is no acute fracture, dislocation, or destructive osseous process. Small osteophytes of the medial and lateral compartments. Joint spaces are preserved. The soft tissues are normal. IMPRESSION: No acute osseous abnormality. Dictated by: Dictated on workstation # [id number]
--- NOTE | 2022-02-11 12:01 | Diagnostic Imaging Report ---
EXAMINATION: Pelvis and bilateral hip radiographs. EXAM DATE: 02/11/2022 11:36 AM. COMPARISON: None available. HISTORY: Pelvis and hip pain. TECHNIQUE: 5 views. FINDINGS: There is no acute fracture, dislocation, or destructive osseous process. The joint spaces are normal. The soft tissues are normal. IMPRESSION: No acute osseous abnormality. Dictated by: Dictated on workstation # [id number]
[2022-02-11] MEDS ORDERED: DOXYCYCLINE 100 MG (VIBRAMYCIN) TABLET PO STA (12:28)
[2022-02-11] MEDS ORDERED: NAPR-1211 PO (12:33)
[2022-02-11] MEDS ORDERED: DOXY100T2 PO (12:33)
[2022-02-11 12:57] VITALS: BP 112/76
== END 2022-02-11 12:57 | disposition home or self-care (01) ==
LOC: EDUNIT# 10:04 → ER 10:06
DX: M25.561 Pain in right knee (principal); M25.511 Pain in right shoulder; L08.9 Local infection of the skin and subcutaneous tissue, unspecified; F17.210 Nicotine dependence, cigarettes, uncomplicated; Z23 Encounter for immunization; Z28.310 Unvaccinated for COVID-19
CPT/HCPCS: 36415; 73523; 73562; 80053; 85025; 86141; 90715

== ENCOUNTER 2022-03-13 21:37 | Emergency (ER) | payer MEDICARE, MEDICAID ==
[~2022-03-13 21:37] MED LIST changes: +NAPR-1211 PO
[2022-03-13 22:16] LABS: BASOPHILS # (AUTO) 0.1 10^3/uL (0.0-0.1); BASOPHILS % (AUTO) 1 % (0-10); EOSINOPHILS # (AUTO) 0.4 10^3/uL (0.0-0.3); EOSINOPHILS % (AUTO) 3 % (0-10); HEMATOCRIT 40 % (35-52); HEMOGLOBIN 13.2 g/dL (11.5-16.0); LYMPHOCYTES # (AUTO) 2.9 10^3/uL (1.0-4.0); LYMPHOCYTES % (AUTO) 26 % (12-44); MEAN CORPUSCULAR HEMOGLOBIN 30 pg (25-34); MEAN CORPUSCULAR HGB CONC 33 g/dL (32-36); MEAN CORPUSCULAR VOLUME 90 fL (80-99); MEAN PLATELET VOLUME 9.5 fL (9.0-12.2); MONOCYTES # (AUTO) 0.8 10^3/uL (0.0-1.0); MONOCYTES % (AUTO) 8 % (0-12); NEUTROPHILS # (AUTO) 6.9 10^3/uL (1.8-7.8); NEUTROPHILS % (AUTO) 62 % (42-75); PLATELET COUNT 388 10^3/uL (130-400); WHITE BLOOD COUNT 11.1 10^3/uL (4.3-11.0)
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
[2022-03-13 22:23] LABS: ALBUMIN 3.8 GM/DL (3.2-4.5); CHLORIDE 105 MMOL/L (98-107); POTASSIUM 4.1 MMOL/L (3.6-5.0); SODIUM 135 MMOL/L (135-145)
[2022-03-13 22:25] LABS: CALCIUM 9.1 MG/DL (8.5-10.1)
[2022-03-13 22:26] LABS: GLUCOSE 105 MG/DL (70-105); TOTAL PROTEIN 7.6 GM/DL (6.4-8.2)
[2022-03-13 22:27] LABS: CARBON DIOXIDE 21 MMOL/L (21-32)
[2022-03-13 22:28] LABS: BILIRUBIN,TOTAL 0.2 MG/DL (0.1-1.0)
[2022-03-13 22:29] LABS: MAGNESIUM 2.1 MG/DL (1.6-2.4)
[2022-03-13 22:30] LABS: ALKALINE PHOSPHATASE 83 U/L (40-136); CREATININE SERUM 0.87 MG/DL (0.60-1.30); GFR ESTIMATED 76
[2022-03-13 22:31] LABS: ACETAMINOPHEN < 10 UG/ML (10-30); BUN/CREATININE RATIO 14
[2022-03-13 22:32] LABS: INR 0.9 (0.8-1.4); PROTHROMBIN TIME PATIENT 12.6 SEC (12.2-14.7)
[2022-03-13 22:33] LABS: ALANINE AMINOTRANSFERASE 20 U/L (0-55); SALICYLATE < 5.0 MG/DL (5.0-20.0)
[2022-03-13 22:53] LABS: TSH (THYROID ANALYZER) 1.47 UIU/ML (0.35-4.94)
[2022-03-14 01:07] LABS: AMPHETAMINE SCREEN, URINE NEGATIVE (NEGATIVE); BARBITURATE SCREEN URINE NEGATIVE (NEGATIVE); BENZODIAZEPINES SCREEN URINE NEGATIVE (NEGATIVE); CANNABINOID SCREEN, URINE NEGATIVE (NEGATIVE); COCAINE SCREEN URINE NEGATIVE (NEGATIVE); METHADONE STAT NEGATIVE (NEGATIVE); OPIATE SCREEN URINE NEGATIVE (NEGATIVE); OXYCODONE STAT NEGATIVE (NEGATIVE); PROPOXYPHENE STAT NEGATIVE (NEGATIVE); TRICYCLIC ANTIDEPRESSANTS SCRE NEGATIVE (NEGATIVE)
--- NOTE | 2022-03-14 07:01 | Diagnostic Imaging Report ---
INDICATION: coughing up blood COMPARISON: 12/31/2021 FINDINGS: Single frontal view of the chest demonstrates normal heart size and pulmonary vascularity. The lungs are well aerated and clear. No large pleural effusion or pneumothorax is seen. The visualized osseous structures show no acute abnormalities. IMPRESSION: 1. No acute cardiopulmonary process. Dictated by: Dictated on workstation # [id number]
[2022-03-14] MEDS ORDERED: CYCLOBENZAPRINE 10 MG (FLEXERIL) TAB PO STA (16:43)
[2022-03-14] MEDS ORDERED: ACETAMINOPHEN 500 MG TAB (TYLENOL) PO ONE (16:45)
[2022-03-15] MEDS ORDERED: NICOTINE 2 MG LOZENGE (COMMIT) MM PRN (14:45)
[2022-03-15] MEDS ORDERED: ZIPRASIDONE 20 MG (GEODON) CAP PO ONE (15:00)
[2022-03-16 06:13] VITALS: BP 149/97
== END 2022-03-16 06:13 | disposition short-term general hospital (02) ==
LOC: EDUNIT# 21:37 → ER 21:38
DX: R45.851 Suicidal ideations (principal); R45.850 Homicidal ideations; E66.9 Obesity, unspecified; F17.210 Nicotine dependence, cigarettes, uncomplicated; Z91.14 Patient's other noncompliance with medication regimen; Z68.26 Body mass index [BMI] 26.0-26.9, adult; Z20.822 Contact with and (suspected) exposure to COVID-19; Z28.310 Unvaccinated for COVID-19
CPT/HCPCS: 71045; 80053; 80306; 82550; 83690; 83735; 83874; 83880; 84443; 84484; 85025; 85379; 85610; 85730; 87636; 93005; 99284; G0480 ×3; 36415; 80320; 80329

== ENCOUNTER 2022-04-27 02:15 | Emergency (ER) | payer MEDICARE, MEDICAID ==
--- NOTE | 2022-04-27 02:45 | ED General ---
General Stated Complaint: THROAT SWELLING CLOSED Source of Information: Patient Exam Limitations: No Limitations History of Present Illness Date Seen by Provider: Apr 27, 2022 Time Seen by Provider: 02:30 Initial Comments This is 61-year-old woman presented to the emergency room by ambulation with complaints of sensation of throat closing and shortness of breath. She reported using methamphetamine to nursing staff as a means to control her pain. She reported having cancer and having pain and swelling along the right side of her head and neck. She was belligerent with nursing staff during assessment, excl aiming "I want to fight somebody!" She was yelling at the nurse stating, "You don't understand sick people, I need a doctor right now." I entered the room and then she proceeded to yell at me. I told her I would come back in the room when she calm down. She became more belligerent, ripped off her blood pressure cuff and pulse oximeter, and stormed out of the emergency room yelling in a belligerent fashion stating she would file a complaint with [facility]. Allergies and Home Medications Allergies Coded Allergies: Bee Sting Kit (Unverified Allergy, Mild, 11/02/08) Penicillins (Unverified Allergy, Mild, 11/02/08) Patient Home Medication List Home Medication List Reviewed: Yes Cyclobenzaprine HCl (Cyclobenzaprine HCl) 10 Mg Tablet, 10 MG PO TID Prescribed by: KUNAL GALICIA MD on 05/26/19 1019 Doxycycline Hyclate (Doxycycline Hyclate) 100 Mg Tablet, 100 MG PO BID Prescribed by: RACHAEL JOSEPH on 03/07/202145 Doxycycline Hyclate (Doxycycline Hyclate) 100 Mg Tablet, 100 MG PO BID Prescribed by: CARLOS VALENZUELA on 02/11/22 123 Metformin HCl (Metformin HCl ER) 500 Mg [id number], 500 MG PO BID Prescribed by: RACHAEL JOSEPH on 03/07/202145 Naproxen (EC-Naproxen) 500 Mg Tablet.dr, 500 MG PO BID PRN for PAIN-MILD (1-4) Prescribed by: CARLOS VALENZUELA on 02/11/22 123 Paroxetine HCl (Paroxetine HCl) 40 Mg Tablet, 40 MG PO DAILY Prescribed by: RACHAEL JOSEPH on 03/07/202145 Tramadol HCl (Ultram) 50 Mg Tablet, 100 MG PO Q6H Prescribed by: KUNAL GALICIA MD on 05/26/19 101 Trazodone HCl (Trazodone HCl) 150 Mg Tablet, 150 MG PO HS Prescribed by: RACHAEL JOSEPH on 03/07/202145 Review of Systems Review of Systems Constitutional: no symptoms reported EENTM: see HPI Respiratory: see HPI Cardiovascular: no symptoms reported Gastrointestinal: no symptoms reported Genitourinary: no symptoms reported Musculoskeletal: no symptoms reported Skin: no symptoms reported Psychiatric/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: No Symptoms Reported Hematologic/Lymphatic: No Symptoms Reported Past Kplhsbz-Tksdnm-Qldvrj Hx Patient Social History Substance use?: Yes Substance type: Methamphetamine Immunizations Up To Date Tetanus Booster (TDap): Unknown PED Vaccines UTD: Yes First/Initial COVID19 Vaccinat: 2020 Second COVID19 Vaccination Dani: 2020 Third COVID19 Vaccination Date: 2020 Seasonal Allergies Seasonal Allergies: No Past Medical History Surgery/Hospitalization HX: 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, DM2 Surgeries: Yes (UTERINE SX, FOOT SX) Eye Surgery Respiratory: No Cardiac: No 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: 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 /Migraines : 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 0oz. 80.577749ex; 26.00 BMI Method:Estimated General Appearance: WD/WN, Other (Agitated) HEENT: Other (Numerous scabbed lesions on the face) Respiratory: Other (Audible wheezing or stridor from a distance. Patient left before auscultation with stethoscope could be performed) Neurologic/Psychiatric: Alert, Other (Agitated, belligerent, ambulatory) Skin: Warm/Dry, Other (Multiple scabbed lesions on the face) Progress/Results/Core Measures Suspected Sepsis SIRS Temperature: Pulse: Respiratory Rate: Blood Pressure / Mean: Results/Orders Vital Signs/I&O Capillary Refill : Progress Note : Progress Note Patient became progressively agitated and belligerent. Even before being roomed she was belligerent and pounded on the window at the registration desk. She would not calm down to be safely examined or assessed and eventually stormed out of the ER without being examined. Departure Impression Primary Impression: Left against medical advice Additional Impressions: Aggressive behavior Shortness of breath Disposition: 07 AGAINST MEDICAL ADVICE Condition: Against Medical Advice Departure-Patient Inst. Referrals: [facility] (PCP) Primary Care Physician Copy Copies To 1: [facility]/RACHAEL LEAL MD Apr 27, 2022 02:45
== END 2022-04-27 02:31 | disposition left against medical advice (07) ==
LOC: EDUNIT# 02:15 → ER 02:17
DX: R06.02 Shortness of breath (principal); R46.89 Other symptoms and signs involving appearance and behavior

== ENCOUNTER 2022-09-22 16:45 | Emergency (ER) | payer MEDICARE, MEDICAID ==
[~2022-09-22] VITALS: Ht 162.5 cm; Wt 77.1 kg
[2022-09-22 17:20] VITALS: BP 139/78
--- NOTE | 2022-09-22 18:24 | Diagnostic Imaging Report ---
INDICATION: Left foot pain. COMPARISON: 04/03/2017. FINDINGS: There is a mildly displaced obliquely oriented fracture of the shaft of the 5th metatarsal. Prior fracture of the proximal phalanx of the 5th toe has healed. No additional fracture is evident. There is no joint dislocation or malalignment. IMPRESSION: 1. Mildly displaced obliquely oriented 5th metatarsal shaft fracture. 2. Prior proximal phalanx fracture of the 5th toe has healed compared to the prior exam. Dictated by: Dictated on workstation # [id number]
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
== END 2022-09-22 18:24 | disposition left against medical advice (07) ==
LOC: EDUNIT# 16:45 → ER 16:47
DX: S92.352A Displaced fracture of fifth metatarsal bone, left foot, initial encounter for closed fracture (principal); R45.6 Violent behavior; F17.210 Nicotine dependence, cigarettes, uncomplicated; W50.0XXA Accidental hit or strike by another person, initial encounter; Y92.811 Bus as the place of occurrence of the external cause
CPT/HCPCS: 73630; 99281

== ENCOUNTER 2022-10-05 04:25 | Emergency (ER) | payer MEDICARE, MEDICAID ==
--- NOTE | 2022-10-05 04:43 | ED General ---
General Stated Complaint: METH USE Source of Information: Patient (SPEECH IS ERRATIC, RAPID, TANGENTIAL, PT IS HOSTILE, VERBALLY ABUSIVE, CURSING. ), EMS History of Present Illness Date Seen by Provider: October 05, 2022 Time Seen by Provider: 04:28 Initial Comments PT ARRIVES VIA EMS--WALKS IN ON HER OWN FROM THE AMBULANCE EMS STATES PT IS ON METH AND IS "SEEING THINGS" PT STATES SHE IS "SEEING THINGS" SHE STATES SOME LUIS FERNANDO IN THE STORE CALLED THE POLICE--PT WAS AT [facility] PT'S SPEECH IS RAPID, ERRATIC, TANGENTIAL, SOMEWHAT MUMBLED --CANNOT KEEP ON SUBJECT AND RAMBLING ON NON-STOP AND DOES NOT STOP TALKING WHEN I TRY TO ASK Q UESTIONS. SHE RAPIDLY ESCALATES, AND BEGINS CURSING AND INCREASINGLY BELLIGERENT PT IS LONGSTANDING POLYSUBSTANCE ABUSER, ESPECIALLY METH. SHE STATES "I ONLY METH BECAUSE I HAVE CANCER--I SMOKED IT 9 DAYS AGO--IT'S NOT MY DRUG OF CHOICE--COCAINE IS MY DRUG OF CHOICE BUT I HAVEN'T USED THAT IN YEARS" THEN LITERALLY THE NEXT WORDS OUT OF PT'S MOUTH IS A RANT ABOUT THAT SHE HAS NEVER USED DRUGS, NEVER DRANK ALCOHOL AND NEVER SMOKED SHE REFUSES TO HAVE BLOOD DRAWN OR GIVE URINE SPECIMEN. ADVISED PT THAT SHE WOULD NEED TO HAVE TESTS DONE TO EVALUATE HER SYMPTOMS SHE ADAMANTLY REFUSES ALL TESTS ADVISED HER SHE WOULD BE LEAVING AMA, AND SHE IMMEDIATELY GETS UP AND THEN PROCEEDS TO CURSE NON-STOP AND THREATENS RN,AND STORMS OUT OF ER--REFUSED TO SIGN AMA PAPERS Allergies and Home Medications Allergies Coded Allergies: Bee Sting Kit (Unverified Allergy, Mild, 11/02/08) Penicillins (Unverified Allergy, Mild, 11/02/08) Patient Home Medication List Home Medication List Reviewed: No Cyclobenzaprine HCl (Cyclobenzaprine HCl) 10 Mg Tablet, 10 MG PO TID Prescribed by: KUNAL GALICIA MD on 05/26/19 1019 Doxycycline Hyclate (Doxycycline Hyclate) 100 Mg Tablet, 100 MG PO BID Prescribed by: RACHAEL JOSEPH on 03/07/20 2146 Doxycycline Hyclate (Doxycycline Hyclate) 100 Mg Tablet, 100 MG PO BID Prescribed by: CARLOS VALENZUELA on 02/11/22 1233 Metformin HCl (Metformin HCl ER) 500 Mg [id number], 500 MG PO BID Prescribed by: RACHAEL JOSEPH on 03/07/202145 Naproxen (EC-Naproxen) 500 Mg Tablet.dr, 500 MG PO BID PRN for PAIN-MILD (1-4) Prescribed by: CARLOS VALENZUELA on 02/11/22 1233 Paroxetine HCl (Paroxetine HCl) 40 Mg Tablet, 40 MG PO DAILY Prescribed by: RACHAEL JOSEPH on 03/07/202145 Tramadol HCl (Ultram) 50 Mg Tablet, 100 MG PO Q6H Prescribed by: KUNAL GALICIA MD on 05/26/19 1019 Trazodone HCl (Trazodone HCl) 150 Mg Tablet, 150 MG PO HS Prescribed by: RACHAEL JOSEPH on 03/07/202145 Review of Systems Review of Systems Constitutional: see HPI Past Jpgehdm-Iodjih-Mxjgvz Hx Patient Social History Tobacco Use?: Yes Substance use?: Yes Substance type: Amphetamines, Methamphetamine Additional substance use comme: COCAINE Alcohol Use?: Yes Immunizations Up To Date Tetanus Booster (TDap): Unknown PED Vaccines UTD: Yes First/Initial COVID19 Vaccinat: 2020 Second COVID19 Vaccination Dani: 2020 Third COVID19 Vaccination Date: 2020 Seasonal Allergies Seasonal Allergies: No Past Medical History Surgery/Hospitalization HX: 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--STATED BY PT, DM2 THERE IS NO PHYSICIAN DOCUMENTATION OF VERIFICATION OF CANCER DIAGNOSIS Surgeries: Yes (UTERINE SX, FOOT SX) Eye Surgery Respiratory: No Cardiac: No 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 0oz. 80.789295vw; 29.00 BMI Method:Estimated General Appearance: No Apparent Distress, Other (BEHAVIOR NOTED ABOVE. PT IS VERY UNKEMPT AND FILTHY, MALODOROUS, BAREFOOT. WALKS WITHOUT DIFFICULTY) Neurologic/Psychiatric: Alert, Other ( ABOVE) Progress/Results/Core Measures Suspected Sepsis SIRS Temperature: Pulse: Respiratory Rate: Blood Pressure / Mean: Results/Orders Vital Signs/I&O Capillary Refill : Progress Note : Progress Note REVIEWED PRIOR RECORDS, ALL ER VISITS Departure Impression Primary Impression: Left against medical advice Disposition: 07 AGAINST MEDICAL ADVICE Condition: Against Medical Advice Departure-Patient Inst. Referrals: [facility] (PCP/Family) Primary Care Physician SERA INIGUEZ DO October 05, 2022 04:42
== END 2022-10-05 04:34 | disposition left against medical advice (07) ==
LOC: EDUNIT# 04:25 → ER 04:26
DX: R47.89 Other speech disturbances (principal)

== ENCOUNTER 2022-10-25 01:58 | Emergency (ER) | payer MEDICARE, MEDICAID ==
[2022-10-25] MEDS ORDERED: DOXY100T2 PO (04:17)
[2022-10-25] MEDS ORDERED: NAPR500T8 PO (04:17)
== END 2022-10-25 02:34 | disposition left against medical advice (07) ==
LOC: EDUNIT# 01:58 → ER 02:00

== ENCOUNTER 2022-10-25 03:24 | Emergency (ER) | payer MEDICARE, MEDICAID ==
[~2022-10-25] VITALS: Ht 162.5 cm; Wt 77.5 kg
[2022-10-25 03:58] VITALS: BP 141/111
[2022-10-25] MEDS ORDERED: NAPROXEN 250 MG (NAPROSYN) TABLET PO ONE (04:15)
[2022-10-25] MEDS ORDERED: DOXY100T2 PO (04:17)
[2022-10-25] MEDS ORDERED: NAPR500T8 PO (04:17)
--- NOTE | 2022-10-25 04:17 | ED General ---
General Chief Complaint: Lower Extremity Stated Complaint: PSYCH Nursing Triage Note: c/o bilateral foot pain Source of Information: Patient (VERY DIFFICULT HISTORIAN--SPEECH IS RAPID AND ERRATIC AND TANGENTIAL. APPEARS TO BE UNDER THE INFLUENCE OF SOME SUBSTANCE/S), Old Records (ALL PMH IS FROM OLD RECORDS) History of Present Illness Date Seen by Provider: Oct 25, 2022 Time Seen by Provider: 04:05 Initial Comments PT ARRIVES AMBULATORY TO ER PT IS HOMELESS, AND KNOWN HISTORY OF METHAMPHETAMINE ADDICTION. SHE C/O BILATERAL FOOT PAIN, SHE STATES THIS IS A CHRONIC PROBLEM FOR THE LAST 2-3 YEARS. SHE HAS NOT TAKEN ANYTHING FOR PAIN PT HAS HISTORY OF DIABETES, AND STATES SHE USED TO BE ON LYRICA FOR IT. SHE HAS NOT ATTEMPTED TO FOLLOW UP WITH [facility] FOR A LONG TIME. ON ARRIVAL AT THE [employer]INTENA[employer]CE WORK[employer], PT IS WANTING US TO GIVE HER A BATH AND WASH HER CLOTHES, SHE WANTS THIS SOON I WALK IN THE ROOM TO EXAMINE HER. HER SPEECH IS RAPID AND ERRATIC AND TANGENTIAL AND RAPIDLY SWITCHING FROM ONE SUBJECT TO THE NEXT FROM SENTENCE TO SENTENCE. SHE STATES SHE WANTS SOMETHING FOR PAIN FOR HER FEET--PT IS WEARING SLIDE-TYPE SANDALS AND SOCKS SHE THEN WANTS AN ANTIBIOTIC--STATES SHE HAS THESE "THINGS GROWING ON MY FACE AND I KEEP PULLING THINGS OUT OF THEM" AND STATES HER NOSE IS RUNNING AND SHE NEEDS AN ANTIBIOTIC-OF NOTE, HER NOSE STARTED RUNNING WHEN SHE STARTED CRYING. SHE THEN WANTS NEW SOCKS AND NEW CLOTHES, AND THEN WANTS US TO GIVE HER A RIDE TO THE [employer] icix, THEN THE LIST RAPIDLY GOES ON ABOUT ALL THE SOCIAL ISSUES THAT SHE WANTS. I ADVISED HER THAT WE WOULD TAKE CARE OF HER MEDICAL COMPLAINT OF CHRONIC FOOT PAIN AND ALL OTHER ISSUES SHE WOULD NEED TO FOLLOW UP WITH [facility] FOR AND WITH THEIR SALES MERCHANDISER FOR ASSISTANCE WITH HER OTHER NEEDS. PT CHECKED INTO ER EARLIER, THEN LEFT WITHOUT BEING SEEN FROM THE WAITING ROOM. PCP; [facility] Allergies and Home Medications Allergies Coded Allergies: Bee Sting Kit (Unverified Allergy, Mild, 11/02/08) Penicillins (Unverified Allergy, Mild, 11/02/08) Patient Home Medication List Home Medication List Reviewed: Yes Cyclobenzaprine HCl (Cyclobenzaprine HCl) 10 Mg Tablet, 10 MG PO TID Prescribed by: KUNAL GALICIA MD on 05/26/19 1019 Doxycycline Hyclate (Doxycycline Hyclate) 100 Mg Tablet, 100 MG PO BID Prescribed by: RACHAEL JOSEPH on 03/07/202145 Doxycycline Hyclate (Doxycycline Hyclate) 100 Mg Tablet, 100 MG PO BID Prescribed by: CARLOS VALENZUELA on 02/11/22 1233 Doxycycline Hyclate (Doxycycline Hyclate) 100 Mg Tablet, 100 MG PO BID Prescribed by: SERA INIGUEZ on 10/25/22 0417 Metformin HCl (Metformin HCl ER) 500 Mg [id number], 500 MG PO BID Prescribed by: RACHAEL JOSEPH on 03/07/202145 Naproxen (EC-Naproxen) 500 Mg Tablet.dr, 500 MG PO BID PRN for PAIN-MILD (1-4) Prescribed by: CARLOS VALENZUELA on 02/11/22 1233 Naproxen (Naproxen) 500 Mg Tablet.dr, 500 MG PO BID Prescribed by: SERA INIGUEZ on 10/25/227 Paroxetine HCl (Paroxetine HCl) 40 Mg Tablet, 40 MG PO DAILY Prescribed by: RACHAEL JOSEPH on 03/07/202145 Tramadol HCl (Ultram) 50 Mg Tablet, 100 MG PO Q6H Prescribed by: KUNAL GALICIA MD on 05/26/19 101 Trazodone HCl (Trazodone HCl) 150 Mg Tablet, 150 MG PO HS Prescribed by: RACHAEL JOSEPH on 03/07/202145 Review of Systems Review of Systems Constitutional: no symptoms reported Musculoskeletal: see HPI Past Kftmdny-Jhzuzu-Zyxxyi Hx Patient Social History Tobacco Use?: Yes Tobacco type used: Cigarettes Smoking Status: Current Everyday Smoker Substance use?: Yes Substance type: Methamphetamine Substance frequency: Daily Alcohol Use?: Yes Alcohol Frequency: Daily Pt feels they are or have been: No Immunizations Up To Date Tetanus Booster (TDap): Unknown PED Vaccines UTD: Yes First/Initial COVID19 Vaccinat: 2020 Second COVID19 Vaccination Dani: 2020 Third COVID19 Vaccination Date: 2020 Seasonal Allergies Seasonal Allergies: No Past Medical History Surgery/Hospitalization HX: 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 PERIPHERAL NEUROPATHY ? 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 Genitourinary: Yes UTI-Chronic Gastrointestinal: No Musculoskeletal: Yes Back Injury, Chronic Back Pain, Fractures Endocrine: Yes Diabetes, Non-Insulin dep HEENT: No Cataract Hearing Impairment: Denies Cancer: Yes Skin Did You Recieve Any Treatments: Yes What Type of Treatment Did You: Surgical Intervention Psychosocial: Yes (POLYSUBSTANCE ABUSE) Anxiety, Bipolar, Personality Disorder Integumentary: Yes (EAR LESIONS) Recent Skin Changes Blood Disorders: No Adverse Reaction/Blood Tranf: No Family Medical History SOCIAL HISTORY: -SMOKES UNKNOWN AMOUNT OF CIGARETTES DAILY--UP TO 2 PPD BY HISTORY -USES METHAMPHETAMINES DAILY, ALSO HAS HISTORY OF COCAINE USE -ALCOHOL USE--DRINKS AN UNKNOWN AMOUNT OF ALCOHOL NOW ,BUT HAS HISTORY OF ALCOHOL ABUSE. Physical Exam Vital Signs Vital Signs - First Documented 10/25/22 03:58 Temp 36.6 Pulse 94 Resp 22 B/P (MAP) 141/111 (121) Pulse Ox 96 O2 Delivery Room Air Capillary Refill : Less Than 3 Seconds Height, Weight, BMI Height: 5'5.00" Weight: 178lbs. 0oz. 80.943390fx; 29.00 BMI Method:Estimated General Appearance: No Apparent Distress, WD/WN, Anxious, Other (CONSTANT MOVEMENTS OF ENTIRE BODY AND MOUTH, PT IS CRYING/BLUBBERING, SPEECH RAPID AND ERRATIC AND TANGENTIAL. PT IS VERY UNKEMPT, FILTHY AND MALODOROUS. ) HEENT: Other (MULTIPLE SORES/SCARS/SCABS TO FACE, NO DISCRETE AREAS OF ABSCESS OR CELLULITIS.) Respiratory: Normal Breath Sounds Cardiovascular: Regular Rate, Rhythm, Normal Peripheral Pulses Extremity: Normal Capillary Refill, Other (BOTH FEET WITHOUT ANY WOUNDS, THERE IS NO EVIDENCE OF CELLULITIS OR TINEA. NO EXTERNAL EVIDENCE OF TRAUMA. ) Neurologic/Psychiatric: Alert, No Motor/Sensory Deficits Skin: Warm/Dry, Tattoos/Piercings Progress/Results/Core Measures Suspected Sepsis SIRS Temperature: Pulse: 94 Respiratory Rate: 22 Blood Pressure 141 /111 Mean: 121 Results/Orders My Orders Orders - SERA INIGUEZ DO Ekg Tracing (10/25/22 03:40) Naproxen Tablet (Naprosyn Tablet) (10/25/22 04:15) Vital Signs/I&O 10/25/22 03:58 Temp 36.6 Pulse 94 Resp 22 B/P (MAP) 141/111 (121) Pulse Ox 96 O2 Delivery Room Air Capillary Refill : Less Than 3 Seconds Blood Pressure Mean: 121 Progress Note : Progress Note PT REPEATS THAT SHE JUST WANTS SOMETHING FOR HER FOOT PAIN AND AN ANTIBIOTIC. REVIEWED PRIOR RECORDS--PT WITH A MULTITUDE OF VISITS, VARIOUS COMPLAINTS BUT ALL ESSENTIALLY INVOLVE SUBSTANCE ABUSE DISCUSSED THE IMPORTANCE OF FOLLOW UP WITH [facility] FOR ONGOING MEDICAL CARE AND TREATMENT OF HER CHRONIC FOOT COMPLAINTS, WELL OTHER MEDICAL PROBLEMS, AND THAT THEY COULD DIRECT HER TO SALES MERCHANDISER THAT ARE AVAILABLE IN THE [facility]. Departure Impression Primary Impression: Chronic pain of both feet Additional Impressions: Methamphetamine addiction Homelessness Non-compliance Disposition: 01 HOME, SELF-CARE Condition: Stable Departure-Patient Inst. Decision time for Depature: 04:16 Referrals: [facility] (PCP/Family) Primary Care Physician Patient Instructions: Metatarsalgia (DC) Add. Discharge Instructions: FOLLOW UP WITH [facility] THIS WEEK FOR PAIN All discharge instructions reviewed with patient and/or family. Voiced understanding. Scripts Doxycycline Hyclate (Doxycycline Hyclate) 100 Mg Tablet 100 MG PO BID, #20 TAB 0 Refills Prov: SERA INIGUEZ DO 10/25/22 Naproxen (Naproxen) 500 Mg Tablet. 500 MG PO BID, #20 TAB Prov: SERA INIGUEZ DO 10/25/22 SERA INIGUEZ DO Oct 25, 2022 04:17
== END 2022-10-25 04:21 | disposition home or self-care (01) ==
LOC: EDUNIT# 03:24 → ER 03:26
DX: M79.672 Pain in left foot (principal); M79.671 Pain in right foot; G89.29 Other chronic pain; F15.20 Other stimulant dependence, uncomplicated; F17.210 Nicotine dependence, cigarettes, uncomplicated; Z59.00 Homelessness unspecified; Z91.199 Patient's noncompliance with other medical treatment and regimen due to unspecified reason; Z88.0 Allergy status to penicillin

== ENCOUNTER 2022-12-31 21:26 | Emergency (ER) | payer MEDICARE, MEDICAID ==
[~2022-12-31] VITALS: Ht 170 cm; Wt 81.6 kg
[~2022-12-31 21:26] MED LIST changes: +NAPR500T8 PO
[2022-12-31 21:51] VITALS: BP 170/89
--- NOTE | 2022-12-31 22:04 | ED General ---
General Chief Complaint: Respiratory Problems Stated Complaint: HALLUCINATIONS, COUGH/CONGESTION DIARRHEA BACK TRENT Nursing Triage Note: PATIENT ARIVED AMBULATORY TO ER WITH MULTIPLE COMPLAINTS. PATIENT STATES HOMELESS. STATES HAS "LOWER BACK PAIN" "TROUBLE BREATHING" "COUGHING FITS" AND IS VERY TIRED. STATES "SLEEPS FIVE TIMES A DAY" STATES SHE IS ALSO HALLUCINATING "SEEING DEMONS" HAS NOT TAKEN PSYCH MEDS IN TWO YEARS. Source of Information: Patient Exam Limitations: No Limitations (DELGADO ESPARZA MD) History of Present Illness Date Seen by Provider: Dec 31, 2022 Time Seen by Provider: 22:03 Initial Comments Patient is a 62-year-old female who presents to the emergency room with a chief complaint of multiple somatic complaints. She advises me that she is currently homeless. She has a history of mental health disorders. She is complaining currently of low back pain. She states that she feels a little short of breath. She endorses lower extremity pain, burning in her feet. She also complains of "hallucinating". She states she has never done this before. She denies recent drug use although she states she is 42 years clean of heroin. She does admit to using crack cocaine occasionally for pain management. She states she has been taking Tylenol and ibuprofen for her body aches and pains however its not helping. She denies fevers or chills. She states it does burn a little when she urinates. No abnormal vaginal discharge. No diarrhea. She is quite tearful when asked about suicidal ideation and becomes very upset. She states that she is distraught over not having had contact with one of her daughters in 22 years. She has never laid eyes on her grandchildren. She states that she has been thinking more recently about walking in front of a car to kill herself. She states she has not been on any psychiatric medications for at least a couple of years. She does not have a local therapist. She believes that she needs to be in the hospital due to her thoughts of self-harm. She is requesting pain medication for her headache and low back pain. Timing/Duration: 2-3 Days Severity: Severe Associated Systoms: Headaches, Loss of Appetite, Malaise, Nausea/Vomiting, Weakness, Other (back pain; dysuria) (DELGADO ESPARZA MD) Allergies and Home Medications Allergies Coded Allergies: Bee Sting Kit (Unverified Allergy, Mild, 11/02/08) Penicillins (Unverified Allergy, Mild, 11/02/08) Patient Home Medication List Home Medication List Reviewed: Yes (DELGADO ESPARZA MD) Cyclobenzaprine HCl (Cyclobenzaprine HCl) 10 Mg Tablet, 10 MG PO TID Prescribed by: KUNAL GALICIA MD on 05/26/19 101 Doxycycline Hyclate (Doxycycline Hyclate) 100 Mg Tablet, 100 MG PO BID Prescribed by: RACHAEL JOSEPH on 03/07/202145 Doxycycline Hyclate (Doxycycline Hyclate) 100 Mg Tablet, 100 MG PO BID Prescribed by: CARLOS VALENZUELA on 02/11/22 123 Doxycycline Hyclate (Doxycycline Hyclate) 100 Mg Tablet, 100 MG PO BID Prescribed by: SERA INIGUEZ on 10/25/22416 Metformin HCl (Metformin HCl ER) 500 Mg [id number], 500 MG PO BID Prescribed by: RACHAEL JOSEPH on 03/07/202145 Naproxen (EC-Naproxen) 500 Mg Tablet.dr, 500 MG PO BID PRN for PAIN-MILD (1-4) Prescribed by: CARLOS VALENZUELA on 02/11/22 123 Naproxen (Naproxen) 500 Mg Tablet.dr, 500 MG PO BID Prescribed by: SERA INIGUEZ on 10/25/22416 Paroxetine HCl (Paroxetine HCl) 40 Mg Tablet, 40 MG PO DAILY Prescribed by: RACHAEL JOSEPH on 03/07/202145 Tramadol HCl (Ultram) 50 Mg Tablet, 100 MG PO Q6H Prescribed by: KUNAL GALICIA MD on 05/26/19 101 Trazodone HCl (Trazodone HCl) 150 Mg Tablet, 150 MG PO HS Prescribed by: RACHAEL JOSEPH on 03/07/202145 Review of Systems Review of Systems Constitutional: see HPI EENTM: no symptoms reported Respiratory: cough Cardiovascular: no symptoms reported Gastrointestinal: loss of appetite, nausea Genitourinary: dysuria : No Musculoskeletal: back pain, other (leg pain, muscle cramps; burning in her feet) Skin: dryness, rash (anterior abdominal wall) Psychiatric/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: Anxiety, Depressed, Emotional Problems, Headache, Paresthesia (feet bilaterally) (DELGADO ESPARZA MD) All Other Systems Reviewed Negative Unless Noted: Yes (DELGADO ESPARZA MD) Past Tqciqil-Jvanem-Oucyry Hx Immunizations Up To Date Tetanus Booster (TDap): Unknown PED Vaccines UTD: Yes First/Initial COVID19 Vaccinat: 2020 Second COVID19 Vaccination Dani: 2020 Third COVID19 Vaccination Date: 2020 (DELGADO ESPARZA MD) Seasonal Allergies Seasonal Allergies: No (DELGADO ESPARZA MD) Past Medical History Surgery/Hospitalization HX: 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 PERIPHERAL NEUROPATHY ? 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 History: Menopausal Genitourinary: Yes UTI-Chronic Gastrointestinal: No Musculoskeletal: Yes Back Injury, Chronic Back Pain, Fractures Endocrine: Yes Diabetes, Non-Insulin dep HEENT: No Cataract Hearing Impairment: Denies Cancer: Yes Skin Did You Recieve Any Treatments: Yes What Type of Treatment Did You: Surgical Intervention Psychosocial: Yes (POLYSUBSTANCE ABUSE) Anxiety, Bipolar, Personality Disorder Integumentary: Yes (EAR LESIONS) Recent Skin Changes Blood Disorders: No Adverse Reaction/Blood Tranf: No (DELGADO ESPARZA MD) Family Medical History SOCIAL HISTORY: -SMOKES UNKNOWN AMOUNT OF CIGARETTES DAILY--UP TO 2 PPD BY HISTORY -USES METHAMPHETAMINES DAILY, ALSO HAS HISTORY OF COCAINE USE -ALCOHOL USE--DRINKS AN UNKNOWN AMOUNT OF ALCOHOL NOW ,BUT HAS HISTORY OF ALCOHOL ABUSE. (DELGADO ESPARZA MD) Physical Exam Vital Signs Vital Signs - First Documented 12/31/22 21:51 Temp 36.8 Pulse 99 Resp 18 B/P (MAP) 170/89 (116) Pulse Ox 96 O2 Delivery Room Air (GEETHASERA K DO) Vital Signs Capillary Refill : Less Than 3 Seconds (DELGADO ESPARZA MD) Height, Weight, BMI Height: 5'5.00" Weight: 178lbs. 0oz. [id number]; 28.00 BMI Method:Estimated General Appearance: Anxious, Chronically ill, Other (Very disheveled and unkempt) Eyes: Bilateral Eye Normal Inspection, Bilateral Eye PERRL, Bilateral Eye EOMI HEENT: PERRL/EOMI, Other (Edentulous, appears well-hydrated) Neck: Normal Inspection Respiratory: Lungs Clear, Normal Breath Sounds, No Accessory Muscle Use, No Respiratory Distress Cardiovascular: Regular Rate, Rhythm, Normal Peripheral Pulses Gastrointestinal: Non Tender, Soft Extremity: Normal Capillary Refill, Normal Inspection, Normal Range of Motion, No Calf Tenderness, No Pedal Edema Neurologic/Psychiatric: Alert, Oriented x3, No Motor/Sensory Deficits, 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- XII Norm as Tested, Depressed Affect, Other (Suicidal ideation) Skin: Normal Color, Warm/Dry (DELGADO ESPARZA MD) Progress/Results/Core Measures Suspected Sepsis SIRS Temperature: Pulse: 99 Respiratory Rate: 18 Laboratory Tests 12/31/22 22:34: White Blood Count 10.0 Blood Pressure 170 /89 Mean: 116 Laboratory Tests 12/31/22 22:34: Creatinine 0.97, Platelet Count 378, Total Bilirubin 0.3 (DELGADO ESPARZA MD) Results/Orders Lab Results Laboratory Tests Test 12/31/22 22:34 01/01/23 00:54 01/01/23 01:05 Range/Units White Blood Count 10.0 4.3-11.0 10^3/uL Red Blood Count 4.46 3.80-5.11 10^6/uL Hemoglobin 13.2 11.5-16.0 g/dL Hematocrit 41 35-52 % Mean Corpuscular Volume 91 80-99 fL Mean Corpuscular Hemoglobin 30 25-34 pg Mean Corpuscular Hemoglobin Concent 32 32-36 g/dL Red Cell Distribution Width 13.0 10.0-14.5 % Platelet Count 378 130-400 10^3/uL Mean Platelet Volume 9.3 9.0-12.2 fL Immature Granulocyte % (Auto) 1 % Neutrophils (%) (Auto) 66 42-75 % Lymphocytes (%) (Auto) 24 12-44 % Monocytes (%) (Auto) 7 0-12 % Eosinophils (%) (Auto) 3 0-10 % Basophils (%) (Auto) 0 0-10 % Neutrophils # (Auto) 6.6 1.8-7.8 10^3/uL Lymphocytes # (Auto) 2.4 1.0-4.0 10^3/uL Monocytes # (Auto) 0.7 0.0-1.0 10^3/uL Eosinophils # (Auto) 0.3 0.0-0.3 10^3/uL Basophils # (Auto) 0.0 0.0-0.1 10^3/uL Immature Granulocyte # (Auto) 0.1 0.0-0.1 10^3/uL Sodium Level 138 135-145 MMOL/L Potassium Level 3.6 3.6-5.0 MMOL/L Chloride Level 104 98-107 MMOL/L Carbon Dioxide Level 24 21-32 MMOL/L Anion Gap 10 5-14 MMOL/L Blood Urea Nitrogen 19 H 7-18 MG/DL Creatinine 0.97 0.60-1.30 MG/DL Estimat Glomerular Filtration Rate 66 BUN/Creatinine Ratio 20 Glucose Level 103 70-105 MG/DL Calcium Level 9.3 8.5-10.1 MG/DL Corrected Calcium 9.5 8.5-10.1 MG/DL Total Bilirubin 0.3 0.1-1.0 MG/DL Aspartate Amino Transf (AST/SGOT) 21 5-34 U/L Alanine Aminotransferase (ALT/SGPT) 20 0-55 U/L Alkaline Phosphatase 83 40-136 U/L Total Protein 7.1 6.4-8.2 GM/DL Albumin 3.8 3.2-4.5 GM/DL Salicylates Level < 5.0 L 5.0-20.0 MG/DL Acetaminophen Level < 10 L 10-30 UG/ML Serum Alcohol < 10 <10 MG/DL Urine Color YELLOW Urine Clarity CLEAR Urine pH 7.0 5-9 Urine Specific Sanders 1.015 L 1.016-1.022 Urine Protein NEGATIVE NEGATIVE Urine Glucose (UA) NEGATIVE NEGATIVE Urine Ketones NEGATIVE NEGATIVE Urine Nitrite NEGATIVE NEGATIVE Urine Bilirubin NEGATIVE NEGATIVE Urine Urobilinogen 0.2 < = 1.0 MG/DL Urine Leukocyte Esterase NEGATIVE NEGATIVE Urine RBC (Auto) TRACE H NEGATIVE Urine RBC NONE /HPF Urine WBC NONE /HPF Urine Crystals NONE /LPF Urine Bacteria TRACE /HPF Urine Casts NONE /LPF Urine Mucus NEGATIVE /LPF Urine Culture Indicated NO Urine Opiates Screen NEGATIVE NEGATIVE Urine Oxycodone Screen NEGATIVE NEGATIVE Urine Methadone Screen NEGATIVE NEGATIVE Urine Propoxyphene Screen NEGATIVE NEGATIVE Urine Barbiturates Screen NEGATIVE NEGATIVE Ur Tricyclic Antidepressants Screen NEGATIVE NEGATIVE Urine Phencyclidine Screen NEGATIVE NEGATIVE Urine Amphetamines Screen NEGATIVE NEGATIVE Urine Methamphetamines Screen POSITIVE H NEGATIVE Urine Benzodiazepines Screen NEGATIVE NEGATIVE Urine Cocaine Screen NEGATIVE NEGATIVE Urine Cannabinoids Screen NEGATIVE NEGATIVE SARS-CoV-2 RNA (RT-PCR) Not Detected Not Detecte (SERA INIGUEZ DO) Medications Given in ED (SERA INIGUEZ DO) Vital Signs/I&O 12/31/22 21:51 Temp 36.8 Pulse 99 Resp 18 B/P (MAP) 170/89 (116) Pulse Ox 96 O2 Delivery Room Air (SERA INIGUEZ DO) Vital Signs/I&O Capillary Refill : Less Than 3 Seconds (DELGADO ESPARZA MD) Blood Pressure Mean: 116 Progress Note : Time: 02:30 Progress Note Patient seen and evaluated by me, evaluation today includes physical exam as well as "psych work-up" to include CBC, Chem-12, urinalysis, urine drug screen, aspirin, Tylenol, salicylate levels. Patient had a an EKG as well as COVID testing. Pertinent physical exam findings, disheveled, older than stated age appearing 62-year-old female in no acute distress. Heart is regular, she is slightly tachycardic with a heart rate in the 110 range. Blood pressure is a little elevated at 170/89. She is not hypoxic or febrile. Abdominal exam is benign. She endorses tenderness to light palpation of the skin of the lower extremities and forearms. She has skin thickening. No open wounds are appreciated. Moves all extremities equally. No joint swelling. No percussive tenderness to the lower lumbar spine in the area that she complains of tenderness and pain. 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ly intact. Differential diagnosis based on history and physical examsuicidal ideation, acute exacerbation of chronic psychiatric illness, dehydration, urinary tract infection, intoxication. Labs independently reviewed and interpreted by me. Patient CBC is completely within normal limits. Her Chem-12 is completely within normal limits. Her toxicology for aspirin Tylenol and salicylates is negative/undetectable. Her urinalysis does not reveal any evidence of infection. Her COVID test is negat riley. Her urine drug screen is positive for meth. The patient did tell me that she does not use methamphetamine. Patient is treated in the emergency department with 1 L of normal saline, 10 mg of Compazine and 25 mg of Benadryl IV for her headache. She is not requesting any further pain medication. She has been resting/sleeping comfortably in the emergency department while awaiting "psychiatric clearance" for mental health screen. The plan at this time is to have [facility] see the patient as they are familiar with her. The patient is monitored every 15m for safety. She is in our psychiatric safe room. Vital signs have remained stable. No findings concerning for dehydration, urinary tract infection. (DELGADO ESPARZA MD) Progress Note : Progress Note 1800--ASSUMED CARE OF PT AT SHIFT CHANGE. PLACEMENT IS PENDING. PT IS RESTING QUIETLY AT THIS TIME. PT HAS BEEN FED DINNER TRAY. PT HAS BEEN CLEARED MEDICALLY, AND MENTAL HEALTH SCREEN HAS BEEN DONE PRIOR TO MY ARRIVAL. PT'S INFORMATION HAS BEEN SENT TO [facility] WITH [facility] IN [place], AND ALSO TO [facility] [place] RN WILL CALL TO CHECK STATUS OF PLACEMENT 0155--[facility] CALLED. SPOKE WITH DR. GONZALES, RESIDENT FOR DR. MALDONADO. ACCEPTS PT FOR TRANSFER/ADMIT. RN WILL CONTACT [facility] FOR SECURE TRANSPORT. HE TYPICALLY TRANSPORTS AFTER 0600 PT IS SLEEPING AT THIS TIME. 0425--PT IS NOW SUDDENLY AWAKE, BELLIGERENT, DEMANDING THAT SHE BE ALLOWED TO SMOKE AND WANTS HER CIGARETTES AND HER VICE PRESIDENT OF COMMUNICATIONS RIGHT NOW. . EXPLAINED TO PATIENT THAT SHE COULD NOT SMOKE IN THE HOSPITAL OR HAVE A VICE PRESIDENT OF COMMUNICATIONS IN THE HOSPITAL OR ANYWHERE ON HOSPITAL PROPERTY. OFFERED NICOTINE PATCH AND PT REFUSES PT IS NOW DEMANDING TO LEAVE. SHE IS NOT VOICING ANY SUICIDAL THOUGHTS AT THIS TIME. PT IS VOLUNTARY PSYCH ADMIT. HAVE EXPLAINED TO HER THAT SHE HAS A BED AT [facility] AND ARE WAITING ON TRANSPORTATION. SHE CONTINUES TO DEMAND TO LEAVE, SO SHE CAN SMOKE. PT ADVISED SHE WOULD BE LEAVING AGAINST MEDICAL ADVICE. SHE CONTINUES TO DEMAND TO LEAVE. AMA PAPERS SIGNED. PT HAS BEEN HERE OVER 31 HOURS, AND HAS NOT VOICED ANY SUICIDAL THOUGHTS AT ANY TIME DURING MY SHIFT. (SERA INIGUEZ DO) ECG Initial ECG Impression Date: Jan 01, 2023 Initial ECG Impression Time: 22:31 Initial ECG Rate: 83 Initial ECG Rhythm: Normal Sinus Initial ECG Intervals: Normal Initial ECG Impression: Normal (DELGADO ESPARZA MD) Departure Impression Primary Impression: Suicidal ideation Additional Impressions: Generalized body aches Methamphetamine addiction Homelessness Left against medical advice Disposition: 65 XFER TO PSYCH HOSP/UNIT Condition: Stable Transfer Transfer Reason: Exceeds level of care (NEED FOR INPATIENT PSYCH CARE UNAVAILABLE HERE) Transfer Facility: [facility] Method of Transfer: [facility] (SERA INIGUEZ DO) Departure-Patient Inst. Referrals: [facility] (PCP/Family) Primary Care Physician DELGADO ESPARZA MD Dec 31, 2022 22:04 SERA INIGUEZ DO Jan 01, 2023 18:15
[2022-12-31] MEDS ORDERED: NS IV 1000 ML 1,000 ML IV STA (22:16)
[2022-12-31] MEDS ORDERED: PROCHLORPERAZINE 10 MG/2ML INJ (COMPAZINE) IV ONE (22:30)
[2022-12-31] MEDS ORDERED: diphenhydrAMINE INJ 50 MG/ML VIAL IVP ONE (22:30)
[2022-12-31 22:44] LABS: BASOPHILS % (AUTO) 0 % (0-10); EOSINOPHILS # (AUTO) 0.3 10^3/uL (0.0-0.3); EOSINOPHILS % (AUTO) 3 % (0-10); HEMATOCRIT 41 % (35-52); HEMOGLOBIN 13.2 g/dL (11.5-16.0); LYMPHOCYTES # (AUTO) 2.4 10^3/uL (1.0-4.0); LYMPHOCYTES % (AUTO) 24 % (12-44); MEAN CORPUSCULAR HEMOGLOBIN 30 pg (25-34); MEAN CORPUSCULAR HGB CONC 32 g/dL (32-36); MEAN CORPUSCULAR VOLUME 91 fL (80-99); MEAN PLATELET VOLUME 9.3 fL (9.0-12.2); MONOCYTES # (AUTO) 0.7 10^3/uL (0.0-1.0); MONOCYTES % (AUTO) 7 % (0-12); NEUTROPHILS # (AUTO) 6.6 10^3/uL (1.8-7.8); NEUTROPHILS % (AUTO) 66 % (42-75); PLATELET COUNT 378 10^3/uL (130-400)
[2022-12-31 23:03] LABS: ACETAMINOPHEN < 10 UG/ML (10-30); ALANINE AMINOTRANSFERASE 20 U/L (0-55); ALBUMIN 3.8 GM/DL (3.2-4.5); ALKALINE PHOSPHATASE 83 U/L (40-136); BILIRUBIN,TOTAL 0.3 MG/DL (0.1-1.0); BUN/CREATININE RATIO 20; CALCIUM 9.3 MG/DL (8.5-10.1); CARBON DIOXIDE 24 MMOL/L (21-32); CHLORIDE 104 MMOL/L (98-107); CREATININE SERUM 0.97 MG/DL (0.60-1.30); GFR ESTIMATED 66; GLUCOSE 103 MG/DL (70-105); POTASSIUM 3.6 MMOL/L (3.6-5.0); SALICYLATE < 5.0 MG/DL (5.0-20.0); SODIUM 138 MMOL/L (135-145); TOTAL PROTEIN 7.1 GM/DL (6.4-8.2)
[2023-01-01 01:05] LABS: BILIRUBIN,URINE NEGATIVE (NEGATIVE); CLARITY,URINE CLEAR; COLOR,URINE YELLOW; GLUCOSE, URINE (UA) NEGATIVE (NEGATIVE); KETONES,URINE NEGATIVE (NEGATIVE); LEUKOCYTE ESTERASE ,URINE NEGATIVE (NEGATIVE); NITRITE,URINE NEGATIVE (NEGATIVE); PROTEIN,URINE NEGATIVE (NEGATIVE)
[2023-01-01 01:06] LABS: BACTERIA,URINE TRACE /HPF
[2023-01-01 01:09] LABS: AMPHETAMINE SCREEN, URINE NEGATIVE (NEGATIVE); BARBITURATE SCREEN URINE NEGATIVE (NEGATIVE); BENZODIAZEPINES SCREEN URINE NEGATIVE (NEGATIVE); CANNABINOID SCREEN, URINE NEGATIVE (NEGATIVE); COCAINE SCREEN URINE NEGATIVE (NEGATIVE); METHADONE STAT NEGATIVE (NEGATIVE); OPIATE SCREEN URINE NEGATIVE (NEGATIVE); OXYCODONE STAT NEGATIVE (NEGATIVE); PROPOXYPHENE STAT NEGATIVE (NEGATIVE); TRICYCLIC ANTIDEPRESSANTS SCRE NEGATIVE (NEGATIVE)
[2023-01-01] MEDS ORDERED: ACETAMINOPHEN 500 MG TABLET PO ONE (07:30)
== END 2023-01-02 04:33 | disposition left against medical advice (07) ==
LOC: EDUNIT# 21:26 → ER 21:27
DX: R45.851 Suicidal ideations (principal); F15.20 Other stimulant dependence, uncomplicated; M54.50 Low back pain, unspecified; R51.9 Headache, unspecified; F17.210 Nicotine dependence, cigarettes, uncomplicated; Z59.00 Homelessness unspecified; Z20.822 Contact with and (suspected) exposure to COVID-19
CPT/HCPCS: 80053; 85025; 93005; 99284; G0480 ×3; 36415; 80320; 80329